=== PATIENT | female | born 1965 | race Caucasian/White ===

== ENCOUNTER 2017-07-31 13:02 | Emergency (ER) | payer SELFPAY ==
[~2017-07-31] VITALS: Ht 175.3 cm; Wt 63.5 kg
[~2017-07-31 13:02] MED LIST: IBUP400T18 PO; MULT1TAB52 PO; PRED50TA PO; PSEU120T58 PO
--- NOTE | 2017-07-31 13:56 | PHYS DOC ---
Past History Past Medical History: Other Past Surgical History: Other Smoking: Cigarettes, Greater than 1 pack/day Alcohol Use: None Drug Use: None Adult General Chief Complaint Chief Complaint: FLU SYMPTOM HPI HPI 52-year-old female patient with history of smoking complaining of cough and fever up to 101 and myalgia since yesterday. Patient complaining of shortness of breath and nausea without vomiting and hurting all over. Patient had sick contacts at home with positive flu and she thinks she has flu also. Review of Systems Review of Systems Constitutional: Reports fever and chills and generalized weakness Eyes: Denies change in visual acuity, redness, or eye pain [] HENT: Reports nasal congestion and sore throat and earache Respiratory: Reports cough and shortness of breath Cardiovascular: No additional information not addressed in HPI [] GI: Denies abdominal pain, vomiting, bloody stools or diarrhea , reports nausea [] : Denies dysuria or hematuria [] Musculoskeletal: Denies back pain or joint pain , reports myalgias she[] Integument: Denies rash or skin lesions , Neurologic: Denies headache, focal weakness or sensory changes [] Endocrine: Denies polyuria or polydipsia [] All other systems were reviewed and found to be within normal limits, except as documented in this note. Current Medications Current Medications Current Medications Medications (Trade) Dose Ordered Sig/Fantasma Start Time Stop Time Status Last Admin Dose Admin Acetaminophen/ Hydrocodone Bitart (Lortab 5/325) 1 tab 1X ONCE 07/31/17 13:45 07/31/17 13:46 DC Ondansetron HCl (Zofran Odt) 4 mg 1X ONCE 07/31/17 13:45 07/31/17 13:46 DC Allergies Allergies Allergies Coded Allergies Type Severity Reaction Last Updated Verified aspirin Allergy Intermediate gi 03/21/14 No tetracycline Allergy Intermediate gi 03/21/14 No Physical Exam Physical Exam Constitutional: Well developed, well nourished, mild distress,anxious, non- toxic appearance. [] HENT: Normocephalic, atraumatic, bilateral external ears normal, oropharynx moist, no oral exudates, nose normal. [] Eyes: PERRLA, EOMI, conjunctiva normal, no discharge. [] Neck: Normal range of motion, no tenderness, supple, no stridor. [] Cardiovascular:Heart rate regular rhythm, no murmur [] Lungs & Thorax: No respiratory distress, mild rhonchi and wheezing Abdomen: Bowel sounds normal, soft, no tenderness, no masses, no pulsatile masses. [] Skin: Warm, dry, no erythema, no rash. [] Back: No tenderness, no CVA tenderness. [] Extremities: No tenderness, no cyanosis, no clubbing, ROM intact, no edema. [] Neurologic: Alert and oriented X 3, normal motor function, normal sensory function, no focal deficits noted. [] Psychologic: Affect normal, judgement normal, mood normal. [] Current Patient Data Vital Signs Vital Signs Date Time Temp Pulse Resp B/P (MAP) Pulse Ox O2 Delivery O2 Flow Rate FiO2 07/31/17 13:46 97.9 82 22 98 EKG EKG [] Radiology/Procedures Radiology/Procedures [] Course & Med Decision Making Course & Med Decision Making Pertinent Labs reviewed. (See chart for details) Evaluation of patient in ER showed 52-year-old female patient with exposure to positive flu at home and complaining of myalgia cough and congestion since yesterday. She had mild rhonchi with negative flu test. Patient felt better after treatment in ER. Patient psychiatric to quit smoking and plan discharge patient home with diagnoses of upper respiratory infection. [] Dragon Disclaimer Dragon Disclaimer This electronic medical record was generated, in whole or in part, using a voice recognition dictation system. Departure Departure: Impression: Primary Impression: Upper respiratory infection Additional Impressions: Tobacco abuse Tobacco abuse counseling Disposition: HOME, SELF-CARE (At 1538) Condition: IMPROVED Referrals: PCP,NO (PCP) Patient Instructions: Smoking Cessation, Upper Respiratory Infection, Adult Additional Instructions: Quit smoking Drink plenty of liquids Follow-up with your primary care physician in 3-5 days Return to ER if not getting better Scripts Benzonatate (TESSALON PERLE) 100 Mg Capsule 1 CAP PO TID, #30 CAP Prov: KAY ARMENDARIZ MD 07/31/17 Hydrocodone Bit/Acetaminophen (NORCO 5-325 TABLET) 1 Each Tablet 1 TAB PO PRN Q6HRS Y for PAIN, #15 TAB 0 Refills Prov: KAY ARMENDARIZ MD 07/31/17 Amoxicillin (AMOXICILLIN) 500 Mg Capsule 1 CAP PO TID, #30 CAP Prov: KAY ARMENDARIZ MD 07/31/17 Problem Qualifiers KAY ARMENDARIZ MD Jul 31, 2017 13:56
[2017-07-31] MEDS: ONDANSETRON ODT 4 MG TAB.RAPDIS PO ONE (14:07)
[2017-07-31] MEDS: HYDROcodone/APAP 5/325MG 1 TAB TABLET PO ONE (14:07)
[2017-07-31 14:09] LABS: INFLUENZA A PATIENT NEGATIVE (NEGATIVE); INFLUENZA B PATIENT NEGATIVE (NEGATIVE)
[2017-07-31 14:49] LABS: BACTERIA,URINE 0 /HPF (0-FEW); BILIRUBIN,URINE NEG (NEG); CLARITY,URINE CLEAR; COLOR,URINE YELLOW; GLUCOSE,URINE NEG (NEG); NITRITE,URINE NEG (NEG); RBC,URINE 0 /HPF (0-2); SQUAMOUS EPITHELIAL CELL,UR OCC /LPF; UROBILINOGEN,URINE 0.2 mg/dL (0.2 mg/dL); WBC,URINE OCC /HPF (0-4)
[2017-07-31] MEDS ORDERED: HYDR-971 PO (15:42)
[2017-07-31] MEDS ORDERED: BENZ100C PO (15:42)
[2017-07-31] MEDS ORDERED: AMOX500C PO (15:42)
[2017-07-31 15:55] VITALS: BP 122/80
== END 2017-07-31 15:55 | disposition home or self-care (01) ==
LOC: ER 13:02
DX: J06.9 Acute upper respiratory infection, unspecified (principal); F17.210 Nicotine dependence, cigarettes, uncomplicated; Z71.6 Tobacco abuse counseling; Z88.6 Allergy status to analgesic agent; Z88.1 Allergy status to other antibiotic agents
CPT/HCPCS: 81001; 87804; 99284; Q0162

== ENCOUNTER 2017-08-06 04:42 | Emergency (ER) | payer SELFPAY ==
[~2017-08-06] VITALS: Ht 175.3 cm; Wt 63.5 kg
[~2017-08-06 04:42] MED LIST changes: +AMOX500C PO; +BENZ100C PO; +HYDR-971 PO
--- NOTE | 2017-08-06 05:01 | PHYS DOC ---
Past History Past Medical History: Other Past Surgical History: Other Smoking: Cigarettes, Greater than 1 pack/day Alcohol Use: None Drug Use: None Adult General Chief Complaint Chief Complaint: ALLERGIC REACTION HPI HPI Patient is a 52-year-old female who presents with complaints of allergic reaction, body rash, trouble breathing. Patient was recently started on amoxicillin for an upper respiratory infection. Patient started developing rash yesterday. Patient denies any fevers, chills. Patient does have a cough. Patient describes the rash as itchy, not painful Review of Systems Review of Systems Constitutional: Denies fever or chills [] Eyes: Denies change in visual acuity, redness, or eye pain [] HENT: Yes to nasal congestion, dry throat. Nonproductive cough Respiratory: Nonproductive cough, shortness of breath Cardiovascular: No pain GI: Denies abdominal pain, nausea, vomiting, Musculoskeletal: Denies back pain or joint pain [] Integument: Diffuse itchy rash Neurologic: Denies headache, focal weakness or sensory changes [] lydipsia [] All other systems were reviewed and found to be within normal limits, except as documented in this note. Allergies Allergies Allergies Coded Allergies Type Severity Reaction Last Updated Verified aspirin Allergy Intermediate gi 03/21/14 No tetracycline Allergy Intermediate gi 03/21/14 No Physical Exam Physical Exam Constitutional: Well developed, well nourished, no acute distress, non-toxic appearance. [] HENT: Normocephalic, atraumatic, normal oropharynx without lesions, airways patent, no drooling Eyes: EOMI, conjunctiva normal, no discharge. [] Neck: Normal range of motion, no tenderness, supple, no stridor. [] Cardiovascular:Heart rate regular rhythm, no murmur, equal pulses, normal perfusion Lungs & Thorax: Bilateral breath sounds clear to auscultation, no tachypnea, no wheezing, no rales, no rhonchi Abdomen: Bowel sounds normal, soft, no tenderness, Skin: Warm, dry, no erythema, diffuse erythematous macular nonpainful rash Back: No tenderness, Extremities: No tenderness, ROM intact, no edema. [] Neurologic: Alert and oriented X 3, normal motor function, normal speech no focal deficits noted. [] Psychologic: Affect normal, judgement normal, mood normal. [] EKG EKG [] Radiology/Procedures Radiology/Procedures [] Course & Med Decision Making Course & Med Decision Making Pertinent Labs and Imaging studies reviewed. (See chart for details) Patient looks well and is nontoxic. Vital signs are unremarkable at the time of the ED evaluation. Of note, patient is satting 98% on room air and the labs are clear to auscultation bilaterally. There is no accessory muscle use, no tachypnea, no respiratory distress. The oropharynx is normal and the airways patent, there is no lesions or mucosal involvement. Patient has been having a rash for several hours now. Blood pressure is unremarkable. There are no signs of anaphylaxis or respiratory compromise at the time of the ED evaluation. Given the presentation I do not believe the patient is in need of imaging or labs and his stable for outpatient follow-up. Strict return precautions have been discussed with the patient progress to follow up as directed. [] Dragon Disclaimer Dragon Disclaimer This electronic medical record was generated, in whole or in part, using a voice recognition dictation system. Departure Departure: Impression: Primary Impression: Allergic reaction Disposition: HOME, SELF-CARE Condition: STABLE Referrals: PCP,NO (PCP) Please follow with your doctor or one of the clinics in the list provided to you for recheck and reevaluation in 2-4 days. Please return to the ED immediately if you start having any problems swallowing or with with speech or breathing problems or any other new concerns arise Patient Instructions: Allergies, Generic Scripts Diphenhydramine Hcl (BENADRYL) 25 Mg Capsule 25 MG PO BID for 5 Days, #10 CAP Prov: Phu ALEJO MD 08/06/17 Famotidine (PEPCID) 20 Mg Tablet 1 TAB PO BID for 5 Days, #10 TAB 3 Refills Prov: Phu ALEJO MD 08/06/17 Phu ALEJO MD Aug 06, 2017 05:01
[2017-08-06] MEDS ORDERED: FAMO-63 PO (05:10)
[2017-08-06] MEDS ORDERED: DIPH25CA58 PO (05:10)
[2017-08-06 05:14] VITALS: BP 132/74
[2017-08-06] MEDS ORDERED: FAMOTIDINE 20 MG TABLET PO ONE (05:15)
[2017-08-06] MEDS ORDERED: DEXAMETHASONE 4 MG TABLET PO ONE (05:15)
[2017-08-06] MEDS ORDERED: diphenhydrAMINE HCL 25 MG CAPSULE PO ONE (05:15)
[2017-08-06] MEDS ORDERED: diphenhydrAMINE 50 MG/ML VIAL IVP ONE (05:30)
[2017-08-06] MEDS ORDERED: DEXAMETHASONE SOD PHOS 10 MG/ML VIAL IV ONE (05:30)
[2017-08-06] MEDS ORDERED: FAMOTIDINE 20 MG/2 ML VIAL IVP ONE (05:30)
== END 2017-08-06 05:31 | disposition home or self-care (01) ==
LOC: ER 04:42
DX: T78.40XA Allergy, unspecified, initial encounter (principal); F17.210 Nicotine dependence, cigarettes, uncomplicated; Z88.6 Allergy status to analgesic agent; Z88.1 Allergy status to other antibiotic agents; X58.XXXA Exposure to other specified factors, initial encounter
CPT/HCPCS: 96374; 96375; 99284; J1100; J1200; S0028

== ENCOUNTER 2017-08-08 02:26 | Emergency (ER) | payer SELFPAY ==
[~2017-08-08] VITALS: Ht 175.3 cm; Wt 60.5 kg
[~2017-08-08 02:26] MED LIST changes: +DIPH25CA58 PO; +FAMO-63 PO
--- NOTE | 2017-08-08 02:29 | ED.ADGEN ---
Past History Past Medical History: Other Past Surgical History: Other Smoking: Cigarettes, Greater than 1 pack/day Alcohol Use: None Drug Use: None Adult General Chief Complaint Chief Complaint " This all started after taking some amoxicillin... I was in here the other day.. and got some pepcid and benadryl.. but it jaylen gotten worse again.." HPI HPI Patient is a 52 year old female who presents with above hx and complaints of diffuse body rash that appears to be somewhat hives/urticaria in presentation. Patient not currently on any steroids but has been taking Pepcid as directed. Fill other changes in soaps, detergents, foods, or other exposures.. No recent travel or specific ill contacts. Patient does smoke. Review of Systems Review of Systems Constitutional: Denies fever or chills [] Eyes: Denies change in visual acuity, redness, or eye pain [] HENT: Denies nasal congestion or sore throat [] Respiratory: Denies cough or shortness of breath [] Cardiovascular: No additional information not addressed in HPI [] GI: Denies abdominal pain, nausea, vomiting, bloody stools or diarrhea [] : Denies dysuria or hematuria [] Musculoskeletal: Denies back pain or joint pain [] Integument: Complains of diffuse rash Neurologic: Denies headache, focal weakness or sensory changes [] Endocrine: Denies polyuria or polydipsia [] All other systems were reviewed and found to be within normal limits, except as documented in this note. Family History Family History Noncontributory Current Medications Current Medications Current Medications Medications (Trade) Dose Ordered Sig/Fantasma Start Time Stop Time Status Last Admin Dose Admin Albuterol Sulfate (Ventolin Hfa) 2 puff 1X ONCE 08/08/17 04:30 08/08/17 04:31 DC 08/08/17 04:08 2 PUFF Albuterol/ Ipratropium (Duoneb) 3 ml STK-MED ONCE 08/08/17 02:40 08/08/17 02:41 DC Diphenhydramine HCl (Benadryl) 50 mg 1X ONCE 08/08/17 02:45 08/08/17 02:46 DC 08/08/17 02:43 50 MG Famotidine (Pepcid Vial) 20 mg STK-MED ONCE 08/08/17 02:40 08/08/17 02:41 DC Lorazepam (Ativan) 2 mg 1X ONCE 08/08/17 04:45 08/08/17 04:46 DC 08/08/17 04:31 2 MG Methylprednisolone Sodium Succinate (SOLU-Medrol 125MG VIAL) 125 mg STK-MED ONCE 08/08/17 02:40 08/08/17 02:41 DC Oxycodone/ Acetaminophen (Percocet 10/325) 1 tab 1X ONCE 08/08/17 04:00 08/08/17 04:02 DC 08/08/17 03:25 1 TAB Oxycodone/ Acetaminophen (Percocet 5/325) 1 tab STK-MED ONCE 08/08/17 03:20 08/08/17 03:21 DC Allergies Allergies Allergies Coded Allergies Type Severity Reaction Last Updated Verified amoxicillin Allergy Intermediate Rash 08/08/17 Yes aspirin Allergy Intermediate gi 08/08/17 No tetracycline Allergy Intermediate gi 08/08/17 No NSAIDS (Non-Steroidal Anti-Inflamma Adverse Reaction Intermediate Nausea and Vomiting 08/08/17 Yes Physical Exam Physical Exam Constitutional: Well developed, well nourished, in moderately acute distress, non-toxic appearance. [] HENT: Normocephalic, atraumatic, bilateral external ears normal, oropharynx moist, no oral exudates, Red hair. No stridor. Rhinorrhea. Eyes: PERRLA, EOMI, conjunctiva normal, no discharge. [] Neck: Normal range of motion, no tenderness, supple, no stridor. [] Cardiovascular:Heart rate regular rhythm, no murmur [] Lungs & Thorax: Bilateral breath sounds equal apexes few scattered wheezes on auscultation [] Abdomen: Bowel sounds normal, soft, no tenderness, no masses, no pulsatile masses. [] Skin: Warm, dry, no erythema, hives-like rash Back: No tenderness, no CVA tenderness. [] Extremities: No tenderness, no cyanosis, no clubbing, ROM intact, no edema. [] Neurologic: Alert and oriented X 3, normal motor function, normal sensory function, no focal deficits noted. [] Psychologic: Affect anxious, judgement normal, mood normal. [] Current Patient Data Vital Signs Vital Signs Date Time Temp Pulse Resp B/P (MAP) Pulse Ox O2 Delivery O2 Flow Rate FiO2 08/08/17 04:30 97.6 71 22 140/72 (94) 96 Room Air EKG EKG [] Radiology/Procedures Radiology/Procedures [] Course & Med Decision Making Course & Med Decision Making Pertinent Labs and Imaging studies reviewed. (See chart for details). Continue Pepcid or Zantac. You may crush the Pepcid and Zantac tablets.. . Take Benadryl 50 mg up 4 times a day. Take prednisone 50 mg a day for 5 days. Push fluids. Follow-up primary care. If rash does not clear will need further work up and eval. Even possible skin bx. Pt. counseled on smoking cessation. [] Final Impression Final Impression 1. Allergic Reaction[] 2. Delayed Drug Reaction 3. Hx of Viral URI 4. Possible Allergy to PCN Problems: Dragon Disclaimer Dragon Disclaimer This electronic medical record was generated, in whole or in part, using a voice recognition dictation system. YOLY BRODERICK MD Aug 08, 2017 02:29
[2017-08-08] MEDS ORDERED: diphenhydrAMINE 50 MG/ML VIAL ONE (02:40)
[2017-08-08] MEDS ORDERED: methylPREDNISolone SOD SUCC PF 125 MG/2 ML VIAL. ONE (02:40)
[2017-08-08] MEDS ORDERED: IPRATRPIUM/ALBUTEROL 0.5/2.5MG 3 ML NEBU. ONE (02:40)
[2017-08-08] MEDS ORDERED: FAMOTIDINE 20 MG/2 ML VIAL ONE (02:40)
[2017-08-08] MEDS ORDERED: diphenhydrAMINE 50 MG/ML VIAL IVP ONE (02:45)
[2017-08-08] MEDS ORDERED: PRED50TA PO (02:51)
[2017-08-08] MEDS ORDERED: RANI150T6 PO (02:51)
[2017-08-08] MEDS ORDERED: FAMOTIDINE 20 MG/2 ML VIAL IVP ONE (03:00)
[2017-08-08] MEDS ORDERED: IPRATRPIUM/ALBUTEROL 0.5/2.5MG 3 ML NEBU. NEB ONE (03:00)
[2017-08-08] MEDS ORDERED: methylPREDNISolone SOD SUCC PF 125 MG/2 ML VIAL. IV ONE (03:00)
[2017-08-08] MEDS ORDERED: oxyCODONE/APAP 5/325 1 TAB TABLET ONE (03:20)
[2017-08-08] MEDS ORDERED: oxyCODONE/APAP 10/325 1 TAB TABLET PO ONE (04:00)
[2017-08-08 04:30] VITALS: BP 140/72
[2017-08-08] MEDS ORDERED: ALBUTEROL SULFATE 8GM INHALER. INH ONE (04:30)
[2017-08-08] MEDS ORDERED: LORazepam 1 MG TABLET PO ONE (04:45)
== END 2017-08-08 04:40 | disposition home or self-care (01) ==
LOC: ER 02:26
DX: T47.0X5A Adverse effect of histamine H2-receptor blockers, initial encounter (principal); F17.210 Nicotine dependence, cigarettes, uncomplicated; Z88.1 Allergy status to other antibiotic agents; Z88.6 Allergy status to analgesic agent; Y92.89 Other specified places as the place of occurrence of the external cause
CPT/HCPCS: 94640; 96374; 96375; 99284; J1200; J2930; J7613; J7620; S0028; 94664

== ENCOUNTER 2017-08-15 05:44 | Emergency (ER) | payer SELFPAY ==
[~2017-08-15] VITALS: Ht 175.3 cm; Wt 60.5 kg
[~2017-08-15 05:44] MED LIST changes: +RANI150T6 PO
[2017-08-15] MEDS ORDERED: 0.9 % SODIUM CHLORIDE 10 ML DISP.SYRIN. IV PRN (06:15)
[2017-08-15] MEDS ORDERED: IV NORMAL SALINE 1,000ML 1,000 ML IV SCH (06:15)
--- NOTE | 2017-08-15 06:19 | PHYS DOC ---
Past History Past Medical History: Other Past Surgical History: Other Smoking: Cigarettes, Greater than 1 pack/day Alcohol Use: None Drug Use: None Adult General Chief Complaint Chief Complaint: rash, blister in mouth HPI HPI 52-year-old female patient states she had upper respiratory infection 1 month ago and treated with amoxicillin and developed a pruritic generalized rash and was seen in this emergency room in 2 other medication and treated for allergic rash. Patient said the rash comes and goes and complaining of generalized pruritic rash for the last 2 days with redness of her feet. Patient complaining of painful onset of her lips and mouth since yesterday and station fever of 103. Patient states her cough does not getting better and she still has dry cough with nasal congestion. Patient did not follow-up with the primary care physician for the last 1 month. Review of Systems Review of Systems Constitutional: Reports fever Eyes: Denies change in visual acuity, redness, or eye pain [] HENT: Postnasal congestion] Respiratory: Reports cough and shortness of breath Cardiovascular: No additional information not addressed in HPI [] GI: Denies abdominal pain, nausea, vomiting, bloody stools or diarrhea [] : Denies dysuria or hematuria [] Musculoskeletal: reports rash and oral ulcers Neurologic: Denies headache, focal weakness or sensory changes [] Endocrine: Denies polyuria or polydipsia [] All other systems were reviewed and found to be within normal limits, except as documented in this note. Current Medications Current Medications Current Medications Medications (Trade) Dose Ordered Sig/Fantasma Start Time Stop Time Status Last Admin Dose Admin Famotidine (Pepcid Vial) 20 mg 1X ONCE 08/15/17 06:15 08/15/17 06:16 UNV Methylprednisolone Sodium Succinate (SOLU-Medrol 125MG VIAL) 125 mg 1X ONCE 08/15/17 06:15 08/15/17 06:16 UNV Sodium Chloride (Normal Saline Flush) 10 ml QSHIFT PRN 08/15/17 06:15 UNV Allergies Allergies Allergies Coded Allergies Type Severity Reaction Last Updated Verified amoxicillin Allergy Intermediate Rash 08/08/17 Yes aspirin Allergy Intermediate gi 08/08/17 No tetracycline Allergy Intermediate gi 08/08/17 No NSAIDS (Non-Steroidal Anti-Inflamma Adverse Reaction Intermediate Nausea and Vomiting 08/08/17 Yes Physical Exam Physical Exam Constitutional: Well developed, well nourished, mild distress, non-toxic appearance, anxious. [] HENT: Normocephalic, atraumatic, bilateral external ears normal, oropharynx moist, no oral exudates, aphthous lesion in oral mucosa, nose normal. [] Eyes: PERRLA, EOMI, conjunctiva normal, no discharge. [] Neck: Normal range of motion, no tenderness, supple, no stridor. [] Cardiovascular:Heart rate regular rhythm, no murmur [] Lungs & Thorax: Bilateral breath sounds clear to auscultation [] Abdomen: Bowel sounds normal, soft, no tenderness, no masses, no pulsatile masses. [] Skin: Generalized micropapular rash Back: No tenderness, no CVA tenderness. [] Extremities: No tenderness, no cyanosis, no clubbing, ROM intact, no edema. [] Neurologic: Alert and oriented X 3, normal motor function, normal sensory function, no focal deficits noted. [] Psychologic: Anxious EKG EKG [] Radiology/Procedures Radiology/Procedures Chest x-ray interpreted by me and did not show acute finding[] Course & Med Decision Making Course & Med Decision Making Pertinent Labs and Imaging studies reviewed. (See chart for details) Evaluation of patient in ER showed 52-year-old female patient with complaining of intermittent rash for 1 month and blister like lesion in her mouth. Patient has aphthous with generalized micropapular rash. Labs and chest x-ray was unremarkable. Patient felt better with treatment in ER. Patient psychiatric to follow-up with her primary care physician for chronic rash. discharge: I've spoken with the patient and/or caregivers. I've explained the patient's condition, diagnosis and treatment plan based on information available to me at this time. I've answered the patient's and/or caregivers questions and addressed any concerns. The patient and/or caregivers have a good understanding the patient's diagnosis, condition and treatment plan as can be expected at this point. Vital signs have been stabilized. The patient's condition is stable for discharge from the emergency department. The patient will pursue further outpatient evaluation with her primary care provider or other designated consulting physician as outlined in the discharge instructions. Patient and/or caregivers are agreeable to this plan of care and follow-up instructions have been explained in detail. The patient and/or caregivers have received these instructions in written format and expressed understanding of these discharge instructions. The patient and her caregivers are aware that if any significant change in condition or worsening of symptoms should prompt him to immediately return to this of the closest emergency department. If an emergent department is not readily available I would encourage him to call 911.] Keyur Disclaimer Keyur Disclaimer This electronic medical record was generated, in whole or in part, using a voice recognition dictation system. Departure Departure: Impression: Primary Impression: Aphthous ulcer Additional Impression: Allergic drug rash Disposition: HOME, SELF-CARE (At 0748) Condition: IMPROVED Referrals: PCP,NO (PCP) Patient Instructions: Drug Allergy, Stomatitis Additional Instructions: Drink plenty of liquids Follow-up with your primary care physician in 3-5 days Return to ER if not getting better Scripts [lidocaine viscus] No Conflict Check 1 JAVIER TOP, #120 ML Prov: KAY ARMENDARIZ MD 08/15/17 Hydroxyzine Hcl (HYDROXYZINE HCL) 25 Mg Tablet 1 TAB PO TID, #30 TAB Prov: KAY ARMENDARIZ MD 08/15/17 Methylprednisolone (MEDROL) 4 Mg Tab.ds.pk 1 PKG PO UD, #1 PKG Prov: KAY ARMENDARIZ MD 08/15/17 Problem Qualifiers KAY ARMENDARIZ MD Aug 15, 2017 06:19
[2017-08-15] MEDS ORDERED: LIDOCAINE 2% VISCOUS 15 ML SOLUTION. SWSW ONE (06:30)
[2017-08-15] MEDS ORDERED: diphenhydrAMINE 50 MG/ML VIAL IVP ONE (06:30)
[2017-08-15] MEDS ORDERED: methylPREDNISolone SOD SUCC PF 125 MG/2 ML VIAL. IV ONE (06:30)
[2017-08-15] MEDS ORDERED: FAMOTIDINE 20 MG/2 ML VIAL IVP ONE (06:30)
[2017-08-15] MEDS ORDERED: IPRATRPIUM/ALBUTEROL 0.5/2.5MG 3 ML NEBU. NEB ONE (06:30)
[2017-08-15 07:06] LABS: INFLUENZA A PATIENT NEGATIVE (NEGATIVE); INFLUENZA B PATIENT NEGATIVE (NEGATIVE)
[2017-08-15 07:14] LABS: BACTERIA,URINE FEW /HPF (0-FEW); BILIRUBIN,URINE NEG (NEG); CLARITY,URINE HAZY; COLOR,URINE YELLOW; GLUCOSE,URINE NEG (NEG); NITRITE,URINE NEG (NEG); RBC,URINE RARE /HPF (0-2); SQUAMOUS EPITHELIAL CELL,UR FEW /LPF; UROBILINOGEN,URINE 0.2 mg/dL (0.2 mg/dL)
[2017-08-15 07:23] LABS: BASO % 1 % (0-3); EOS # 0.2 x10^3/uL (0.0-0.7); EOS % 3 % (0-3); LYMPH # 0.8 x10^3/uL (1.0-4.8); LYMPH % 16 % (24-48); MEAN CORPUSCULAR HEMOGLOBIN 31 pg (25-35); MEAN CORPUSCULAR HGB CONC 34 g/dL (31-37); MEAN CORPUSCULAR VOLUME 91 fL (79-100); MONO # 0.5 x10^3/uL (0.0-1.1); MONO % 9 % (0-9); NEUT # 3.8 x10^3uL (1.8-7.7); NEUT % 72 % (31-73); PLATELET COUNT 164 x10^3/uL (140-400); RED BLOOD COUNT 3.87 x10^6/uL (3.50-5.40); RED CELL DISTRIBUTION WIDTH 13.1 % (11.5-14.5); WHITE BLOOD COUNT 5.3 x10^3/uL (4.0-11.0)
[2017-08-15 07:40] LABS: ALBUMIN 2.9 g/dL (3.4-5.0); ALBUMIN/GLOBULIN RATIO 0.6 (1.0-1.7); CALCIUM 8.8 mg/dL (8.5-10.1); CREATININE 0.9 mg/dL (0.6-1.0); GFR 65.2; POTASSIUM 4.2 mmol/L (3.5-5.1); TOTAL BILIRUBIN 0.5 mg/dL (0.2-1.0); TOTAL PROTEIN 7.5 g/dL (6.4-8.2)
[2017-08-15] MEDS ORDERED: METH4TAB2 PO (07:53)
[2017-08-15] MEDS ORDERED: LIDOCAINE VISCUS TOP (07:53)
[2017-08-15] MEDS ORDERED: HYDR25TA PO (07:53)
[2017-08-15 08:17] VITALS: BP 98/55
--- NOTE | 2017-08-15 09:34 | RAD ---
PA AND LATERAL CHEST RADIOGRAPH Clinical Indication: cough. Shortness of breath x1 month. Comparison: None. Findings: The cardiomediastinal silhouette is normal. Pulmonary vasculature is normal. Mild left lower lobe bronchopneumonia. Left nipple shadow is incidentally noted. No pleural effusion or pneumothorax is seen. There is no acute bone abnormality. IMPRESSION: Left lower lobe bronchopneumonia.
== END 2017-08-15 08:20 | disposition home or self-care (01) ==
LOC: ER 05:44
DX: L27.0 Generalized skin eruption due to drugs and medicaments taken internally (principal); K12.0 Recurrent oral aphthae; T50.905A Adverse effect of unspecified drugs, medicaments and biological substances, initial encounter; F17.210 Nicotine dependence, cigarettes, uncomplicated; Z88.6 Allergy status to analgesic agent; Z88.1 Allergy status to other antibiotic agents; Y92.89 Other specified places as the place of occurrence of the external cause
CPT/HCPCS: 36415; 71046; 80053; 81001; 85025; 87804; 96361; 96374; 96375; 99285; J1200; J2930; J7620; S0028; J7030

== ENCOUNTER 2017-10-01 10:48 | Emergency (ER) | payer SELFPAY ==
[~2017-10-01] VITALS: Ht 175.3 cm; Wt 62.6 kg
[~2017-10-01 10:48] MED LIST changes: +HYDR25TA PO; +LIDOCAINE VISCUS TOP; +METH4TAB2 PO
[2017-10-01] MEDS ORDERED: LIDO:MAALOX 1:1 20 ML SINGLE DOSE. PO ONE (11:30)
[2017-10-01 11:53] LABS: BASO % 1 % (0-3); EOS # 0.1 x10^3/uL (0.0-0.7); EOS % 3 % (0-3); HEMATOCRIT 37.3 % (36.0-47.0); HEMOGLOBIN 12.7 g/dL (12.0-15.5); LYMPH # 0.7 x10^3/uL (1.0-4.8); LYMPH % 19 % (24-48); MEAN CORPUSCULAR HEMOGLOBIN 30 pg (25-35); MEAN CORPUSCULAR HGB CONC 34 g/dL (31-37); MEAN CORPUSCULAR VOLUME 89 fL (79-100); MONO # 0.3 x10^3/uL (0.0-1.1); MONO % 9 % (0-9); NEUT # 2.5 x10^3uL (1.8-7.7); NEUT % 67 % (31-73); PLATELET COUNT 180 x10^3/uL (140-400); RED CELL DISTRIBUTION WIDTH 14.2 % (11.5-14.5); WHITE BLOOD COUNT 3.7 x10^3/uL (4.0-11.0)
--- NOTE | 2017-10-01 11:55 | PHYS DOC ---
Past History Past Medical History: Other Past Surgical History: Other Smoking: Cigarettes, Greater than 1 pack/day Alcohol Use: Occasionally Drug Use: None Social History Narrative: history of marijuana use many years ago Adult General Chief Complaint Chief Complaint: CHOKING HPI HPI 52-year-old female patient state for the last 4 days she feels something is stuck in her throat and unable to eat large piece of food and had to eat very small piece of food. Patient states she was able to burp because she feels some tingling in her throat does not let the burp comes out. Patient denies vomiting , diarrhea, abdominal pain, chest pain, history of the same problem. Patient states she took [id number] Prilosec without improvement of her condition, dizziness, weakness, dehydration. Review of Systems Review of Systems Constitutional: Denies fever or chills [] Eyes: Denies change in visual acuity, redness, or eye pain [] HENT: Denies nasal congestion or sore throat [] Respiratory: Denies cough or shortness of breath [] Cardiovascular: No additional information not addressed in HPI [] GI: Denies abdominal pain, nausea, vomiting, bloody stools or diarrhea [] : Denies dysuria or hematuria [] Musculoskeletal: Denies back pain or joint pain [] Integument: Denies rash or skin lesions [] Neurologic: Denies headache, focal weakness or sensory changes [] Endocrine: Denies polyuria or polydipsia [] All other systems were reviewed and found to be within normal limits, except as documented in this note. Current Medications Current Medications Current Medications Medications (Trade) Dose Ordered Sig/[facility] Start Time Stop Time Status Last Admin Dose Admin Multi-Ingredient Mouthwash/Gargle (Gi Cocktail) 20 ml 1X ONCE 10/01/17 11:30 10/01/17 11:31 DC 10/01/17 11:16 20 ML Allergies Allergies Allergies Coded Allergies Type Severity Reaction Last Updated Verified amoxicillin Allergy Intermediate Rash 10/01/17 Yes aspirin Allergy Intermediate gi 10/01/17 No tetracycline Allergy Intermediate gi 10/01/17 No NSAIDS (Non-Steroidal Anti-Inflamma Adverse Reaction Intermediate Nausea and Vomiting 10/01/17 Yes Physical Exam Physical Exam Constitutional: Well developed, well nourished, mild distress, non-toxic appearance. [] HENT: Normocephalic, atraumatic, bilateral external ears normal, oropharynx moist, no oral exudates, nose normal. [] Eyes: PERRLA, EOMI, conjunctiva normal, no discharge. [] Neck: Normal range of motion, no tenderness, supple, no stridor. [] Cardiovascular:Heart rate regular rhythm, no murmur [] Lungs & Thorax: Bilateral breath sounds clear to auscultation [] Abdomen: Bowel sounds normal, soft, no tenderness, no masses, no pulsatile masses. [] Skin: Warm, dry, no erythema, no rash. [] Back: No tenderness, no CVA tenderness. [] Extremities: No tenderness, no cyanosis, no clubbing, ROM intact, no edema. [] Neurologic: Alert and oriented X 3, normal motor function, normal sensory function, no focal deficits noted. [] Psychologic: Anxious, judgement normal, mood normal. [] Current Patient Data Vital Signs Vital Signs Date Time Temp Pulse Resp B/P (MAP) Pulse Ox O2 Delivery O2 Flow Rate FiO2 10/01/17 10:48 98.4 108 16 99 Room Air EKG EKG [] Radiology/Procedures Radiology/Procedures [] Course & Med Decision Making Course & Med Decision Making Pertinent Labs reviewed. (See chart for details) Evaluation of patient in ER showed 52-year-old female patient with complaining of foreign body sensation in her esophagus for 4 days that was able to swallow small had unremarkable physical exam except for anxiety. Labs was unremarkable. I planned to obtain esophagus barium swallow study that was not available at this hospital and order for outpatient for tomorrow was given. Patient treated with GI cocktail and felt better. Patient did not have episodes of vomiting and choking while she was in ER. [] Dragon Disclaimer Dragon Disclaimer This electronic medical record was generated, in whole or in part, using a voice recognition dictation system. Departure Departure: Impression: Primary Impression: Sensation of foreign body in esophagus Additional Impressions: Tobacco abuse Tobacco abuse counseling Disposition: HOME, SELF-CARE (At 1217) Condition: IMPROVED Referrals: PCP,DANIELLA (PCP) Patient Instructions: Dysphagia, Esophageal Spasm, Smoking Cessation Additional Instructions: Drink plenty of liquids Follow-up with your primary care physician in 3-5 days Return to ER if not getting better Follow-up with [facility] outpatient radiology for x ray of your esophagus Scripts Methylprednisolone (MEDROL) 4 Mg Tab.ds.pk 1 PKG PO UD, #1 PKG Prov: KAY ARMENDARIZ MD 10/01/17 [viscus Lidocaine] No Conflict Check 5 ML PO QID Y for PAIN, #120 ML Prov: KAY ARMENDARIZ MD 10/01/17 Problem Qualifiers KAY ARMENDARIZ MD Oct 01, 2017 11:55
[2017-10-01 12:07] LABS: ALBUMIN 3.5 g/dL (3.4-5.0); ALBUMIN/GLOBULIN RATIO 0.8 (1.0-1.7); CALCIUM 9.3 mg/dL (8.5-10.1); CREATININE 0.7 mg/dL (0.6-1.0); GFR 87.2; POTASSIUM 4.4 mmol/L (3.5-5.1); TOTAL BILIRUBIN 0.3 mg/dL (0.2-1.0); TOTAL PROTEIN 8.1 g/dL (6.4-8.2)
[2017-10-01] MEDS ORDERED: viscus Lidocaine PO (12:27)
[2017-10-01] MEDS ORDERED: METH4TAB2 PO (12:34)
[2017-10-01 13:22] VITALS: BP 110/76
== END 2017-10-01 13:22 | disposition home or self-care (01) ==
LOC: ER 10:48
DX: R19.8 Other specified symptoms and signs involving the digestive system and abdomen (principal); F17.210 Nicotine dependence, cigarettes, uncomplicated; Z71.6 Tobacco abuse counseling; Z88.6 Allergy status to analgesic agent; Z88.1 Allergy status to other antibiotic agents
CPT/HCPCS: 36415; 80053; 85025; 99284

== ENCOUNTER → 2017-10-19 | Outpatient (CLI) | payer SELFPAY ==
[2017-10-01 13:22] VITALS: BP 110/76
[~2017-10-19] MED LIST changes: +viscus Lidocaine PO
--- NOTE | 2017-10-19 14:02 | RAD ---
Barium esophagram History: Esophageal spasms and dysphagia for a month Comparison: None. Findings: Barium esophagram was performed. Overall caliber of the esophagus is within normal limits. There is diffuse prominent wall irregularity involving most of the esophagus other than some sparing near the lower esophageal sphincter. There are multifocal ulcerations. Fluoroscopy time: 0.8 minutes, 87 images Impression: 1. There is diffuse prominent wall irregularity of the esophagus most concerning for esophagitis such as esophageal Candidiasis. Distribution with sparing of distal esophagus makes sequela of reflux esophagitis less likely. Superficial spreading carcinoma is also considered less likely given long segment of involvement. Findings were discussed with Dr. Robin Purvis's nurse on October 19, 2017 as patient was advised to contact their office for further evaluation. Electronically signed by: Yusuf Kinney MD (10/19/2017 1:58 PM) [id number]
== END | disposition home or self-care (01) ==
LOC: RAD 09:52
PROVIDERS: ATTEND Family Medicine
DX: K22.4 Dyskinesia of esophagus (principal); Z87.891 Personal history of nicotine dependence
CPT/HCPCS: 74220

== ENCOUNTER 2017-11-07 07:22 | Emergency (ER) | payer SELFPAY ==
[~2017-11-07] VITALS: Ht 175.3 cm; Wt 62.6 kg
[~2017-11-07 07:22] MED LIST changes: +RANI150T21 PO; -RANI150T6 PO
[2017-11-07 07:28] VITALS: BP 117/81
--- NOTE | 2017-11-07 10:33 | ED.ADGEN ---
Past History Past Medical History: Other Past Surgical History: Other Smoking: Cigarettes, Greater than 1 pack/day Alcohol Use: Occasionally Drug Use: None Adult General Chief Complaint Chief Complaint Sore throat HPI HPI Patient is a 52 year old female with h/o fungal esophagitis diagnosed by Dr. Kelly and currently on treatment with Nystatin for the past 2 weeks. Patient reports persistent throat pain, denies painful or difficulty swallowing. No nausea vomiting. No hematemesis chest pain shortness of breath. No fever chills or sweats. Patient states she was supposed to be prescribed pain medication but was not given a prescription from Dr. Kelly's office and that she was instructed to go to the ED for further pain management. [] Review of Systems Review of Systems ROS as per HPI. All other systems were reviewed and found to be within normal limits, except as documented in this note. Allergies Allergies Allergies Coded Allergies Type Severity Reaction Last Updated Verified amoxicillin Allergy Intermediate Rash 10/01/17 Yes aspirin Allergy Intermediate gi 10/01/17 No tetracycline Allergy Intermediate gi 10/01/17 No NSAIDS (Non-Steroidal Anti-Inflamma Adverse Reaction Intermediate Nausea and Vomiting 10/01/17 Yes Physical Exam Physical Exam Constitutional: Well developed, well nourished, no acute distress, non-toxic appearance. [] HENT: Normocephalic, atraumatic, bilateral external ears normal, oropharynx moist, no oral exudates, nose normal. [] Eyes: PERRLA, EOMI, conjunctiva normal. [] Lungs & Thorax: Lungs clear. [] Current Patient Data Vital Signs Vital Signs Date Time Temp Pulse Resp B/P (MAP) Pulse Ox O2 Delivery O2 Flow Rate FiO2 11/07/17 07:28 98.0 96 16 99 Room Air EKG EKG [] Radiology/Procedures Radiology/Procedures [] Course & Med Decision Making Course & Med Decision Making Pertinent Labs and Imaging studies reviewed. (See chart for details) [Benign exam. I discussed with patient limitations of physical exam and management of fungal esophagitis in the emergency department. I discussed with her my concern of narcotics masking underlying disease which may be progressive. She recommended follow-up with her GI physician BAUTISTA or go the closest facility with GI coverage. In the interim, patient was instructed to take Tylenol. She is also referred to a local PCP. > ] Final Impression Final Impression [1. Esophagitis] Problems: Dragon Disclaimer Dragon Disclaimer This electronic medical record was generated, in whole or in part, using a voice recognition dictation system. ALEXI MICHELE DO November 07, 2017 10:33
== END 2017-11-07 07:52 | disposition home or self-care (01) ==
LOC: ER 07:22
DX: K20.8 Other esophagitis (principal); F17.200 Nicotine dependence, unspecified, uncomplicated; Z88.1 Allergy status to other antibiotic agents; Z88.6 Allergy status to analgesic agent
CPT/HCPCS: 99281

== ENCOUNTER 2018-02-16 09:16 | Emergency (ER) | payer SELFPAY ==
[~2018-02-16] VITALS: Ht 175.3 cm; Wt 58.5 kg
--- NOTE | 2018-02-16 10:11 | PHYS DOC ---
Past History Past Medical History: No Pertinent History Past Surgical History: Hysterectomy Smoking: Cigarettes, Greater than 1 pack/day Alcohol Use: Occasionally Drug Use: None Adult General Chief Complaint Chief Complaint: VAGINAL PROBLEM HPI HPI Patient is a 52-year-old female who presents complaining of painful lesion in vaginal area for about one week that did not get better with [id number] yeast medication. Patient denies fever and chills, sexual activity for the last 1 month, vaginal bleeding, history of genital herpes, fever and chills, abdominal pain. She diagnosed with esophageal candidiasis and a course of antibiotics 1 month ago and re-started on medication 2 days ago again. Review of Systems Review of Systems Constitutional: Denies fever or chills [] Eyes: Denies change in visual acuity, redness, or eye pain [] HENT: Denies nasal congestion or sore throat [] Respiratory: Denies cough or shortness of breath [] Cardiovascular: No additional information not addressed in HPI [] GI: Denies abdominal pain, nausea, vomiting, bloody stools or diarrhea [] : Reports dysuria Musculoskeletal: Denies back pain or joint pain [] Integument: Denies rash or skin lesions [] Neurologic: Denies headache, focal weakness or sensory changes [] Endocrine: Denies polyuria or polydipsia [] All other systems were reviewed and found to be within normal limits, except as documented in this note. Allergies Allergies Allergies Coded Allergies Type Severity Reaction Last Updated Verified amoxicillin Allergy Intermediate Rash 10/01/17 Yes aspirin Allergy Intermediate gi 10/01/17 No tetracycline Allergy Intermediate gi 10/01/17 No NSAIDS (Non-Steroidal Anti-Inflamma Adverse Reaction Intermediate Nausea and Vomiting 10/01/17 Yes Physical Exam Physical Exam mildno acute distress, non-toxic appearance. [] HENT: Normocephalic, atraumatic Eyes: PERRLA, EOMI, conjunctiva normal, no discharge. [] Neck: Normal range of motion, no tenderness, supple, no stridor. [] Cardiovascular:Heart rate regular rhythm, no murmur [] Lungs & Thorax: Bilateral breath sounds clear to auscultation [] Abdomen: Bowel sounds normal, soft, no tenderness, no masses, no pulsatile masses. Genital exam with present of flotation operator showed edema of right labia majora with inflamed ulcers in mucosal side of labia with tenderness does sign of abscess/like herpes lesion Skin: Warm, dry, no erythema, no rash. [] Back: No tenderness, no CVA tenderness. [] Extremities: No tenderness, no cyanosis, no clubbing, ROM intact, no edema. [] Neurologic: Alert and oriented X 3, normal motor function, normal sensory function, no focal deficits noted. [] Psychologic: Affect normal, judgement normal, mood normal. [] Current Patient Data Vital Signs Vital Signs Date Time Temp Pulse Resp B/P (MAP) Pulse Ox O2 Delivery O2 Flow Rate FiO2 02/16/18 09:22 98.4 94 18 97 Room Air EKG EKG [] Radiology/Procedures Radiology/Procedures [] Course & Med Decision Making Course & Med Decision Making Pertinent Labs reviewed. (See chart for details) Evaluation of patient in ER showed 52-year-old female patient complaining of painful for the patient in genital area for one week. She had a tender ulcer patient had area like herpes lesion without inguinal lymphadenopathy. Plan to give prescription of acyclovir and reading for the results of herpes test. She instructed to follow-up with her primary care physician regarding chronic leukopenia and frequent infection. Dragon Disclaimer Dragon Disclaimer This electronic medical record was generated, in whole or in part, using a voice recognition dictation system. Departure Departure: Impression: Primary Impression: Labial lesion Additional Impressions: Urinary tract infection Tobacco abuse Tobacco abuse counseling Disposition: HOME, SELF-CARE (@1046) Condition: STABLE Referrals: PCP,NO (PCP) Patient Instructions: Genital Herpes, Urinary Tract Infection Additional Instructions: Follow-up with the primary care physician in 2-3 days Follow-up with [facility] [employer] [facility] in 3-5 days Drink plenty of liquids Return to ER if not getting better Scripts Hydrocodone Bit/Acetaminophen (NORCO 5-325 TABLET) 1 Each Tablet 1 TAB PO PRN Q6HRS PRN for PAIN, #14 TAB 0 Refills Prov: KAY ARMENDARIZ MD 02/16/18 Ciprofloxacin Hcl (CIPRO) 250 Mg Tablet 1 TAB PO BID, #6 TAB Prov: KAY ARMENDARIZ MD 02/16/18 Acyclovir (ACYCLOVIR) 200 Mg Capsule 1 CAP PO 5XDAY, #25 CAP Prov: KAY ARMENDARIZ MD 02/16/18 Problem Qualifiers KAY ARMENDARIZ MD Feb 16, 2018 10:11
[2018-02-16 10:14] LABS: BILIRUBIN,URINE NEG (NEG); CLARITY,URINE CLEAR; COLOR,URINE YELLOW; GLUCOSE,URINE NEG (NEG); NITRITE,URINE NEG (NEG); UROBILINOGEN,URINE 0.2 mg/dL (0.2 mg/dL)
[2018-02-16] MEDS ORDERED: CIPR250T30 PO (10:50)
[2018-02-16] MEDS ORDERED: ACYC-63 PO (10:50)
[2018-02-16] MEDS ORDERED: HYDR-971 PO (10:50)
[2018-02-16 10:55] VITALS: BP 98/63
[2018-02-17 15:08] LABS: CHLAMYDIA PROBE Negative (Negative)
[2018-02-18 16:08] LABS: HERPES SIMPLEX TYPE 1 Negative (Negative); HERPES SIMPLEX TYPE 2 Positive (Negative)
== END 2018-02-16 10:55 | disposition home or self-care (01) ==
LOC: ER 09:16
DX: N90.89 Other specified noninflammatory disorders of vulva and perineum (principal); N39.0 Urinary tract infection, site not specified; F17.210 Nicotine dependence, cigarettes, uncomplicated; Z71.6 Tobacco abuse counseling; Z90.710 Acquired absence of both cervix and uterus; Z88.1 Allergy status to other antibiotic agents; Z88.6 Allergy status to analgesic agent
CPT/HCPCS: 36415; 81003; 87086; 87491; 87529; 87591; 99284; Q0111

== ENCOUNTER 2018-08-31 11:30 | Emergency (ER) | payer SELFPAY ==
[~2018-08-31] VITALS: Ht 175.3 cm; Wt 67.1 kg
[~2018-08-31 11:30] MED LIST changes: +ACYC-63 PO; +CIPR250T30 PO; +HYDR-3165 PO; -HYDR-971 PO
[2018-08-31] MEDS ORDERED: IV NORMAL SALINE 1,000ML 1,000 ML IV SCH (12:00)
[2018-08-31] MEDS ORDERED: ONDANSETRON PF 4 MG/2 ML VIAL. IV ONE (12:00)
[2018-08-31 12:04] LABS: BASO # 0.1 x10^3/uL (0.0-0.2); BASO % 1 % (0-3); EOS # 0.1 x10^3/uL (0.0-0.7); EOS % 1 % (0-3); HEMATOCRIT 46.4 % (36.0-47.0); HEMOGLOBIN 15.9 g/dL (12.0-15.5); LYMPH # 1.9 x10^3/uL (1.0-4.8); LYMPH % 29 % (24-48); MEAN CORPUSCULAR HEMOGLOBIN 32 pg (25-35); MEAN CORPUSCULAR HGB CONC 34 g/dL (31-37); MEAN CORPUSCULAR VOLUME 93 fL (79-100); MONO # 0.3 x10^3/uL (0.0-1.1); MONO % 5 % (0-9); NEUT # 4.3 x10^3uL (1.8-7.7); NEUT % 65 % (31-73); PLATELET COUNT 221 x10^3/uL (140-400); RED BLOOD COUNT 4.98 x10^6/uL (3.50-5.40); RED CELL DISTRIBUTION WIDTH 14.1 % (11.5-14.5); WHITE BLOOD COUNT 6.6 x10^3/uL (4.0-11.0)
[2018-08-31 12:16] LABS: ALBUMIN 4.2 g/dL (3.4-5.0); ALBUMIN/GLOBULIN RATIO 0.9 (1.0-1.7); CALCIUM 10.7 mg/dL (8.5-10.1); GFR 57.6; POTASSIUM 3.9 mmol/L (3.5-5.1); TOTAL BILIRUBIN 0.5 mg/dL (0.2-1.0); TOTAL PROTEIN 9.1 g/dL (6.4-8.2)
--- NOTE | 2018-08-31 12:24 | PHYS DOC ---
Past History Past Medical History: HIV (and AIDS) Past Surgical History: Hysterectomy Smoking: Cigarettes, Greater than 1 pack/day Alcohol Use: Occasionally Drug Use: None Adult General Chief Complaint Chief Complaint: NAUSEA/VOMITING/[facility] HPI Patient is a 53 year old female who presents with complaining of nausea and vomiting and diarrhea for the last 3 days. Patient was diagnosed with HIV and AIDS 6 months ago and currently taking antiviral medication. Patient complaining of 2 episodes of vomiting and one episode of diarrhea a day for the last 2 days with generalized weakness. Patient states she had temperature of 101 yesterday. Patient complaining of intermittent episodes of cramping lower abdominal pain. Patient denies sick contact. Patient denies history of the same problem after taking antiviral medication. She denies urinary symptoms, sick contact, chest pain and shortness of breath. Review of Systems Review of Systems Constitutional: Reports fever and generalized weakness Eyes: Denies change in visual acuity, redness, or eye pain [] HENT: Denies nasal congestion or sore throat [] Respiratory: Denies cough or shortness of breath [] Cardiovascular: No additional information not addressed in HPI [] GI: Reports abdominal pain, nausea, vomiting, diarrhea [] : Denies dysuria or hematuria [] Musculoskeletal: Denies back pain or joint pain [] Integument: Denies rash or skin lesions [] Neurologic: Denies headache, focal weakness or sensory changes [] Endocrine: Denies polyuria or polydipsia [] All other systems were reviewed and found to be within normal limits, except as documented in this note. Current Medications Current Medications Current Medications Medications (Trade) Dose Ordered Sig/[facility] Start Time Stop Time Status Last Admin Dose Admin Ondansetron HCl (Zofran) 4 mg 1X ONCE 08/31/18 12:00 08/31/18 12:01 DC Sodium Chloride 1,000 ml @ 1,000 mls/hr Q1H 08/31/18 12:00 08/31/18 12:59 Allergies Allergies Allergies Coded Allergies Type Severity Reaction Last Updated Verified amoxicillin Allergy Intermediate Rash 10/01/17 Yes aspirin Allergy Intermediate gi 10/01/17 No tetracycline Allergy Intermediate gi 10/01/17 No NSAIDS (Non-Steroidal Anti-Inflamma Adverse Reaction Intermediate Nausea and Vomiting 10/01/17 Yes Physical Exam Physical Exam Constitutional: Well developed, well nourished, moderate acute distress, non- toxic appearance. [] HENT: Normocephalic, atraumatic, oropharynx moist, no oral exudates, nose normal. [] Eyes: PERRLA, EOMI, conjunctiva normal, no discharge. [] Neck: Normal range of motion, no tenderness, supple, no stridor. [] Cardiovascular:Heart rate regular rhythm, no murmur [] Lungs & Thorax: Bilateral breath sounds clear to auscultation [] Abdomen: Bowel sounds normal, soft, no tenderness, no masses, no pulsatile masses. [] Skin: Warm, dry, no erythema, no rash. [] Back: No tenderness, no CVA tenderness. [] Extremities: No tenderness, no cyanosis, no clubbing, ROM intact, no edema. [] Neurologic: Alert and oriented X 3, normal motor function, normal sensory function, no focal deficits noted. [] Psychologic: Affect anxious, judgement normal, mood normal. [] EKG EKG [] Radiology/Procedures Radiology/Procedures [] Course & Med Decision Making Course & Med Decision Making Pertinent Labs reviewed. (See chart for details) evaluation of patient in ER showed 53-year-old female patient with history of HIV and AIDS on antiviral treatment and complaining of few episode of nausea and vomiting and diarrhea for the last 2 days. Patient was anxious with a stable vital signs. Labs was unremarkable. Patient felt better after treatment in ER. Plan discharge patient home with diagnose of viral gastroenteritis and instruction to follow up with her infectious disease physician. Dragon Disclaimer Dragon Disclaimer This electronic medical record was generated, in whole or in part, using a voice recognition dictation system. Departure Departure: Impression: Primary Impression: Viral gastroenteritis Additional Impressions: AIDS Anxiety Tobacco abuse Tobacco abuse counseling Disposition: HOME, SELF-CARE (at 1319) Condition: IMPROVED Referrals: PCP,NO (PCP) Patient Instructions: Smoking Cessation, Tips For Success, Viral Gastroenteritis Additional Instructions: Drink plenty of liquids Follow-up with your primary care physician or infectious diseases specialist in 2-3 days Return to ER if not getting better Do not eat solid food today Scripts Ondansetron Hcl (ZOFRAN) 4 Mg Tablet 1 TAB PO Q6HRS for nausea and vomiting, #12 TAB Prov: KAY ARMENDARIZ MD 08/31/18 Problem Qualifiers KAY ARMENDARIZ MD Aug 31, 2018 12:24
[2018-08-31 12:48] LABS: COLOR,URINE STRAW
[2018-08-31 12:49] LABS: BACTERIA,URINE 0 /HPF (0-FEW); BILIRUBIN,URINE NEG (NEG); CLARITY,URINE CLEAR; GLUCOSE,URINE NEG (NEG); NITRITE,URINE NEG (NEG); RBC,URINE 0 /HPF (0-2); UROBILINOGEN,URINE 0.2 mg/dL (0.2 mg/dL); WBC,URINE 0 /HPF (0-4)
[2018-08-31 12:50] LABS: INFLUENZA A PATIENT NEGATIVE (NEGATIVE); INFLUENZA B PATIENT NEGATIVE (NEGATIVE)
[2018-08-31] MEDS ORDERED: ONDA4TAB7 PO (13:20)
[2018-08-31 13:30] VITALS: BP 136/76
--- NOTE | 2018-08-31 18:31 | EKG ---
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
== END 2018-08-31 13:33 | disposition home or self-care (01) ==
LOC: ER 11:30
DX: A08.4 Viral intestinal infection, unspecified (principal); F41.9 Anxiety disorder, unspecified; F17.210 Nicotine dependence, cigarettes, uncomplicated; Z90.710 Acquired absence of both cervix and uterus; Z71.6 Tobacco abuse counseling; Z88.6 Allergy status to analgesic agent; Z88.1 Allergy status to other antibiotic agents
CPT/HCPCS: 36415; 80053; 81001; 83605; 83690; 85025; 87040; 87804; 93005; 96361; 96374; 99284; J2405; J7030

== ENCOUNTER 2018-11-03 11:09 | Emergency (ER) | payer OTHER ==
[~2018-11-03] VITALS: Ht 175.3 cm; Wt 59.3 kg
[~2018-11-03 11:09] MED LIST changes: +ONDA4TAB7 PO
--- NOTE | 2018-11-03 11:52 | EKG ---
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
[2018-11-03 12:06] LABS: BASO % 1 % (0-3); EOS % 1 % (0-3); HEMATOCRIT 41.9 % (36.0-47.0); HEMOGLOBIN 14.5 g/dL (12.0-15.5); LYMPH % 14 % (24-48); MEAN CORPUSCULAR HEMOGLOBIN 33 pg (25-35); MEAN CORPUSCULAR HGB CONC 35 g/dL (31-37); MEAN CORPUSCULAR VOLUME 95 fL (79-100); MONO # 0.3 x10^3/uL (0.0-1.1); MONO % 4 % (0-9); NEUT # 5.7 x10^3uL (1.8-7.7); NEUT % 81 % (31-73); PLATELET COUNT 221 x10^3/uL (140-400); RED BLOOD COUNT 4.42 x10^6/uL (3.50-5.40); RED CELL DISTRIBUTION WIDTH 13.7 % (11.5-14.5); WHITE BLOOD COUNT 7.1 x10^3/uL (4.0-11.0)
[2018-11-03 12:24] LABS: ALBUMIN 3.7 g/dL (3.4-5.0); ALBUMIN/GLOBULIN RATIO 0.8 (1.0-1.7); CALCIUM 9.6 mg/dL (8.5-10.1); GFR 57.6; POTASSIUM 4.2 mmol/L (3.5-5.1); TOTAL BILIRUBIN 0.7 mg/dL (0.2-1.0); TOTAL PROTEIN 8.1 g/dL (6.4-8.2)
--- NOTE | 2018-11-03 12:28 | RAD ---
Chest, 2 views, 11/03/2018: HISTORY: Shortness of breath Comparison is made to a study from 08/15/2017. The heart size is normal. The lungs are clear. There is no evidence of pleural fluid. IMPRESSION: No acute cardiopulmonary abnormality is detected. Electronically signed by: Juan Braswell MD (11/03/2018 12:25 PM) [facility]
--- NOTE | 2018-11-03 12:37 | PHYS DOC ---
Past History Past Medical History: HIV Past Surgical History: , Hysterectomy Smoking: Cigarettes, Greater than 1 pack/day Alcohol Use: Occasionally Drug Use: None Adult General Chief Complaint Chief Complaint: SHORTNESS OF BREATH HPI HPI Patient is a 53-year-old female who presents with complaint of cough and shortness of breath that she states is been present for the last 2 days. Patient states that she has been having a little bit of shortness of breath with exertion. She denies any orthopnea. She denies any chest pain or fever. She does admit to some chills however. Patient states that symptoms are worsened with exertion and improved by nothing. Review of Systems Review of Systems Constitutional: Positive chills [] Respiratory: Positive cough and shortness of breath [] Cardiovascular: No additional information not addressed in HPI [] GI: Denies abdominal pain, nausea, vomiting or diarrhea [] Integument: Denies rash or skin lesions [] Neurologic: Denies headache, focal weakness or sensory changes [] All other systems were reviewed and found to be within normal limits, except as documented in this note. Allergies Allergies Allergies Coded Allergies Type Severity Reaction Last Updated Verified amoxicillin Allergy Intermediate Rash 10/01/17 Yes aspirin Allergy Intermediate gi 10/01/17 No tetracycline Allergy Intermediate gi 10/01/17 No NSAIDS (Non-Steroidal Anti-Inflamma Adverse Reaction Intermediate Nausea and Vomiting 10/01/17 Yes Physical Exam Physical Exam Constitutional: Well developed, well nourished, no acute distress, non-toxic appearance. [] HENT: Normocephalic, atraumatic, bilateral external ears normal, oropharynx m oist, no oral exudates, nose normal. [] Eyes: PERRLA, EOMI, conjunctiva normal, no discharge. [] Neck: Normal range of motion, no tenderness, supple, no stridor. [] Cardiovascular:Heart rate regular rhythm, no murmur [] Lungs & Thorax: Bilateral breath sounds clear to auscultation [] Abdomen: Bowel sounds normal, soft, no tenderness. [] Skin: Warm, dry, no erythema, no rash. [] Extremities: No tenderness, no cyanosis, no clubbing, ROM intact, no edema. [] Neurologic: Alert and oriented X 3, no focal deficits noted. [] Current Patient Data Vital Signs Vital Signs Date Time Temp Pulse Resp B/P (MAP) Pulse Ox O2 Delivery O2 Flow Rate FiO2 11/03/18 12:18 67 25 139/64 (89) 99 Room Air 11/03/18 11:16 98.0 Lab Results Laboratory Tests Test 11/03/18 11:54 White Blood Count 7.1 x10^3/uL (4.0-11.0) Red Blood Count 4.42 x10^6/uL (3.50-5.40) Hemoglobin 14.5 g/dL (12.0-15.5) Hematocrit 41.9 % (36.0-47.0) Mean Corpuscular Volume 95 fL (79-100) Mean Corpuscular Hemoglobin 33 pg (25-35) Mean Corpuscular Hemoglobin Concent 35 g/dL (31-37) Red Cell Distribution Width 13.7 % (11.5-14.5) Platelet Count 221 x10^3/uL (140-400) Neutrophils (%) (Auto) 81 % (31-73) H Lymphocytes (%) (Auto) 14 % (24-48) L Monocytes (%) (Auto) 4 % (0-9) Eosinophils (%) (Auto) 1 % (0-3) Basophils (%) (Auto) 1 % (0-3) Neutrophils # (Auto) 5.7 x10^3uL (1.8-7.7) Lymphocytes # (Auto) 1.0 x10^3/uL (1.0-4.8) Monocytes # (Auto) 0.3 x10^3/uL (0.0-1.1) Eosinophils # (Auto) 0.0 x10^3/uL (0.0-0.7) Basophils # (Auto) 0.0 x10^3/uL (0.0-0.2) D-Dimer (Brigitte) 0.43 mg/L (0.00-0.50) Sodium Level 140 mmol/L (136-145) Potassium Level 4.2 mmol/L (3.5-5.1) Chloride Level 103 mmol/L (98-107) Carbon Dioxide Level 29 mmol/L (21-32) Anion Gap 8 (6-14) Blood Urea Nitrogen 13 mg/dL (7-20) Creatinine 1.0 mg/dL (0.6-1.0) Estimated GFR (Cockcroft-Gault) 57.6 BUN/Creatinine Ratio 13 (6-20) Glucose Level 109 mg/dL (70-99) H Calcium Level 9.6 mg/dL (8.5-10.1) Total Bilirubin 0.7 mg/dL (0.2-1.0) Aspartate Amino Transferase (AST) 18 U/L (15-37) Alanine Aminotransferase (ALT) 20 U/L (14-59) Alkaline Phosphatase 117 U/L (46-116) H Troponin I Quantitative < 0.017 ng/mL (0-0.055) RH-Kxf-R-Type Natriuretic Peptide 305 pg/mL (0-124) H Total Protein 8.1 g/dL (6.4-8.2) Albumin 3.7 g/dL (3.4-5.0) Albumin/Globulin Ratio 0.8 (1.0-1.7) L EKG EKG EKG demonstrates normal sinus rhythm with rate of 66.[] Radiology/Procedures Radiology/Procedures [] Impressions: PROCEDURE: CHEST PA & LATERAL Chest, 2 views, 11/03/2018: HISTORY: Shortness of breath Comparison is made to a study from 08/15/2017. The heart size is normal. The lungs are clear. There is no evidence of pleural fluid. IMPRESSION: No acute cardiopulmonary abnormality is detected. Electronically signed by: Juan Braswell MD (11/03/2018 12:25 PM) [facility] Course & Med Decision Making Course & Med Decision Making Pertinent Labs and Imaging studies reviewed. (See chart for details) [] Dragon Disclaimer Dragon Disclaimer This electronic medical record was generated, in whole or in part, using a voice recognition dictation system. Departure Departure: Impression: Primary Impression: Upper respiratory infection Disposition: HOME, SELF-CARE Condition: STABLE Referrals: PCP,NO (PCP) Patient Instructions: Upper Respiratory Infection, Adult Scripts Azithromycin (ZITHROMAX) 250 Mg Tablet 1 PKG PO UD for infection, #6 TAB Prov: RAGHU DEE Jr. DO 11/03/18 Problem Qualifiers Primary Impression: Upper respiratory infection URI type: unspecified URI Qualified Codes: J06.9 - Acute upper respiratory infection, unspecified RAGHU DEE Jr. DO November 03, 2018 12:37
[2018-11-03] MEDS ORDERED: AZIT250T PO (12:59)
[2018-11-03 13:06] VITALS: BP 130/71
== END 2018-11-03 13:06 | disposition home or self-care (01) ==
LOC: ER 11:09
DX: J06.9 Acute upper respiratory infection, unspecified (principal); F17.210 Nicotine dependence, cigarettes, uncomplicated; Z88.1 Allergy status to other antibiotic agents; Z88.6 Allergy status to analgesic agent
CPT/HCPCS: 36415; 71046; 80053; 83880; 84484; 85025; 85379; 93005; 99285

== ENCOUNTER 2018-11-08 10:31 | Emergency (ER) | payer OTHER ==
[~2018-11-08] VITALS: Ht 175.3 cm; Wt 68.5 kg
[~2018-11-08 10:31] MED LIST changes: +AZIT250T PO
--- NOTE | 2018-11-08 11:18 | PHYS DOC ---
Past History Past Medical History: HIV Past Surgical History: , Hysterectomy Smoking: Cigarettes, Greater than 1 pack/day Alcohol Use: Occasionally Drug Use: None Adult General Chief Complaint Chief Complaint: BACK PAIN OR INJURY [facility] HPI 53-year-old female presents with right sided thoracic back pain. This started yesterday out of the blue. The patient was seen in this facility recently and was treated with azithromycin for respiratory infection. She tells me that the patient started at rest. It is worse with deep breathing. She states it feels similar to when she had pneumonia in the past. She denies shortness of breath or chest pain. She has had an intermittent cough. It is also painful to twist her torso. She denies any recent trauma or falls. She tells me she is HIV positive. Review of Systems Review of Systems Constitutional: Denies fever or chills [] Eyes: Denies change in visual acuity, redness, or eye pain [] HENT: Denies nasal congestion or sore throat [] Respiratory: Cough without shortness of breath [] Cardiovascular: No additional information not addressed in HPI [] GI: Denies abdominal pain, nausea, vomiting, bloody stools or diarrhea [] : Denies dysuria or hematuria [] Musculoskeletal: Thoracic back pain[] Integument: Denies rash or skin lesions [] Neurologic: Denies headache, focal weakness or sensory changes [] Endocrine: Denies polyuria or polydipsia [] All other systems were reviewed and found to be within normal limits, except as documented in this note. Allergies Allergies Allergies Coded Allergies Type Severity Reaction Last Updated Verified amoxicillin Allergy Intermediate Rash 10/01/17 Yes aspirin Allergy Intermediate gi 10/01/17 No tetracycline Allergy Intermediate gi 10/01/17 No NSAIDS (Non-Steroidal Anti-Inflamma Adverse Reaction Intermediate Nausea and Vomiting 10/01/17 Yes Physical Exam Physical Exam Constitutional: Well developed, well nourished, no acute distress, non-toxic appearance. [] HENT: Normocephalic, atraumatic, bilateral external ears normal, oropharynx moist, no oral exudates, nose normal. [] Eyes: PERRLA, EOMI, conjunctiva normal, no discharge. [] Neck: Normal range of motion, no tenderness, supple, no stridor. [] Cardiovascular:Heart rate regular rhythm, no murmur [] Lungs & Thorax: Bilateral breath sounds clear to auscultation [] Abdomen: Bowel sounds normal, soft, no tenderness, no masses, no pulsatile masses. [] Skin: Warm, dry, no erythema, no rash. [] Back: Right-sided thoracic tenderness T7-9[] Extremities: No tenderness, no cyanosis, no clubbing, ROM intact, no edema. [] Neurologic: Alert and oriented X 3, normal motor function, normal sensory function, no focal deficits noted. [] Psychologic: Affect normal, judgement normal, mood anxious. [] EKG EKG [] Radiology/Procedures Radiology/Procedures [] Impressions: Chest, 2 views, 11/08/2018: HISTORY: Chest pain Comparison is made to a study from 11/03/2018. The heart size is normal. The lungs are clear. There is no evidence of pleural fluid. IMPRESSION: No acute cardiopulmonary abnormality is detected. Electronically signed by: Juan Braswell MD (11/08/2018 11:38 AM) [facility] DICTATED AND SIGNED BY: JUAN BRASWELL MD DATE: 11/08/18 1138 Course & Med Decision Making Course & Med Decision Making Pertinent Labs and Imaging studies reviewed. (See chart for details) Patient's labs are unremarkable. Her EKG is unremarkable. Her troponin is negative. Her chest x-rays unremarkable. I do not believe this is cardiopulmonary in origin. This is likely musculoskeletal. The patient can take ibuprofen and Tylenol for pain. She is stable for discharge at this time. She will follow up with PCP as needed. [] Dragon Disclaimer Dragon Disclaimer This electronic medical record was generated, in whole or in part, using a voice recognition dictation system. Departure Departure: Impression: Primary Impression: Thoracic myofascial strain Disposition: HOME, SELF-CARE Condition: STABLE Referrals: PCP,NO (PCP) Patient Instructions: Thoracic Strain Problem Qualifiers Primary Impression: Thoracic myofascial strain Encounter type: initial encounter Qualified Codes: S29.019A - Strain of muscle and tendon of unspecified wall of thorax, initial encounter ALEXI VOSS DO November 08, 2018 11:18
--- NOTE | 2018-11-08 11:41 | RAD ---
Chest, 2 views, 11/08/2018: HISTORY: Chest pain Comparison is made to a study from 11/03/2018. The heart size is normal. The lungs are clear. There is no evidence of pleural fluid. IMPRESSION: No acute cardiopulmonary abnormality is detected. Electronically signed by: Juan Braswell MD (11/08/2018 11:38 AM) [facility]
[2018-11-08 11:51] LABS: BASO % 1 % (0-3); EOS # 0.1 x10^3/uL (0.0-0.7); EOS % 2 % (0-3); HEMATOCRIT 41.2 % (36.0-47.0); LYMPH # 1.5 x10^3/uL (1.0-4.8); LYMPH % 30 % (24-48); MEAN CORPUSCULAR HEMOGLOBIN 32 pg (25-35); MEAN CORPUSCULAR HGB CONC 34 g/dL (31-37); MEAN CORPUSCULAR VOLUME 95 fL (79-100); MONO # 0.3 x10^3/uL (0.0-1.1); MONO % 6 % (0-9); NEUT # 3.1 x10^3uL (1.8-7.7); NEUT % 62 % (31-73); PLATELET COUNT 247 x10^3/uL (140-400); RED BLOOD COUNT 4.35 x10^6/uL (3.50-5.40); RED CELL DISTRIBUTION WIDTH 13.8 % (11.5-14.5)
[2018-11-08 12:03] LABS: ALBUMIN 3.8 g/dL (3.4-5.0); ALBUMIN/GLOBULIN RATIO 0.9 (1.0-1.7); CALCIUM 9.9 mg/dL (8.5-10.1); CREATININE 0.9 mg/dL (0.6-1.0); POTASSIUM 4.1 mmol/L (3.5-5.1); TOTAL BILIRUBIN 0.6 mg/dL (0.2-1.0); TOTAL PROTEIN 8.1 g/dL (6.4-8.2)
[2018-11-08 12:48] VITALS: BP 128/79
--- NOTE | 2018-11-08 14:00 | EKG ---
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
== END 2018-11-08 13:00 | disposition home or self-care (01) ==
LOC: ER 10:31
DX: S29.012A Strain of muscle and tendon of back wall of thorax, initial encounter (principal); R07.9 Chest pain, unspecified; F17.210 Nicotine dependence, cigarettes, uncomplicated; Z98.890 Other specified postprocedural states; Z90.710 Acquired absence of both cervix and uterus; Z88.1 Allergy status to other antibiotic agents; Z88.6 Allergy status to analgesic agent; X58.XXXA Exposure to other specified factors, initial encounter; Y93.89 Activity, other specified; Y92.89 Other specified places as the place of occurrence of the external cause; Y99.8 Other external cause status
CPT/HCPCS: 36415; 71046; 80053; 84484; 85025; 93005; 99285

== ENCOUNTER 2020-02-01 18:16 | Emergency (ER) | payer OTHER ==
[~2020-02-01] VITALS: Ht 175.3 cm; Wt 68.0 kg
[~2020-02-01 18:16] MED LIST changes: +MULT-445 PO; -MULT1TAB52 PO; +RANI-376 PO; -RANI150T21 PO
[2020-02-01] MEDS: cloNIDine HCL 0.1 MG TABLET PO ONE (19:00)
[2020-02-01] MEDS: IV NORMAL SALINE 1,000ML 1,000 ML IV ONE (19:26)
--- NOTE | 2020-02-01 19:35 | RAD ---
Exam: Chest 2 views INDICATION: Chest pain TECHNIQUE: Frontal and lateral views of the chest Comparisons: 11/08/2018 FINDINGS: The cardiomediastinal silhouette and pulmonary vessels are within normal limits. The lung and pleural spaces are clear. IMPRESSION: No acute cardiopulmonary process. Electronically signed by: Albert Arguelles MD (02/01/2020 7:32 PM) [id number]
[2020-02-01 19:50] LABS: BASO % 1 % (0-3); EOS # 0.1 x10^3/uL (0.0-0.7); EOS % 1 % (0-3); HEMOGLOBIN 14.3 g/dL (12.0-15.5); LYMPH # 2.2 x10^3/uL (1.0-4.8); LYMPH % 31 % (24-48); MEAN CORPUSCULAR HEMOGLOBIN 33 pg (25-35); MEAN CORPUSCULAR HGB CONC 34 g/dL (31-37); MEAN CORPUSCULAR VOLUME 97 fL (79-100); MONO # 0.5 x10^3/uL (0.0-1.1); MONO % 7 % (0-9); NEUT # 4.3 x10^3uL (1.8-7.7); NEUT % 61 % (31-73); PLATELET COUNT 234 x10^3/uL (140-400); RED BLOOD COUNT 4.31 x10^6/uL (3.50-5.40); RED CELL DISTRIBUTION WIDTH 12.7 % (11.5-14.5); WHITE BLOOD COUNT 7.1 x10^3/uL (4.0-11.0)
[2020-02-01 19:56] LABS: CALCIUM 9.5 mg/dL (8.5-10.1); GFR 57.4
--- NOTE | 2020-02-01 20:06 | PHYS DOC ---
Past History Past Medical History: COPD, HIV Past Surgical History: Other Additional Past Surgical Histo: per pt- plates and screws to right leg, currently in boot Smoking: Cigarettes, Greater than 1 pack/day Alcohol Use: Occasionally Drug Use: None Adult General Chief Complaint Chief Complaint: CHEST PAIN HPI HPI Patient is a 54 year old female who presents with multiple complaints. Patient states that since yesterday she has been having diarrhea, chills, severe nausea, and tearfulness. She quit taking her opiates cold turkey the night before all of this started. She has been on opiates every 4 hours for the last 6 months. Did not have any weaning off of her opiates. She then had an episode where she felt short of breath and developed chest pain. This is resolved now but during the time she had a large sense of doom. She states the chest pain felt like pressure and squeezing. Review of Systems Review of Systems General: Denies fever, chills, fatigue reports sweats Eyes: Denies drainage, blurred vision, eye redness HENT: Denies rhinorrhea, sore throat, earache Respiratory: Denies cough, shortness of breath, wheezing Cardiac: Denies edema, palpitations. Reports chest pain GI: Reports abdominal cramping, nausea, diarrhea MSK: Denies back pain, neck pain Skin: Denies rash, jaundice Neuro: Denies headache, dizziness Psychiatric: Denies SI/HI Current Medications Current Medications Current Medications Medications (Trade) Dose Ordered Sig/Fantasma Start Time Stop Time Status Last Admin Dose Admin Clonidine HCl (Catapres) 0.1 mg 1X ONCE 02/01/20 19:00 02/01/20 19:01 DC Ondansetron HCl (Zofran) 4 mg 1X ONCE 02/01/20 19:00 02/01/20 19:01 DC Sodium Chloride 1,000 ml @ 1,000 mls/hr 1X ONCE 02/01/20 19:00 02/01/20 19:59 DC 02/01/20 19:26 1,000 MLS/HR Allergies Allergies Allergies Coded Allergies Type Severity Reaction Last Updated Verified amoxicillin Allergy Intermediate Rash 10/01/17 Yes aspirin Allergy Intermediate gi 10/01/17 No tetracycline Allergy Intermediate gi 10/01/17 No NSAIDS (Non-Steroidal Anti-Inflamma Adverse Reaction Intermediate Nausea and Vomiting 10/01/17 Yes Physical Exam Physical Exam General: Awake, alert, NAD. Well Nourished, well hydrated. Cooperative HEENT: Atraumatic, EOMI, PERRL, airway patent, moist oral mucosa Neck: Supple, trachea midline Respiratory: CTA bilaterally, normal effort, no wheezing/crackles CV: RRR, no murmur, cap refill <2 GI: Soft, nondistended, nontender, no masses MSK: No obvious deformities Skin: Warm, dry, intact Neuro: A&O x3, speech NL, sensory and motor grossly intact, no focal deficits Psych: Normal affect, normal mood, not suicidal or homicidal Current Patient Data Vital Signs Vital Signs Date Time Temp Pulse Resp B/P (MAP) Pulse Ox O2 Delivery O2 Flow Rate FiO2 02/01/20 18:37 98.7 84 18 115/77 (90) 96 Room Air Lab Results Laboratory Tests Test 02/01/20 19:25 White Blood Count 7.1 x10^3/uL (4.0-11.0) Red Blood Count 4.31 x10^6/uL (3.50-5.40) Hemoglobin 14.3 g/dL (12.0-15.5) Hematocrit 42.0 % (36.0-47.0) Mean Corpuscular Volume 97 fL (79-100) Mean Corpuscular Hemoglobin 33 pg (25-35) Mean Corpuscular Hemoglobin Concent 34 g/dL (31-37) Red Cell Distribution Width 12.7 % (11.5-14.5) Platelet Count 234 x10^3/uL (140-400) Neutrophils (%) (Auto) 61 % (31-73) Lymphocytes (%) (Auto) 31 % (24-48) Monocytes (%) (Auto) 7 % (0-9) Eosinophils (%) (Auto) 1 % (0-3) Basophils (%) (Auto) 1 % (0-3) Neutrophils # (Auto) 4.3 x10^3uL (1.8-7.7) Lymphocytes # (Auto) 2.2 x10^3/uL (1.0-4.8) Monocytes # (Auto) 0.5 x10^3/uL (0.0-1.1) Eosinophils # (Auto) 0.1 x10^3/uL (0.0-0.7) Basophils # (Auto) 0.0 x10^3/uL (0.0-0.2) Sodium Level 141 mmol/L (136-145) Potassium Level 4.0 mmol/L (3.5-5.1) Chloride Level 103 mmol/L (98-107) Carbon Dioxide Level 27 mmol/L (21-32) Anion Gap 11 (6-14) Blood Urea Nitrogen 20 mg/dL (7-20) Creatinine 1.0 mg/dL (0.6-1.0) Estimated GFR (Cockcroft-Gault) 57.4 Glucose Level 92 mg/dL (70-99) Calcium Level 9.5 mg/dL (8.5-10.1) TP-Beh-L-Type Natriuretic Peptide Pending EKG EKG [] Radiology/Procedures Radiology/Procedures [] Course & Med Decision Making Course & Med Decision Making Pertinent Labs and Imaging studies reviewed. (See chart for details) Patient is 54-year-old female who presents the emergency room with multiple complaints. Patient diarrhea, abdominal pain, anxiety, nausea is likely related to opiate withdrawal as she went from taking a large amount of opiates every day to not taking any suddenly. The episode she describes at home sounds similar to a panic attack as she got sudden onset shortness of breath, doom, chest squeezing and tightness. The symptoms have fully resolved at this time. She is continuing to have some abdominal cramping and nausea. Patient given fluids and nausea medication. Basic labs will be checked. EKG is normal does not show any signs of STEMI. Troponin was ordered. Patient does not have any symptoms or signs concerning for a d-dimer. She is not hypoxic or tachycardic. This is unlikely to be cardiac in nature. Patient's heart score is 2 placing her at low risk. Delta troponin was done was negative. This is likely related to withdrawal and anxiety. I have discussed with her that she should call her primary care doctor tomorrow to discuss how she should wean off of her opiates. Patient's test results and vitals while in the ED were fully reviewed and discussed with the patient. Patient is stable and at this time does not need ad mission to the hospital. We have discussed strict return precautions and the importance of following up with their Primary Care Physician. Patient stated understanding and was given an opportunity to ask any questions. Patient is in agreement with plan. Dragon Disclaimer Dragon Disclaimer This electronic medical record was generated, in whole or in part, using a voice recognition dictation system. Departure Departure: Impression: Primary Impression: Opiate withdrawal Additional Impression: Chest pain Disposition: 01 HOME/RESIDENCE PRIOR TO ADM Condition: STABLE Referrals: NON,STAFF (PCP) Justification of Admission: Justification of Admission: Justification of Admission Dx: Yes Problem Qualifiers BRYON BAHENA MD Feb 01, 2020 20:06
[2020-02-01] MEDS: ACETAMINOPHEN 500 MG TABLET PO ONE (20:56)
[2020-02-01] MEDS: ONDANSETRON PF 4 MG/2 ML VIAL. IVP ONE (20:56)
[2020-02-01 23:29] VITALS: BP 115/68
--- NOTE | 2020-02-02 03:22 | EKG ---
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
== END 2020-02-01 23:30 | disposition home or self-care (01) ==
LOC: ER 18:16
DX: F11.23 Opioid dependence with withdrawal (principal); R07.89 Other chest pain; R19.7 Diarrhea, unspecified; J44.9 Chronic obstructive pulmonary disease, unspecified; F17.210 Nicotine dependence, cigarettes, uncomplicated; Z88.1 Allergy status to other antibiotic agents; Z88.6 Allergy status to analgesic agent
CPT/HCPCS: 36415; 71046; 80048; 83880; 84484; 85025; 93005; 96361; 96374; 99285; J2405; J7030

== ENCOUNTER 2020-03-27 09:22 | Emergency (ER) | payer OTHER ==
[~2020-03-27] VITALS: Ht 175.3 cm; Wt 68.0 kg
[2020-03-27] MEDS ORDERED: DEXAMETHASONE SOD PHOS 10 MG/ML VIAL. IV ONE (09:30)
[2020-03-27] MEDS ORDERED: ONDANSETRON PF 4 MG/2 ML VIAL. IVP ONE (09:45)
--- NOTE | 2020-03-27 09:49 | PHYS DOC ---
Past History Past Medical History: COPD, HIV Past Surgical History: Other Additional Past Surgical Histo: per pt- plates and screws to right leg, currently in boot Smoking: Cigarettes, Greater than 1 pack/day Alcohol Use: None Drug Use: None General Adult EDM: Chief Complaint: CHEST PAIN HPI: HPI: Patient is a 55-year-old female with a history of HIV and COPD who presents to the emergency room with chest heaviness that started 2 days ago. Patient states that she had a fever of 101F yesterday for which she took no Tylenol or ibuprofen but took [place]. Patient reports that she also has nausea with no vomiting, chills, cough with clear sputum production, and shortness of breath. She denies any known exposure to any person with COVID-19. Patient also states that she has noticed some clear vesicles and inside her left nostril with drainage that started yesterday. She denies any rhinitis or ear pain. Patient denies any lower extremity swelling/pain or pleuritic chest pain. Patient states that her viral load is currently undetectable and her CD4 count is 431. Denies recent travel but reports she had a surgery on her right ankle 2 months ago. Denies history of DVT or PE. Review of Systems: Review of Systems: Constitutional: Reports fever, chills, and dizziness Eyes: Denies redness or eye pain HENT: Reports nasal congestion and sore throat Respiratory: Reports cough and shortness of breath, denies chest pain with deep inspiration or hemoptysis Cardiovascular: Denies chest pain, reports chest "heaviness" and palpitations GI: Denies abdominal pain, or vomiting, reports nausea : Denies dysuria or hematuria Musculoskeletal: Denies back pain or joint pain, denies lower extremity pain or edema Integument: Denies rash or skin lesions Neurologic: Denies headache, focal weakness or sensory changes Complete systems were reviewed and found to be within normal limits, except as documented in this note. Heart Score: HEART Score for Chest Pain: HEART Score for Chest Pain Response (Comments) Value History Slighlty/Non-Suspicious 0 ECG Normal 0 Age >45 - < 65 1 Risk Factors 1 or 2 Risk Factors 1 Troponin < Normal Limit 0 Total 2 Family History: Family History: No pertinent family history. Current Medications: Current Meds: Current Medications Medications (Trade) Dose Ordered Sig/Fantasma Start Time Stop Time Status Last Admin Dose Admin Dexamethasone Sodium Phosphate (Decadron) 10 mg 1X ONCE 03/27/20 09:30 03/27/20 09:40 DC 03/27/20 09:45 10 MG Ondansetron HCl (Zofran) 4 mg 1X ONCE 03/27/20 09:45 03/27/20 09:46 UNV Allergies: Allergies: Allergies Coded Allergies Type Severity Reaction Last Updated Verified amoxicillin Allergy Intermediate Rash 10/01/17 Yes aspirin Allergy Intermediate gi 10/01/17 No tetracycline Allergy Intermediate gi 10/01/17 No NSAIDS (Non-Steroidal Anti-Inflamma Adverse Reaction Intermediate Nausea and Vomiting 10/01/17 Yes Physical Exam: PE: Constitutional: Well developed, well nourished, no acute distress, non-toxic appearance HENT: Normocephalic, atraumatic, left intranasal clear vesicles with drainage with granulation tissue crusting Eyes: PERRL, EOMI, conjunctiva normal, no discharge Neck: Normal range of motion, no tenderness, supple Lungs & Thorax: No respiratory distress, equal chest rise and fall, clear to auscultation bilaterally Heart: Regular rate and rhythm with no murmurs Abdomen: Soft, no tenderness Skin: Warm, dry, no erythema, no rash Back: No tenderness, no CVA tenderness Extremities: No tenderness, ROM intact, no edema, cm-wrap over right ankle Neurologic: Alert and oriented X 3, normal motor function, normal sensory function, no focal deficits noted Psychologic: Affect normal, judgment normal Current Patient Data: Vital Signs: Vital Signs Date Time Temp Pulse Resp B/P (MAP) Pulse Ox O2 Delivery O2 Flow Rate FiO2 03/27/20 09:29 98.0 68 16 134/72 (92) 97 Room Air EKG: EKG: EKG at 0931 is normal sinus rhythm with a heart rate of 61, QRS 78, QTc 373, and no ST elevations. Radiology/Procedures: Radiology/Procedures: PROCEDURE: CHEST AP ONLY CHEST AP ONLY 03/27/2020 9:20 AM INDICATION: Chest pain COMPARISON: 02/01/2020 TECHNIQUE: Portable frontal view of the chest is provided. FINDINGS: The cardiomediastinal silhouette is within normal limits. Lungs are clear. There are no significant pleural effusions. There is no pulmonary vascular congestion. No pneumothorax. No suspicious osseous abnormality. IMPRESSION: There is no acute cardiopulmonary process. Electronically signed by: Mervat Higgins MD (03/27/2020 10:11 AM) [id number] PROCEDURE: CT ANGIOGRAPHY CHEST Chest CTA History: Chest pain, elevated d-dimer Technique: After bolus of intravenous contrast, CT imaging was performed of the chest. Multiplanar reconstruction images to include MIP reconstruction images are submitted. Exposure: One or more of the following individualized dose reduction techniques were utilized for this examination: 1. Automated exposure control 2. Adjustment of the mA and/or kV according to patient size 3. Use of iterative reconstruction technique. Comparison: None Findings: No pulmonary embolism is identified. Thoracic aortic caliber is within normal limits. No significant chest lymphadenopathy is identified. There is no pleural or pericardial fluid, pneumothorax, or infiltrate. Impression: 1. There is no evidence of pulmonary embolic disease. Electronically signed by: Yusuf Kinney MD (03/27/2020 12:33 PM) [id number] Course & Med Decision Making: Course & Med Decision Making Pertinent Labs and Imaging studies reviewed. (See chart for details) Patient is a 55-year-old female who presents to the emergency room with chest heaviness that started 2 days ago. Strep tested negative. Labs were within normal limits. Chest x-ray revealed no acute cardiopulmonary process. Patient had no fevers during her stay here and her symptoms were appropriately addressed with medications. Due to her recent surgical history, D-dimer was ordered and came back positive at 0.74. CT angio chest without signs of acute PE. While COVID less likely, cannot fully exclude. COVID precautions in place. COVID testing pending. HEART score 2. At this time patient is stable for discharge. She will be sent home with a prescription for an empiric antibiotic ointment for the intranasal vesicles of unknown etiology. She will be sent home with a prescription for steroids. Prescriptions for antibiotics for her sinusitis were given with instructions to watch and wait. Return precautions were given. Patient stable for discharge with outpatient follow-up with PCP. Discussed findings and plan with patient, who acknowledges understanding and agreement. COVID-19 CRITERIA: The patient was evaluated during the global COVID-19 pandemic, and that diagnosis was suspected/considered upon their initial presentation. Their evaluation, treatment and testing was consistent with current guidelines for patients who present with complaints or symptoms that may be related to COVID-19. Dragon Disclaimer: Dragon Disclaimer: This electronic medical record was generated, in whole or in part, using a voice recognition dictation system. Departure Departure: Impression: Primary Impression: Atypical chest pain Additional Impressions: Internal nasal lesion Sinusitis Qualified Codes: J01.90 - Acute sinusitis, unspecified Suspected 2019 novel coronavirus infection Disposition: HOME/RESIDENCE PRIOR TO ADM Condition: STABLE Referrals: PCP,NO (PCP) JACOBO ROA MD Patient Instructions: Chest Pain (Nonspecific), [id number], Sinusitis, [id number] Additional Instructions: Hold antibiotics for 48 hours. If symptoms worsen or for fever > 100.3 F after 48 hours then start antibiotics as prescribed. You have been tested for or diagnosed with COVID-19. It is an infection caused by a new type of coronavirus. COVID-19 will cause cold-like or mild flu symptoms in most. It can cause more severe symptoms like problems breathing in some. There is no treatment for COVID-19. The body will clear the infection over time. Self-care will help to ease discomfort. Steps to Take: Self-Care Rest as needed. Healthy habits may help you feel better. Steps include: Choose healthy foods including fruits and vegetables. Drink water throughout the day. Get plenty of sleep each night. If you smoke, try to quit. It may ease breathing. Avoid alcohol. Keep Others Healthy The virus can spread to others. Droplets are released every time you sneeze or cough. The droplets can get into the mouth, nose, or eyes of people near you and lead to infection. To lower the chances of spreading COVID-19 to others: Stay at home until your doctor has said it is safe to leave. If you tested pos itive this will mean staying isolated until both of the following are true: At least 7 days have passed since the start of illness. You are free of fever for at least 72 hours without the use of medicine. During this time: - Avoid public areas, events, or transportation. Do not return to work or school until your doctor has said it is safe to do so. - Call ahead if you need to go to a medical center. Let them know you may have COVID-19. It will help them guide you where to go. They may also ask you to wear a facemask when you come to the office. - If you call for emergency medical services, let them know you may have COVID- 19. While at home: - Try to avoid close contact with others. Stay about 6 feet away. - If possible, spend most of your time in a separate room from others. - Use a face mask if you will be in close contact with others such as sharing a room or vehicle. - Have someone wipe down common surfaces in the home. Use household commercial construction superintendent every day on areas like doorknobs, counters, or sinks. - Cough or sneeze into a tissue. Throw the tissue away right after use. If a tissue is not available, cough or sneeze into your elbow. - Wash your hands often. Wash them after sneezing or coughing. Use soap and water and wash for at least 20 seconds. Alcohol based hand dry cleaner can be used if soap and water is not available. - Do not prepare food for others. Avoid sharing personal items like forks, spoons, or toothbrushes. - Avoid close contact with pets while you are sick. There is no evidence of the virus passing to pets. This is a safety step until more is known about this virus. Isolation can be frustrating. Social interaction can help. Keep in touch with friends and family through phone and tech options. You can still interact with others in your home, just keep a safe distance of about 6 feet. Follow-up: Your doctors office will check in with you to see if there are any changes in your health. You may be asked to keep track of symptoms to share with them. They will also let you know when you are clear to be in public again. Problems to Look Out For: Contact your doctor if your recovery is not going as you expect. Get emergency care if you have problems such as: - Trouble breathing - Nonstop chest pain or pressure - Changes in awareness, confusion, or problems waking - Lips or face have bluish color - Worsening of symptoms If you think you have an emergency, call for emergency medical services right away. As taken from [facility] Mupirocin (MUPIROCIN) 22 Gm Oint...g. 1 JAVIER TP TID for Nasal lesions for 7 Days, #15 GM Prov: LUKASZ FRANCISCO DO 03/27/20 Levofloxacin (LEVOFLOXACIN) 750 Mg Tablet 1 TAB PO DAILY for Sinusitis, #7 TAB Prov: LUKASZ FRANCISCO DO 03/27/20 Prednisone (PREDNISONE) 20 Mg Tablet 2 TAB PO DAILY for Sinusitis, #8 TAB Start this presription tomorrow, Thursday03/28/2020 Prov: LUKASZ FRANCISCO DO 03/27/20 Justification of Admission: Justification of Admission: Justification of Admission Dx: N/A COVID-19 Assessment COVID-19 Patient Risks: Age 65 or older: No Sign of co-morbidity: Yes Exp to person + for COVID: No Exp to PUI: No Travel from affected area: No Lower respiratory symptoms: Yes Fever: Yes PPE Use: Full PPE with N95 mask or PAPR: Yes LUKASZ FRANCISCO DO Mar 27, 2020 09:49
[2020-03-27 09:57] LABS: BASO % 1 % (0-3); EOS # 0.1 x10^3/uL (0.0-0.7); EOS % 2 % (0-3); HEMATOCRIT 41.1 % (36.0-47.0); LYMPH # 1.9 x10^3/uL (1.0-4.8); LYMPH % 31 % (24-48); MEAN CORPUSCULAR HEMOGLOBIN 33 pg (25-35); MEAN CORPUSCULAR HGB CONC 34 g/dL (31-37); MEAN CORPUSCULAR VOLUME 97 fL (79-100); MONO # 0.4 x10^3/uL (0.0-1.1); MONO % 7 % (0-9); NEUT # 3.6 x10^3uL (1.8-7.7); NEUT % 60 % (31-73); PLATELET COUNT 264 x10^3/uL (140-400); RED BLOOD COUNT 4.22 x10^6/uL (3.50-5.40); RED CELL DISTRIBUTION WIDTH 13.1 % (11.5-14.5); WHITE BLOOD COUNT 6.1 x10^3/uL (4.0-11.0)
[2020-03-27 10:08] LABS: ANION GAP 10 (6-14); BLOOD UREA NITROGEN 14 mg/dL (7-20); BUN/CREATININE RATIO 13 (6-20); CALCIUM 9.3 mg/dL (8.5-10.1); CARBON DIOXIDE 27 mmol/L (21-32); CHLORIDE 103 mmol/L (98-107); CREATININE 1.1 mg/dL (0.6-1.0); GFR 51.2; GLUCOSE 107 mg/dL (70-99); POTASSIUM 3.8 mmol/L (3.5-5.1); SODIUM 140 mmol/L (136-145)
--- NOTE | 2020-03-27 10:14 | RAD ---
CHEST AP ONLY 03/27/2020 9:20 AM INDICATION: Chest pain COMPARISON: 02/01/2020 TECHNIQUE: Portable frontal view of the chest is provided. FINDINGS: The cardiomediastinal silhouette is within normal limits. Lungs are clear. There are no significant pleural effusions. There is no pulmonary vascular congestion. No pneumothorax. No suspicious osseous abnormality. IMPRESSION: There is no acute cardiopulmonary process. Electronically signed by: Mervat Higgins MD (03/27/2020 10:11 AM) [id number]
[2020-03-27] MEDS ORDERED: MUPIROCIN 2% TOPICAL OINTMENT 22GM TUBE. TP ONE (10:15)
[2020-03-27 10:27] LABS: ALBUMIN 3.9 g/dL (3.4-5.0); ALBUMIN/GLOBULIN RATIO 0.9 (1.0-1.7); ALK PHOS 99 U/L (46-116); ALT (SGPT) 15 U/L (14-59); AST (SGOT) 14 U/L (15-37); LIPASE 91 U/L (73-393); MAGNESIUM 2.1 mg/dL (1.8-2.4); TOTAL BILIRUBIN 0.5 mg/dL (0.2-1.0); TOTAL PROTEIN 8.1 g/dL (6.4-8.2)
[2020-03-27] MEDS ORDERED: IV NORMAL SALINE 1,000ML 1,000 ML IV ONE (11:30)
[2020-03-27] MEDS ORDERED: IOHEXOL 350 MG/ML 100 ML VIAL. IV ONE (11:45)
--- NOTE | 2020-03-27 12:35 | RAD ---
Chest CTA History: Chest pain, elevated d-dimer Technique: After bolus of intravenous contrast, CT imaging was performed of the chest. Multiplanar reconstruction images to include MIP reconstruction images are submitted. Exposure: One or more of the following individualized dose reduction techniques were utilized for this examination: 1. Automated exposure control 2. Adjustment of the mA and/or kV according to patient size 3. Use of iterative reconstruction technique. Comparison: None Findings: No pulmonary embolism is identified. Thoracic aortic caliber is within normal limits. No significant chest lymphadenopathy is identified. There is no pleural or pericardial fluid, pneumothorax, or infiltrate. Impression: 1. There is no evidence of pulmonary embolic disease. Electronically signed by: Yusuf Kinney MD (03/27/2020 12:33 PM) [id number]
[2020-03-27] MEDS ORDERED: LEVO750T5 PO (13:10)
[2020-03-27] MEDS ORDERED: PRED20TA PO (13:10)
[2020-03-27] MEDS ORDERED: MUPI22OI2 TP (13:10)
[2020-03-27 13:20] VITALS: BP 130/64
--- NOTE | 2020-03-27 15:31 | EKG ---
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
--- NOTE | 2020-03-28 13:18 | NUR ---
IP: attempt to notify patient of COVID result, left message to call back.
--- NOTE | 2020-03-28 13:22 | NUR ---
IP: Patient notified of COVID result.
== END 2020-03-27 13:23 | disposition home or self-care (01) ==
LOC: ER 09:22
DX: R07.89 Other chest pain (principal); J01.90 Acute sinusitis, unspecified; J34.89 Other specified disorders of nose and nasal sinuses; Z20.828 Contact with and (suspected) exposure to other viral communicable diseases; J44.9 Chronic obstructive pulmonary disease, unspecified; F17.210 Nicotine dependence, cigarettes, uncomplicated; Z88.1 Allergy status to other antibiotic agents; Z88.6 Allergy status to analgesic agent
CPT/HCPCS: 36415; 71045; 71275; 80053; 82553; 83690; 83735; 84484; 85025; 85379; 85610; 85730; 87070; 87880; 93005; 96361; 96374; 96375; 99285; J1100; J2405; J7030; Q9967; U0003

== ENCOUNTER 2020-04-05 09:58 | Emergency (ER) | payer OTHER ==
[~2020-04-05] VITALS: Ht 175.3 cm; Wt 68.0 kg
[~2020-04-05 09:58] MED LIST changes: +LEVO750T5 PO; +MUPI22OI2 TP; +PRED20TA PO
[2020-04-05 10:08] VITALS: BP 99/50
[2020-04-05] MEDS ORDERED: HYDR-3165 PO (10:17)
[2020-04-05] MEDS ORDERED: CLIN150C14 PO (10:17)
--- NOTE | 2020-04-05 10:17 | PHYS DOC ---
Past History Past Medical History: COPD, HIV Past Surgical History: Other Additional Past Surgical Histo: per pt- plates and screws to right leg, currently in boot Smoking: Cigarettes, Greater than 1 pack/day Alcohol Use: None Drug Use: None General Adult EDM: Chief Complaint: DENTAL PROBLEM HPI: HPI: Patient is a 55-year-old female who presented to ER today for evaluation of left-sided lower jaw pain. Patient says she broke 1 of her teeth 1 week ago and has been having pain since. She cannot get into see her dentist until next week. Review of Systems: Review of Systems: Constitutional: Denies fever or chills Eyes: Denies change in visual acuity HENT: Denies nasal congestion or sore throat . positive for dental pain and jaw swelling Respiratory: Denies cough or shortness of breath Cardiovascular: Denies chest pain or edema GI: Denies abdominal pain, nausea, vomiting, bloody stools or diarrhea : Denies dysuria Musculoskeletal: Denies back pain or joint pain Integument: Denies rash Neurologic: Denies headache, focal weakness or sensory changes Endocrine: Denies polyuria or polydipsia Lymphatic: Denies swollen glands Psychiatric: Denies depression or anxiety Heart Score: Risk Factors: Risk Factors: DM, Current or recent (<one month) smoker, HTN, HLP, family history of CAD, obesity. Risk Scores: Score 0 - 3: 2.5% MACE over next 6 weeks - Discharge Home Score 4 - 6: 20.3% MACE over next 6 weeks - Admit for Clinical Observation Score 7 - 10: 72.7% MACE over next 6 weeks - Early Invasive Strategies Allergies: Allergies: Allergies Coded Allergies Type Severity Reaction Last Updated Verified amoxicillin Allergy Intermediate Rash 03/27/20 Yes aspirin Allergy Intermediate gi 03/27/20 No tetracycline Allergy Intermediate gi 03/27/20 No NSAIDS (Non-Steroidal Anti-Inflamma Adverse Reaction Intermediate Nausea and Vomiting 03/27/20 Yes Physical Exam: PE: Constitutional: Well developed, well nourished, no acute distress, non-toxic appearance. [] HENT: Normocephalic, atraumatic, bilateral external ears normal, oropharynx moist, no oral exudates, nose normal. Left lower jaw swelling, there is diffuse dental decay and multiple missing teeth, there is a palpable swelling, indurated area on left lower gumline by the 1 premolar area. There is no trismus. Eyes: PERRLA, EOMI, conjunctiva normal, no discharge. [] Neck: Normal range of motion, no tenderness, supple, no stridor. [] Cardiovascular:Heart rate regular rhythm, no murmur [] Lungs & Thorax: Bilateral breath sounds clear to auscultation [] Abdomen: Bowel sounds normal, soft, no tenderness, no masses, no pulsatile masses. [] Skin: Warm, dry, no erythema, no rash. [] Back: No tenderness, no CVA tenderness. [] Extremities: No tenderness, no cyanosis, no clubbing, ROM intact, no edema. [] Neurologic: Alert and oriented X 3, normal motor function, normal sensory function, no focal deficits noted. [] Psychologic: Affect normal, judgement normal, mood normal. [] EKG: EKG: [] Radiology/Procedures: Radiology/Procedures: [] Course & Med Decision Making: Course & Med Decision Making Pertinent Labs and Imaging studies reviewed. (See chart for details) Patient is a 55-year-old female who presented with dental pain and swelling. On examination it appears patient patient had dental abscess, patient declined I&D procedure at this time. Patient would like to be treated with pain medication and antibiotics first, she will come back for reevaluation if she not getting better within the next 2 days. Keyur Disclaimer: Keyur Disclaimer: This electronic medical record was generated, in whole or in part, using a voice recognition dictation system. Departure Departure: Impression: Primary Impression: Abscess, dental Disposition: 01 HOME/RESIDENCE PRIOR TO ADM Condition: STABLE Referrals: PCP,NO (PCP) PLEASE FOLLOW UP WITH YOUR DENTIST NEXT WEEK Patient Instructions: Dental Abscess Additional Instructions: Thank you for visiting our Emergency Department. We appreciate you trusting us with your care. If any additional problems come up don't hesitate to return to visit us. Please follow up with your primary care provider so they can plan additional care if needed and know about the problem that you had. If symptoms worsen come back to the Emergency Department. Any concerning symptoms that start such as chest pain, shortness of air, weakness or numbness on one side of the body, running high fevers or any other concerning symptoms return to the ER. Scripts Hydrocodone Bit/Acetaminophen (NORCO 5-325 TABLET) 1 Each Tablet 1 TAB PO QID PRN for PAIN, #15 TAB Prov: AVINASH GALLEGO DO 04/05/20 Clindamycin Hcl (CLINDAMYCIN HCL) 150 Mg Capsule 2 CAP PO QID for DENTAL ABSCESS for 10 Days, #80 CAP Prov: AVINASH GALLEGO DO 04/05/20 AVINASH GALLEGO DO Apr 05, 2020 10:17
== END 2020-04-05 10:24 | disposition home or self-care (01) ==
LOC: ER 09:58
DX: K04.7 Periapical abscess without sinus (principal); J44.9 Chronic obstructive pulmonary disease, unspecified; F17.210 Nicotine dependence, cigarettes, uncomplicated; Z88.1 Allergy status to other antibiotic agents; Z88.6 Allergy status to analgesic agent
CPT/HCPCS: 99283

== ENCOUNTER 2020-05-16 16:52 | Emergency (ER) | payer OTHER ==
[~2020-05-16] VITALS: Ht 175.3 cm; Wt 70.5 kg
[~2020-05-16 16:52] MED LIST changes: +CLIN150C14 PO
--- NOTE | 2020-05-16 17:46 | PHYS DOC ---
Past History Past Medical History: COPD, HIV (RUTH NICKERSON APRN) Past Surgical History: Other Additional Past Surgical Histo: per pt- plates and screws to right leg (RUTH NICKERSON APRN) Smoking: Cigarettes, Greater than 1 pack/day Alcohol Use: None Drug Use: None (RUTH NICKERSON APRN) Adult General Chief Complaint Chief Complaint: ABDOMINAL PAIN HPI HPI Patient is a 55-year-old female patient with history of HIV who presents to the ED today complaining of constipation. Patient states she has been on hydro codone for the last 3 months for an ankle surgery. She states she has had multiple episodes of constipation. Her last bowel movement was yesterday and she describes it as a small pebble. She states she has tried a couple sips of mag citrate and an enema with no significant relief. Reports nausea with no vomiting. (RUTH NICKERSON APRN) Review of Systems Review of Systems Constitutional: Denies fever or chills [] Eyes: Denies change in visual acuity, redness, or eye pain [] HENT: Denies nasal congestion or sore throat [] Respiratory: Denies cough or shortness of breath [] Cardiovascular: No additional information not addressed in HPI [] GI: Reports constipation, nausea, denies vomiting, bloody stools or diarrhea [] : Denies dysuria or hematuria [] Musculoskeletal: Denies back pain or joint pain [] Integument: Denies rash or skin lesions [] Neurologic: Denies headache, focal weakness or sensory changes [] All other systems were reviewed and found to be within normal limits, except as documented in this note. (RUTH NICKERSON APRN) Allergies Allergies Allergies Coded Allergies Type Severity Reaction Last Updated Verified amoxicillin Allergy Intermediate Rash 03/27/20 Yes aspirin Allergy Intermediate gi 03/27/20 No tetracycline Allergy Intermediate gi 03/27/20 No NSAIDS (Non-Steroidal Anti-Inflamma Adverse Reaction Intermediate Nausea and Vomiting 03/27/20 Yes (RUTH NICKERSON APRN) Physical Exam Physical Exam Constitutional: Well developed, well nourished, no acute distress, non-toxic appearance. [] HENT: Normocephalic, atraumatic, bilateral external ears normal, oropharynx moist, no oral exudates, nose normal. [] Eyes: PERRLA, EOMI, conjunctiva normal, no discharge. [] Neck: Normal range of motion, no tenderness, supple, no stridor. [] Cardiovascular:Heart rate regular rhythm, no murmur [] Lungs & Thorax: Bilateral breath sounds clear to auscultation [] Abdomen: Bowel sounds normal, soft, diffuse tenderness, no point tenderness to the right upper quadrant or right lower quadrant, no masses, no pulsatile masses. [] Skin: Warm, dry, no erythema, no rash. [] Back: No tenderness, no CVA tenderness. [] Extremities: No tenderness, no cyanosis, no clubbing, ROM intact, no edema. [] Neurologic: Alert and oriented X 3, normal motor function, normal sensory function, no focal deficits noted. [] Psychologic: Affect normal, judgement normal, mood normal. [] (RUTH NICKERSON APRN) Current Patient Data Vital Signs Vital Signs Date Time Temp Pulse Resp B/P (MAP) Pulse Ox O2 Delivery O2 Flow Rate FiO2 05/16/20 17:18 98.3 75 16 99/50 (66) 98 Room Air (RUTH NICKERSON APRN) EKG EKG [] (RUTH NICKERSON APRN) Radiology/Procedures Radiology/Procedures []PROCEDURE: ABDOMEN SUPINE & UPRIGHT Two-view abdomen radiographs 05/16/2020 CLINICAL HISTORY: Constipation. Supine and erect AP digital radiographs of the abdomen/pelvis were obtained. The lung bases are clear. The abdominal bowel gas pattern is nonobstructive. A moderate amount of stool is seen scattered throughout the colon. Calcifications are seen within the pelvis consistent with phleboliths. No free air is seen. No radiopaque calculus is noted. Mild degenerative changes are seen involving the mid and lower lumbar spine along with both hips. IMPRESSION: Nonobstructive bowel gas pattern. Electronically signed by: Juan F Monk MD (05/16/2020 5:50 PM) [id number] DICTATED AND SIGNED BY: JUAN F MONK MD DATE: 05/16/20 1750 CC: RUTH NICKERSON APRN; PCP,UNKNOWN ~ (RUTH NICKERSON APRN) Heart Score Risk Factors: Risk Factors: DM, Current or recent (<one month) smoker, HTN, HLP, family history of CAD, obesity. Risk Scores: Risk Factors: DM, Current or recent (<one month) smoker, HTN, HLP, family history of CAD, obesity. (RUTH NICKERSON APRN) Course & Med Decision Making Course & Med Decision Making Pertinent Labs and Imaging studies reviewed. (See chart for details) This is a 55-year-old female patient presented to the ED today with constipation. She is on hydrocodone for the last 3 months. She states she had an ankle injury. Abdomen supine x-rays noted for constipation otherwise no acute findings. Encouraged this patient to get off hydrocodone. Encourage patient to increase water intake, dietary fiber intake, encourage her to take docusate and MiraLAX every day. Recommended mag citrate for constipation. (RUTH NICKERSON APRN) Course & Med Decision Making I discussed the care of the patient with the RN INTAKE/PA. I agree with the findings and plan of care as documented in the note above. (KELSY ZAMUDIO DO) Dragon Disclaimer Dragon Disclaimer This electronic medical record was generated, in whole or in part, using a voice recognition dictation system. (RUTH NICKERSON APRN) Departure Departure: Impression: Primary Impression: Constipation Disposition: 01 DC HOME SELF CARE/HOMELESS Condition: STABLE Referrals: PCP,UNKNOWN (PCP) follow up with your doctor in 1-2 weeks Patient Instructions: Constipation, Adult, [id number] Additional Instructions: You were evaluated for constipation. Consider stopping hydrocodone. Please in crease your water intake to 64 ounces per day, increase your dietary fiber intake, also consider taking a stool softener every day MiraLAX. When you get constipated consider using magnesium citrate 1 bottle. Problem Qualifiers Primary Impression: Constipation Constipation type: drug induced constipation Qualified Codes: K59.03 - Drug induced constipation RUTH NICKERSON APRN May 16, 2020 17:46 KELSY ZAMUDIO DO May 17, 2020 21:30
--- NOTE | 2020-05-16 17:53 | RAD ---
Two-view abdomen radiographs 05/16/2020 CLINICAL HISTORY: Constipation. Supine and erect AP digital radiographs of the abdomen/pelvis were obtained. The lung bases are clear. The abdominal bowel gas pattern is nonobstructive. A moderate amount of stool is seen scattered throughout the colon. Calcifications are seen within the pelvis consistent with phleboliths. No free air is seen. No radiopaque calculus is noted. Mild degenerative changes are seen involving the mid and lower lumbar spine along with both hips. IMPRESSION: Nonobstructive bowel gas pattern. Electronically signed by: Juan F Shay MD (05/16/2020 5:50 PM) [id number]
[2020-05-16] MEDS ORDERED: BISACODYL TAB 5 MG TABLET.DR. PO ONE (18:10)
[2020-05-16] MEDS ORDERED: ONDANSETRON ODT 4 MG TAB.RAPDIS PO ONE (18:15)
[2020-05-16] MEDS ORDERED: MAGNESIUM CITRATE 296 ML SOLUTION. PO ONE (18:15)
[2020-05-16 18:34] VITALS: BP 113/67
== END 2020-05-16 18:49 | disposition home or self-care (01) ==
LOC: ER 16:52
DX: K59.03 Drug induced constipation (principal); J44.9 Chronic obstructive pulmonary disease, unspecified; F17.210 Nicotine dependence, cigarettes, uncomplicated; Z88.1 Allergy status to other antibiotic agents; Z88.6 Allergy status to analgesic agent
CPT/HCPCS: 74019; 99284; Q0162

== ENCOUNTER 2020-10-24 12:31 | Emergency (ER) | payer OTHER ==
[~2020-10-24] VITALS: Ht 175.3 cm; Wt 70.5 kg
[~2020-10-24 12:31] MED LIST changes: -CLIN150C14 PO; +CLIN150C15 PO
[2020-10-24] MEDS ORDERED: ACETAMINOPHEN 500 MG TABLET PO ONE (13:30)
[2020-10-24] MEDS ORDERED: IV NORMAL SALINE 1,000ML 1,000 ML IV ONE (13:30)
[2020-10-24] MEDS ORDERED: ONDANSETRON PF 4 MG/2 ML VIAL. IVP ONE (13:30)
[2020-10-24] MEDS ORDERED: ONDA4TAB7 PO (13:40)
--- NOTE | 2020-10-24 13:41 | PHYS DOC ---
Past History Past Medical History: Anxiety, COPD, Depression, HIV, Other Additional Past Medical Histor: PTSD, neuropathy Past Surgical History: Hysterectomy, Other Additional Past Surgical Histo: per pt- plates and screws to right leg; right foot Smoking: Cigarettes, Greater than 1 pack/day Alcohol Use: Occasionally Drug Use: None General Adult EDM: Chief Complaint: MULTIPLE COMPLAINTS HPI: HPI: Patient is a 55-year-old female who presents with dizziness, fever, nausea/vomiting/diarrhea, headache. Patient states that she has been dizzy since yesterday. "I was at the pharmacy yesterday and I felt like that I was going to pass out". Patient states she is been taking Tylenol at home with little relief. Patient is able to keep down fluids. Patient states "my brother and [id number] both are sick and I been with him for the last couple of days". Denies cough, shortness of breath, chest pain. Patient has history of COPD, HIV, anxiety and depression. Review of Systems: Review of Systems: Constitutional: Reports fever and chills Eyes: Denies change in visual acuity HENT: Denies nasal congestion or sore throat Respiratory: Denies cough or shortness of breath Cardiovascular: Denies chest pain or edema GI: Denies abdominal pain, nausea, vomiting, bloody stools or diarrhea : Denies dysuria Musculoskeletal: Denies back pain or joint pain Integument: Denies rash Neurologic: Denies headache, focal weakness or sensory changes Endocrine: Denies polyuria or polydipsia Lymphatic: Denies swollen glands Psychiatric: Reports depression or anxiety Current Medications: Current Meds: Current Medications Medications (Trade) Dose Ordered Sig/[facility] Start Time Stop Time Status Last Admin Dose Admin Acetaminophen (Tylenol) 1,000 mg 1X ONCE 10/24/20 13:30 10/24/20 13:31 DC Ondansetron HCl (Zofran) 4 mg 1X ONCE 10/24/20 13:30 10/24/20 13:31 DC Sodium Chloride 1,000 ml @ 1,000 mls/hr 1X ONCE 10/24/20 13:30 10/24/20 14:29 Allergies: Allergies: Allergies Coded Allergies Type Severity Reaction Last Updated Verified amoxicillin Allergy Intermediate Rash 10/24/20 Yes aspirin Allergy Intermediate gi 10/24/20 No tetracycline Allergy Intermediate gi 10/24/20 No NSAIDS (Non-Steroidal Anti-Inflamma Adverse Reaction Intermediate Nausea and Vomiting 10/24/20 Yes Physical Exam: PE: Constitutional: Well developed, well nourished, no acute distress, non-toxic appearance. [] HENT: bilateral external ears normal, oropharynx moist, no oral exudates, nose normal. [] Eyes: PERRLA, EOMI, conjunctiva normal, no discharge. [] Neck: Normal range of motion, no tenderness, supple, no stridor. [] Cardiovascular:Heart rate regular rhythm, no murmur [] Lungs & Thorax: Bilateral breath sounds clear to auscultation [] Abdomen: Bowel sounds normal, soft, no tenderness Skin: Warm, dry Back: No tenderness, no CVA tenderness. [] Extremities: No tenderness, no cyanosis, no clubbing, ROM intact, no edema. [] Neurologic: Alert and oriented X 3, normal motor function, normal sensory function, no focal deficits noted. [] Psychologic: Affect normal, judgement normal, mood normal. [] Current Patient Data: Vital Signs: Vital Signs Date Time Temp Pulse Resp B/P (MAP) Pulse Ox O2 Delivery O2 Flow Rate FiO2 10/24/20 12:54 98.5 75 24 154/74 (100) 100 Room Air EKG: EKG: Sinus rhythm. Heart rate 60 bpm. Intervals normal. [place] normal. [] Radiology/Procedures: Radiology/Procedures: [] Heart Score: C/O Chest Pain: No Risk Factors: Risk Factors: DM, Current or recent (<one month) smoker, HTN, HLP, family history of CAD, obesity. Risk Scores: Score 0 - 3: 2.5% MACE over next 6 weeks - Discharge Home Score 4 - 6: 20.3% MACE over next 6 weeks - Admit for Clinical Observation Score 7 - 10: 72.7% MACE over next 6 weeks - Early Invasive Strategies Course & Med Decision Making: Course & Med Decision Making Pertinent Labs and Imaging studies reviewed. (See chart for details) [] Patient presents with dizziness, fever, nausea/vomiting/diarrhea, headache. Patient states when she was at the pharmacy states she felt like she was going to pass out. Patient just returned from a trip from [place] with her family who are also sick with the same symptoms. Patient states that she has been able to keep down fluids. EKG shows sinus rhythm. Heart rate 60 bpm. Troponin is negative. All other labs unremarkable. Patient reports nausea is better after Zofran. Patient was also given Tylenol and fluids for headache. Patient states that she feels much better. Patient is okay with being discharged to home. Patient hemodynamically stable. Dragon Disclaimer: Dragon Disclaimer: This electronic medical record was generated, in whole or in part, using a voice recognition dictation system. Departure Departure: Impression: Primary Impression: Viral syndrome Disposition: HOME / SELF CARE / HOMELESS Condition: STABLE Referrals: PCP,UNKNOWN (PCP) Patient Instructions: Viral Syndrome Additional Instructions: You are seen in the emergency room for nausea/vomiting/diarrhea, fever. You were given Zofran in the emergency room to treat your nausea, Tylenol and flu ids. Please continue take Tylenol at home for chills and fever. I am also prescribing you Zofran to take for nausea at home. You have also requested a Covid test which we performed. We will not have results for 48 hours. Please quarantine yourself until results are provided. Please return to the emergency room with worsening symptoms or concerns. EMERGENCY DEPARTMENT GENERAL DISCHARGE INSTRUCTIONS Thank you for coming to [facility] (ED) today and trusting us with you care. We trust that you had a positivie experience in our Emergency Department. If you wish to speak to the department management, you may call the director at [phone]. YOUR FOLLOW UP INSTRUCTIONS ARE FOLLOWS: 1. Do you have a private Doctor? If you do not have a private doctor, please ask for a resource list of physicians or clinics that may be able to assist you with follow up care. 2. The Emergency Physician has interpreted your x-rays. The X-Ray specialist will also review them. If there is a change in the findings, you will be notified in 48 hours when at all possible. 3. A lab test or culture has been done, your results will be reviewed and you will be notified if you need a change in treatment. ADDITIONAL INSTRUCTIONS AND INFORMATION: 1. Your care today has been supervised by a physician who is specially trained in emergency care. Many problems require more than one evaluation for a complete diagnosis and treatment. We recommend that you schedule your follow up appointment as wolf mmended to ensure complete treatment of you illness or injury. If you are unable to obtain follow up care and continue to have a problem, or if your condition worsens, we recommend that you return to the ED. 2. We are not able to safely determine your condition over the phone nor are we able to give sound medical advice over the phone. For these safety reasons, if you call for medical advice we will ask you to come to the ED for further evaluation. 3. If you have any questions regarding these discharge instructions please call the ED at [phone]. SAFETY INFORMATION: In the interest of safety, wellness, and injury prevention; we encourage you to wear your sealbelt, if you smoke; quite smoking, and we encourage family to use a protective helmet for bicycling and other sporting events that present an increased risk for head injury. IF YOUR SYMPTOMS WORSEN OR NEW SYMPTOMS DEVELOP, OR YOU HAVE CONCERNS ABOUT YOUR CONDITION; OR IF YOUR CONDITION WORSENS WHILE YOU ARE WAITING FOR YOUR FOLLOW UP APPOINTMENT; EITHER CONTACT YOUR PRIMARY CARE DOCTOR, THE PHYSICIAN WHOSE NAME AND NUMBER YOU WERE GIVEN, OR RETURN TO THE ED IMMEDIATELY. Scripts Ondansetron Hcl (ZOFRAN) 4 Mg Tablet 4 MG PO TID PRN PRN for NAUSEA, #9 TAB Prov: DEWAYNE VELA APRN 10/24/20 DEWAYNE VELA APRN Oct 24, 2020 13:40
--- NOTE | 2020-10-24 13:46 | EKG ---
[address] [address] Test Date: 2020-10-24 Test Time: 13:29:18 Pat Name: MURRAY REYES Department: Room: Gender: F Medicine Man: AMY : 1965 Requested By: DEWAYNE VELA Order Number: [id number] Reading MD: Measurements Intervals [place] Rate: 60 P: 54 CT: 188 QRS: 14 QRSD: 78 T: 51 QT: 366 QTc: 366 Interpretive Statements SINUS RHYTHM OTHERWISE NORMAL ECG RI6.02 No previous ECG available for comparison
--- NOTE | 2020-10-24 14:18 | RAD ---
EXAM: Chest, single view. HISTORY: Dizziness. COMPARISON: None. FINDINGS: A frontal view of the chest is obtained. There is no infiltrate, pleural effusion or pneumo thorax. The heart is normal in size. There are nodular opacities due to nipple shadows overlying the bilateral lower thorax. IMPRESSION: No acute pulmonary finding. Electronically signed by: Danita Mejia MD (10/24/2020 2:16 PM) [id number]
[2020-10-24 14:21] LABS: BASO % 1 % (0-3); EOS % 1 % (0-3); HEMATOCRIT 40.6 % (36.0-47.0); HEMOGLOBIN 13.9 g/dL (12.0-15.5); LYMPH # 1.5 x10^3/uL (1.0-4.8); LYMPH % 22 % (24-48); MEAN CORPUSCULAR HEMOGLOBIN 33 pg (25-35); MEAN CORPUSCULAR HGB CONC 34 g/dL (31-37); MEAN CORPUSCULAR VOLUME 97 fL (79-100); MONO # 0.3 x10^3/uL (0.0-1.1); MONO % 5 % (0-9); NEUT # 5.1 x10^3uL (1.8-7.7); NEUT % 73 % (31-73); PLATELET COUNT 252 x10^3/uL (140-400); RED BLOOD COUNT 4.18 x10^6/uL (3.50-5.40); RED CELL DISTRIBUTION WIDTH 13.2 % (11.5-14.5)
[2020-10-24 14:30] LABS: CALCIUM 9.7 mg/dL (8.5-10.1); CREATININE 0.9 mg/dL (0.6-1.0); GFR 64.5; POTASSIUM 4.3 mmol/L (3.5-5.1)
[2020-10-24 17:06] VITALS: BP 127/86
== END 2020-10-24 16:25 | disposition home or self-care (01) ==
LOC: ER 12:31
DX: B34.9 Viral infection, unspecified (principal); F41.9 Anxiety disorder, unspecified; J44.9 Chronic obstructive pulmonary disease, unspecified; F17.210 Nicotine dependence, cigarettes, uncomplicated; F43.10 Post-traumatic stress disorder, unspecified; Z88.1 Allergy status to other antibiotic agents; Z88.6 Allergy status to analgesic agent
CPT/HCPCS: 36415; 71045; 80048; 83690; 84484; 85025; 93005; 96361; 96374; 99285; J2405; J7030

== ENCOUNTER 2021-02-06 11:14 | Emergency (ER) | payer OTHER ==
[~2021-02-06] VITALS: Ht 175.3 cm; Wt 83.1 kg
[~2021-02-06 11:14] MED LIST changes: -ACYC-63 PO; +ACYC200C84 PO; -CLIN150C15 PO; +CLIN150C16 PO
--- NOTE | 2021-02-06 11:49 | PHYS DOC ---
Past History Past Medical History: Anxiety, COPD, Depression, HIV, Other Additional Past Medical Histor: PTSD, neuropathy (BRITTANEY ESTRADA APRN) Past Surgical History: Hysterectomy, Other Additional Past Surgical Histo: per pt- plates and screws to right leg; right foot (BRITTANEY ESTRADA APRN) Smoking: Cigarettes, Greater than 1 pack/day Alcohol Use: Occasionally Drug Use: None (BRITTANEY ESTRADA APRN) General Adult EDM: Chief Complaint: MULTIPLE COMPLAINTS HPI: HPI: Patient is a 55-year-old female seen in the ER today for multiple complaints. Patient is complaining of racing heart, lightheadedness, shortness of breath, sore throat, subjective fever, loss of taste, nausea, cough, nasal drainage. Symptoms started on Thursday. Patient reports that she had a positive Covid exposure. Patient denies any pain currently, vomiting. She has been taking Zofran for her nausea. She had a rapid Covid test that was negative yesterday. (BRITTANEY ESTRADA APRN) Review of Systems: Review of Systems: 14 body systems of the review of systems have been reviewed. See HPI for perti nent positive and negative responses, otherwise all other systems are negative, nonpertinent or noncontributory (BRITTANEY ESTRADA APRN) Allergies: Allergies: Allergies Coded Allergies Type Severity Reaction Last Updated Verified amoxicillin Allergy Intermediate Rash 10/24/20 Yes aspirin Allergy Intermediate gi 10/24/20 No tetracycline Allergy Intermediate gi 10/24/20 No NSAIDS (Non-Steroidal Anti-Inflamma Adverse Reaction Intermediate Nausea and Vomiting 10/24/20 Yes (BRITTANEY ESTRADA APRN) Physical Exam: PE: Constitutional: Well developed, well nourished, no acute distress, non-toxic appearance. [] HENT: Normocephalic, atraumatic, several broken teeth and dental caries noted Eyes: PERRL, conjunctiva normal, no discharge. [] Neck: Normal range of motion, no stridor Cardiovascular:Heart rate regular rhythm, no murmur [] Lungs & Thorax: Bilateral breath sounds clear to auscultation [] Abdomen: Bowel sounds normal, soft, no tenderness, no masses, no pulsatile masses. [] Skin: Warm, dry, no erythema, no rash. [] Back: Normal range of motion Extremities: No tenderness, no cyanosis, no clubbing, ROM intact, no edema. [] Neurologic: Alert and oriented X 3, normal motor function, normal sensory function, no focal deficits noted. [] Psychologic: Affect normal, judgement normal, mood normal. [] (BRITTANEY ESTRADA APRN) Current Patient Data: Labs: Laboratory Tests Test 02/06/21 12:10 White Blood Count 7.4 x10^3/uL Red Blood Count 4.32 x10^6/uL Hemoglobin 14.1 g/dL Hematocrit 41.6 % Mean Corpuscular Volume 97 fL Mean Corpuscular Hemoglobin 33 pg Mean Corpuscular Hemoglobin Concent 34 g/dL Red Cell Distribution Width 13.1 % Platelet Count 250 x10^3/uL Neutrophils (%) (Auto) 66 % Lymphocytes (%) (Auto) 26 % Monocytes (%) (Auto) 5 % Eosinophils (%) (Auto) 2 % Basophils (%) (Auto) 1 % Neutrophils # (Auto) 4.9 x10^3uL Lymphocytes # (Auto) 1.9 x10^3/uL Monocytes # (Auto) 0.4 x10^3/uL Eosinophils # (Auto) 0.1 x10^3/uL Basophils # (Auto) 0.1 x10^3/uL Sodium Level 141 mmol/L Potassium Level 4.3 mmol/L Chloride Level 102 mmol/L Carbon Dioxide Level 25 mmol/L Anion Gap 14 Blood Urea Nitrogen 13 mg/dL Creatinine 0.9 mg/dL Estimated GFR (Cockcroft-Gault) 64.5 BUN/Creatinine Ratio 14 Glucose Level 113 mg/dL Calcium Level 9.0 mg/dL Total Bilirubin 0.4 mg/dL Aspartate Amino Transf (AST/SGOT) 19 U/L Alanine Aminotransferase (ALT/SGPT) 26 U/L Alkaline Phosphatase 103 U/L Troponin I Quantitative < 0.017 ng/mL Total Protein 7.3 g/dL Albumin 3.5 g/dL Albumin/Globulin Ratio 0.9 Current Medications Medications (Trade) Dose Ordered Sig/Fantasma Route PRN Reason Start Time Stop Time Status Last Admin Dose Admin Sodium Chloride 1,000 ml @ 1,000 mls/hr 1X ONCE IV 02/06/21 12:00 02/06/21 12:59 DC 02/06/21 12:13 (BRITTANEY ESTRADA APRN) EKG: EKG: EKG performed at 12:00 by ER staff shows sinus rhythm, no STEMI as read by Dr. Voss [id number] [] (BRITTANEY ESTRADA APRN) Radiology/Procedures: Radiology/Procedures: PROCEDURE: CHEST AP ONLY EXAM: Chest, single view. HISTORY: Shortness of air. COMPARISON: 10/24/2020 FINDINGS: A frontal view of the chest is obtained. There is no infiltrate, pleural effusion or pneumothorax. The heart is normal in size. IMPRESSION: No acute pulmonary finding. Electronically signed by: Danita Gutierrez MD (02/06/2021 12:24 PM) [id number] DICTATED AND SIGNED BY: DANITA GUTIERREZ MD DATE: 02/06/21 1224 CC: BRITTANEY ESTRADA APRN; LAURA CHAUHAN DO ~MTH0 0 [] (BRITTANEY ESTRADA APRN) Heart Score: C/O Chest Pain: No Risk Factors: Risk Factors: DM, Current or recent (<one month) smoker, HTN, HLP, family hist ory of CAD, obesity. Risk Scores: Score 0 - 3: 2.5% MACE over next 6 weeks - Discharge Home Score 4 - 6: 20.3% MACE over next 6 weeks - Admit for Clinical Observation Score 7 - 10: 72.7% MACE over next 6 weeks - Early Invasive Strategies (BRITTANEY ESTRADA APRN) Course & Med Decision Making: Course & Med Decision Making Pertinent Labs and Imaging studies reviewed. (See chart for details) [] Patient is a 55-year-old female being seen in the ER for multiple complaints including lightheadedness, loss of taste, nausea, racing heart, shortness of breath, sore throat, nasal congestion, cough, subjective fevers. Work-up in the ER consisted of blood work, UA, EKG, chest x-ray, Covid testing. Lab work unremarkable, EKG shows sinus rhythm, chest x-ray showed no acute findings. Patient treated with nausea medication, fluids, pain medication in the ER. Patient was tested for COVID-19 in the ER. Given patient's multiple Covid-like symptoms, and her positive exposure it is likely that patient does have COVID- 19. This result is pending. She will be notified of her results when they become available. Patient reports that she missed her dentist appointment due to her Covid symptoms. She has multiple areas of broken teeth and dental caries and is requesting an antibiotic. Patient discharged home with a prescription for an antibiotic. I discussed with patient all findings and diagnostic testing as well as the need to follow-up with PCP for further evaluation and treatment or return to the ER if any new or worsening symptoms. Strict return precautions were also discussed at length. Patient voiced understanding and agreement with the plan. Patient is hemodynamically stable at the time of disposition. (BRITTANEY ESTRADA APRN) Dragon Disclaimer: Keyur Disclaimer: This electronic medical record was generated, in whole or in part, using a voice recognition dictation system. (BRITTANEY ESTRADA APRN) Attending Co-Sign The patient was seen and interviewed as well as examined at the bedside. The chart was reviewed. The case was discussed. Agree with the plan of care. (ALEXI VOSS DO) Departure Departure: Impression: Primary Impression: Person under investigation for COVID-19 Additional Impression: Dentalgia Disposition: HOME / SELF CARE / HOMELESS Condition: GOOD Referrals: LAURA CHAUHAN DO (PCP) Patient Instructions: Nausea and Vomiting Additional Instructions: You were seen in the ER today for multiple complaints. Your work-up in the ER was unremarkable. Your physical exam was reassuring. You did not have any signs of infection in your blood work. Your chest x-ray was negative for pneumonia. Rest and increase your fluids at home. You can take your Zofran that you had previously prescribed for you for nausea. You can use a clear liquid diet for the rest of today. This includes soups, Gatorade, Jell-O. Over the next 48 hours stick to a bland diet which includes bananas, rice, applesauce, toast. You were tested in the ER for COVID-19. I think it is likely that you do have COVID-19. Please self isolate until you receive these results. You can take Tylenol or ibuprofen for pain at home. You were also sent in a prescription for an antibiotic for your dental infection. Please start and finish this antibiotic completely. If you develop shortness of breath, chest pain, syncope, high fevers refractory to treatment, uncontrollable nausea or vomiting please return to the ER immediately. EMERGENCY DEPARTMENT GENERAL DISCHARGE INSTRUCTIONS Thank you for coming to [facility] (ED) today and trusting us with you care. We trust that you had a positivie experience in our Emergency Department. If you wish to speak to the department management, you may call the director at [phone]. YOUR FOLLOW UP INSTRUCTIONS ARE FOLLOWS: 1. Do you have a private Doctor? If you do not have a private doctor, please ask for a resource list of physicians or clinics that may be able to assist you with follow up care. 2. The Emergency Physician has interpreted your x-rays. The X-Ray specialist will also review them. If there is a change in the findings, you will be notified in 48 hours when at all possible. 3. A lab test or culture has been done, your results will be reviewed and you will be notified if you need a change in treatment. ADDITIONAL INSTRUCTIONS AND INFORMATION: 1. Your care today has been supervised by a physician who is specially trained in emergency care. Many problems require more than one evaluation for a complete diagnosis and treatment. We recommend that you schedule your follow up appointment as recommended to ensure complete treatment of you illness or injury. If you are unable to obtain follow up care and continue to have a problem, or if your condition worsens, we recommend that you return to the ED. 2. We are not able to safely determine your condition over the phone nor are we able to give sound medical advice over the phone. For these safety reasons, if you call for medical advice we will ask you to come to the ED for further evaluation. 3. If you have any questions regarding these discharge instructions please call the ED at [phone]. SAFETY INFORMATION: In the interest of safety, wellness, and injury prevention; we encourage you to wear your sealbelt, if you smoke; quite smoking, and we encourage family to use a protec tive helmet for bicycling and other sporting events that present an increased risk for head injury. IF YOUR SYMPTOMS WORSEN OR NEW SYMPTOMS DEVELOP, OR YOU HAVE CONCERNS ABOUT YOUR CONDITION; OR IF YOUR CONDITION WORSENS WHILE YOU ARE WAITING FOR YOUR FOLLOW UP APPOINTMENT; EITHER CONTACT YOUR PRIMARY CARE DOCTOR, THE PHYSICIAN WHOSE NAME AND NUMBER YOU WERE GIVEN, OR RETURN TO THE ED IMMEDIATELY. Scripts Clindamycin Hcl (CLINDAMYCIN HCL) 150 Mg Capsule 450 MG PO TID for dental infection for 7 Days, #63 CAP 0 Refills Prov: BRITTANEY ESTRADA FILTER SCREEN CLEANER 02/06/21 BRITTANEY ESTRADA APRN Feb 06, 2021 11:49 ALEXI VOSS DO Feb 07, 2021 06:34
[2021-02-06] MEDS ORDERED: IV NORMAL SALINE 1,000ML 1,000 ML IV ONE (12:00)
--- NOTE | 2021-02-06 12:17 | EKG ---
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
--- NOTE | 2021-02-06 12:27 | RAD ---
EXAM: Chest, single view. HISTORY: Shortness of air. COMPARISON: 10/24/2020 FINDINGS: A frontal view of the chest is obtained. There is no infiltrate, pleural effusion or pneumo thorax. The heart is normal in size. IMPRESSION: No acute pulmonary finding. Electronically signed by: Danita Mejia MD (02/06/2021 12:24 PM) [id number]
[2021-02-06 12:29] LABS: BASO # 0.1 x10^3/uL (0.0-0.2); BASO % 1 % (0-3); EOS # 0.1 x10^3/uL (0.0-0.7); EOS % 2 % (0-3); HEMATOCRIT 41.6 % (36.0-47.0); HEMOGLOBIN 14.1 g/dL (12.0-15.5); LYMPH # 1.9 x10^3/uL (1.0-4.8); LYMPH % 26 % (24-48); MEAN CORPUSCULAR HEMOGLOBIN 33 pg (25-35); MEAN CORPUSCULAR HGB CONC 34 g/dL (31-37); MEAN CORPUSCULAR VOLUME 97 fL (79-100); MONO # 0.4 x10^3/uL (0.0-1.1); MONO % 5 % (0-9); NEUT # 4.9 x10^3uL (1.8-7.7); NEUT % 66 % (31-73); PLATELET COUNT 250 x10^3/uL (140-400); RED BLOOD COUNT 4.32 x10^6/uL (3.50-5.40); RED CELL DISTRIBUTION WIDTH 13.1 % (11.5-14.5); WHITE BLOOD COUNT 7.4 x10^3/uL (4.0-11.0)
[2021-02-06 12:47] LABS: CREATININE 0.9 mg/dL (0.6-1.0); GFR 64.5; POTASSIUM 4.3 mmol/L (3.5-5.1)
[2021-02-06 12:53] LABS: ALBUMIN 3.5 g/dL (3.4-5.0); ALBUMIN/GLOBULIN RATIO 0.9 (1.0-1.7); TOTAL BILIRUBIN 0.4 mg/dL (0.2-1.0); TOTAL PROTEIN 7.3 g/dL (6.4-8.2)
[2021-02-06] MEDS ORDERED: ACETAMINOPHEN 325 MG TABLET PO ONE ×2 (13:00→13:05)
[2021-02-06] MEDS ORDERED: ONDANSETRON PF 4 MG/2 ML VIAL. IVP ONE (13:00)
[2021-02-06 13:18] VITALS: BP 130/86
[2021-02-06] MEDS ORDERED: CLIN150C16 PO (13:19)
== END 2021-02-06 13:42 | disposition home or self-care (01) ==
LOC: ER 11:14
DX: S02.5XXA Fracture of tooth (traumatic), initial encounter for closed fracture (principal); K02.9 Dental caries, unspecified; R42 Dizziness and giddiness; J02.9 Acute pharyngitis, unspecified; J44.9 Chronic obstructive pulmonary disease, unspecified; F17.210 Nicotine dependence, cigarettes, uncomplicated; Z20.822 Contact with and (suspected) exposure to COVID-19; Z88.1 Allergy status to other antibiotic agents; Z88.6 Allergy status to analgesic agent; X58.XXXA Exposure to other specified factors, initial encounter; Y93.89 Activity, other specified; Y92.89 Other specified places as the place of occurrence of the external cause; Y99.8 Other external cause status
CPT/HCPCS: 71045; 80053; 84484; 85025; 93005; 96361; 96374; 99285; C9803; J2405; J7030; U0003

== ENCOUNTER 2021-04-23 23:46 | Emergency (ER) | payer OTHER ==
[~2021-04-23] VITALS: Ht 175.3 cm; Wt 85.0 kg
[2021-04-24] MEDS ORDERED: IV NORMAL SALINE 1,000ML 1,000 ML IV SCH
[2021-04-24] MEDS ORDERED: ONDANSETRON PF 4 MG/2 ML VIAL. IVP ONE
--- NOTE | 2021-04-24 00:07 | PHYS DOC ---
Past History Past Medical History: Anxiety, COPD, Depression, HIV, Other Additional Past Medical Histor: PTSD, neuropathy (BRITTANEY ESTRADA APRN) Past Surgical History: Hysterectomy, Other Additional Past Surgical Histo: per pt- plates and screws to right leg; right foot (BRITTANEY ESTRADA APRN) Smoking: Cigarettes, Greater than 1 pack/day Alcohol Use: None Drug Use: None (BRITTANEY ESTRADA APRN) General Adult EDM: Chief Complaint: ABDOMINAL PAIN HPI: HPI: Patient is a 56-year-old female who presents to the emergency department today for umbillical abdominal pain that started 4 days ago. Patient is also repor ting chills, headache, nausea, vomiting, diarrhea. She has had one episode of vomiting in the last 24 hours and several episodes of diarrhea. She rates her abdominal pain 9 out of 10. She has been taking Zofran without any relief. She had a Covid test at [facility] today that was negative. Patient's only medical history is anxiety, COPD and HIV. Patient denies blood in her stools or vomit, hematuria, dysuria, fevers. (BRITTANEY ESTRADA APRN) Review of Systems: Review of Systems: Constitutional: See HPI GI: See HPI : See HPI Neurologic: See HPI (BRITTANEY ESTRADA APRN) Allergies: Allergies: Allergies Coded Allergies Type Severity Reaction Last Updated Verified amoxicillin Allergy Intermediate Rash 04/24/21 Yes aspirin Allergy Intermediate gi 04/24/21 No tetracycline Allergy Intermediate gi 04/24/21 No NSAIDS (Non-Steroidal Anti-Inflamma Adverse Reaction Intermediate Nausea and Vomiting 04/24/21 Yes (BRITTANEY ESTRADA APRN) Physical Exam: PE: Constitutional: Well developed, well nourished, no acute distress, non-toxic appearance. [] HENT: Normocephalic, atraumatic, bilateral external ears normal, oropharynx moist, no oral exudates, nose normal. [] Eyes: PERRL, EOMI, conjunctiva normal, no discharge. [] Neck: Normal range of motion, no stridor Cardiovascular:Heart rate regular rhythm, no murmur [] Lungs & Thorax: Bilateral breath sounds clear to auscultation [] Abdomen: Bowel sounds normal, soft, umbilical and upper abdominal tenderness with palpation, no rebound tenderness, no masses, no pulsatile masses. [] Skin: Warm, dry, no erythema, no rash. [] Back: Normal range of motion Extremities: No tenderness, no cyanosis, no clubbing, ROM intact, no edema. [] Neurologic: Alert and oriented X 3, normal motor function, normal sensory function, no focal deficits noted. [] Psychologic: Affect normal, judgement normal, mood normal. [] (BRITTANEY ESTRADA APRN) Current Patient Data: Labs: Laboratory Tests Test 04/24/21 00:01 White Blood Count 8.9 x10^3/uL Red Blood Count 4.30 x10^6/uL Hemoglobin 13.9 g/dL Hematocrit 41.2 % Mean Corpuscular Volume 96 fL Mean Corpuscular Hemoglobin 32 pg Mean Corpuscular Hemoglobin Concent 34 g/dL Red Cell Distribution Width 12.9 % Platelet Count 241 x10^3/uL Neutrophils (%) (Auto) 61 % Lymphocytes (%) (Auto) 31 % Monocytes (%) (Auto) 6 % Eosinophils (%) (Auto) 2 % Basophils (%) (Auto) 1 % Neutrophils # (Auto) 5.4 x10^3uL Lymphocytes # (Auto) 2.8 x10^3/uL Monocytes # (Auto) 0.5 x10^3/uL Eosinophils # (Auto) 0.1 x10^3/uL Basophils # (Auto) 0.1 x10^3/uL Sodium Level 138 mmol/L Potassium Level 3.6 mmol/L Chloride Level 104 mmol/L Carbon Dioxide Level 23 mmol/L Anion Gap 11 Blood Urea Nitrogen 9 mg/dL Creatinine 0.9 mg/dL Estimated GFR (Cockcroft-Gault) 64.3 BUN/Creatinine Ratio 10 Glucose Level 108 mg/dL Calcium Level 9.6 mg/dL Total Bilirubin 0.5 mg/dL Aspartate Amino Transf (AST/SGOT) 20 U/L Alanine Aminotransferase (ALT/SGPT) 32 U/L Alkaline Phosphatase 97 U/L Total Protein 7.9 g/dL Albumin 3.8 g/dL Albumin/Globulin Ratio 0.9 Lipase 85 U/L Current Medications Medications (Trade) Dose Ordered Sig/Fantasma Route PRN Reason Start Time Stop Time Status Last Admin Dose Admin Sodium Chloride 1,000 ml @ 1,000 mls/hr Q1H IV 04/24/21 00:00 10/20/21 00:59 DC 04/24/21 00:08 Ondansetron HCl (Zofran) 4 mg 1X ONCE IVP 04/24/21 00:00 04/24/21 00:05 DC 04/24/21 00:09 Fentanyl Citrate (Fentanyl 2ml Vial) 50 mcg 1X ONCE IVP 04/24/21 00:00 04/24/21 00:05 DC 04/24/21 00:09 Iohexol (Omnipaque 300 Mg/ml) 75 ml 1X ONCE IV 04/24/21 00:15 04/24/21 00:16 DC 04/24/21 00:25 Info (Do NOT chart on this entry -- for MONITORING) 1 each PRN DAILY PRN MC SEE COMMENTS 04/24/21 00:15 04/26/21 00:14 Vital Signs: Vital Signs Date Time Temp Pulse Resp B/P (MAP) Pulse Ox O2 Delivery O2 Flow Rate FiO2 04/23/21 23:55 98.2 65 22 155/70 (98) 100 (BRITTANEY ESTRADA APRN) EKG: EKG: [] (BRITTANEY ESTRADA APRN) Radiology/Procedures: Radiology/Procedures: []PROCEDURE: CT ABD PELV W/ IV CONTRST ONLY EXAMINATION: CT ABDOMEN+PELVIS W CLINICAL HISTORY: Umbilical abdominal pain TECHNIQUE: CT of the abdomen and pelvis was performed using standard technique, scanning from just above the dome of the diaphragm to the symphysis pubis following administration of intravenous contrast. CT Dose Reduction Employed: One or more of the following individualized dose reduction techniques were utilized for this examination: 1. Automated exposure control 2. Adjustment of the mA and/or kV according to patient size 3. Use of iterative reconstruction technique. COMPARISON: None FINDINGS: Visualized heart and lungs unremarkable. Mildly dilated pancreatic duct measuring up to 5 mm. No visualized pancreatic mass. Diffuse hypoattenuation of the hepatic parenchyma, compatible with steatosis. Gallbladder, spleen, and adrenal glands unremarkable. Subcentimeter hypoenhancing cortical focus in the left kidney, too small adequately characterize. Nondiagnostic evaluation of the nondistended urinary bladder. Hysterectomy. No bowel dilation or definite wall thickening. Appendix within normal limits. Mild arterial atherosclerotic calcification without aneurysm. Prominent but nonenlarged retroperitoneal lymph nodes measuring up to 8 mm in short axis, nonspecific but possibly reactive. No evidence of acute osseous abnormality. IMPRESSION: No evidence of acute abdominopelvic abnormality. Mildly dilated pancreatic duct, nonspecific. Consider nonemergent/outpatient MRCP for further evaluation as indicated. Electronically signed by: Gerald Clarke DO (04/24/2021 12:49 AM) [facility] DICTATED AND SIGNED BY: GERALD CLARKE DO DATE: 04/24/21 0042 CC: EMERGENCY,DEPARTMENT; BRITTANEY ESTRADA APRN; PCP,UNKNOWN ~MTH0 0 (BRITTANEY ESTRADA APRN) Heart Score: C/O Chest Pain: N/A Risk Factors: Risk Factors: DM, Current or recent (<one month) smoker, HTN, HLP, family history of CAD, obesity. Risk Scores: Score 0 - 3: 2.5% MACE over next 6 weeks - Discharge Home Score 4 - 6: 20.3% MACE over next 6 weeks - Admit for Clinical Observation Score 7 - 10: 72.7% MACE over next 6 weeks - Early Invasive Strategies (BRITTANEY ESTRADA APRN) Course & Med Decision Making: Course & Med Decision Making Pertinent Labs and Imaging studies reviewed. (See chart for details) [] Patient presents to the emergency department with multiple complaints co nsisting of abdominal pain, chills, headache, nausea, vomiting and diarrhea. Work-up in the ER consisted of blood work, urinalysis and CT imaging of abdomen and pelvis. She was also tested for COVID-19 in the ER will be notified of those results when they become available in approximately 2 days. Patient was treated with IV fluids, nausea medication and pain medication. Blood work unremarkable. Awaiting urinalysis and CT scan of abdomen and pelvis. [id number]: Patient's CT scan of abdomen was nonspecific showing Mildly dilated pancreatic duct, nonspecific. Consider nonemergent/outpatient MRCP for further evaluation as indicated. Patient treated with another dose of pain medication she was given a GI cocktail. Patient discharged home with nausea medication. She was advised to follow-up with her primary care provider. VSS. I discussed with patient all findings and diagnostic testing as well as the need to follow- up with PCP for further evaluation and treatment or return to the ER if any new or worsening symptoms. Strict return precautions were also discussed at length. Patient voiced understanding and agreement with the plan. Patient is hemodynamically stable at the time of disposition. (BRITTANEY ESTRADA APRN) Course & Med Decision Making Prior to discharge, the patient continued to feel very nauseated and thought she was going to throw up. She was given additional Phenergan and 4 mg of Zofran ODT. She still felt nauseous so I ordered an EKG and troponin. She finally u rinated for a urine sample. EKG is remarkable only for prolonged LA interval. Her troponin was negative. The patient's urinalysis is negative for infection. Her urine drug screen is positive for marijuana. Given the rest of her exam is benign, this seems like a likely cause for her vomiting. (ALEXI VOSS DO) Dragon Disclaimer: Dragon Disclaimer: This electronic medical record was generated, in whole or in part, using a voice recognition dictation system. (BRITTANEY ESTRADA APRN) Departure Departure: Impression: Primary Impression: Person under investigation for COVID-19 Additional Impressions: Abdominal pain Qualified Codes: R10.33 - Periumbilical pain Marijuana use Disposition: HOME / SELF CARE / HOMELESS Condition: GOOD Referrals: PCP,UNKNOWN (PCP) Patient Instructions: Abdominal Pain (Nonspecific) Additional Instructions: You were seen in the emergency department today for multiple complaints including abdominal pain, headache, nausea, vomiting and diarrhea. Increase your fluids at home. You are being discharged home with a medication for nausea called Zofran, take this as directed. For your diarrhea you can take Imodium [id number]. For your headache you can take Tylenol and/or ibuprofen. As we discussed, your blood work was unremarkable. However, your CT scan of your abdomen showed mild dilation of your pancreatic duct which was nonspecific and nonemergent. You need to follow-up with your primary care provider tomorrow regarding this finding. You were also tested for COVID-19 in the emergency department. You will be notified via telephone of your results when they become available in approximately 2 days. Please self isolate until you receive these results. Return to the emergency department if you develop severe abdominal pain, high fevers refractory to treatment, intractable nausea or vomiting, blood in your stools or vomit, lightheadedness, chest pain, shortness of breath or any new or worsening concerns. EMERGENCY DEPARTMENT GENERAL DISCHARGE INSTRUCTIONS Thank you for coming to [facility] (ED) today and trusting us with you care. We trust that you had a positivie experience in our Emergency Department. If you wish to speak to the department management, you may call the director at [phone]. YOUR FOLLOW UP INSTRUCTIONS ARE FOLLOWS: 1. Do you have a private Doctor? If you do not have a private doctor, please ask for a resource list of physicians or clinics that may be able to assist you with follow up care. 2. The Emergency Physician has interpreted your x-rays. The X-Ray specialist will also review them. If there is a change in the findings, you will be notified in 48 hours when at all possible. 3. A lab test or culture has been done, your results will be reviewed and you will be notified if you need a change in treatment. ADDITIONAL INSTRUCTIONS AND INFORMATION: 1. Your care today has been supervised by a physician who is specially trained in emergency care. Many problems require more than one evaluation for a complete diagnosis and treatment. We recommend that you schedule your follow up appointment as recommended to ensure complete treatment of you illness or injury. If you are unable to obtain follow up care and continue to have a problem, or if your condition worsens, we recommend that you return to the ED. 2. We are not able to safely determine your condition over the phone nor are we able to give sound medical advice over the phone. For these safety reasons, if you call for medical advice we will ask you to come to the ED for further evaluation. 3. If you have any questions regarding these discharge instructions please call the ED at [phone]. SAFETY INFORMATION: In the interest of safety, wellness, and injury prevention; we encourage you to wear your sealbelt, if you smoke; quite smoking, and we encourage family to use a protective helmet for bicycling and other sporting events that present an increased risk for head injury. IF YOUR SYMPTOMS WORSEN OR NEW SYMPTOMS DEVELOP, OR YOU HAVE CONCERNS ABOUT YOUR CONDITION; OR IF YOUR CONDITION WORSENS WHILE YOU ARE WAITING FOR YOUR FOLLOW UP APPOINTMENT; EITHER CONTACT YOUR PRIMARY CARE DOCTOR, THE PHYSICIAN WHOSE NAME AND NUMBER YOU WERE GIVEN, OR RETURN TO THE ED IMMEDIATELY. Scripts Ondansetron (ONDANSETRON ODT) 4 Mg Tab.rapdis 1 TAB PO PRN Q6-8HRS for nausea for 4 Days, #16 TAB 0 Refills Prov: BRITTANEY ESTRADA APRN 04/24/21 BRITTANEY ESTRADA APRN Apr 24, 2021 00:07 ALEXI VOSS DO Apr 24, 2021 02:26
[2021-04-24] MEDS ORDERED: IOHEXOL 300 MG/ML 75 ML VIAL. IV ONE (00:15)
[2021-04-24] MEDS ORDERED: CONTRAST GIVEN. MC PRN (00:15)
[2021-04-24 00:18] LABS: BASO # 0.1 x10^3/uL (0.0-0.2); BASO % 1 % (0-3); EOS # 0.1 x10^3/uL (0.0-0.7); EOS % 2 % (0-3); HEMATOCRIT 41.2 % (36.0-47.0); HEMOGLOBIN 13.9 g/dL (12.0-15.5); LYMPH # 2.8 x10^3/uL (1.0-4.8); LYMPH % 31 % (24-48); MEAN CORPUSCULAR HEMOGLOBIN 32 pg (25-35); MEAN CORPUSCULAR HGB CONC 34 g/dL (31-37); MEAN CORPUSCULAR VOLUME 96 fL (79-100); MONO # 0.5 x10^3/uL (0.0-1.1); MONO % 6 % (0-9); NEUT # 5.4 x10^3uL (1.8-7.7); NEUT % 61 % (31-73); PLATELET COUNT 241 x10^3/uL (140-400); RED CELL DISTRIBUTION WIDTH 12.9 % (11.5-14.5); WHITE BLOOD COUNT 8.9 x10^3/uL (4.0-11.0)
[2021-04-24 00:24] LABS: CALCIUM 9.6 mg/dL (8.5-10.1); CREATININE 0.9 mg/dL (0.6-1.0); GFR 64.3; POTASSIUM 3.6 mmol/L (3.5-5.1)
[2021-04-24 00:31] LABS: ALBUMIN 3.8 g/dL (3.4-5.0); ALBUMIN/GLOBULIN RATIO 0.9 (1.0-1.7); TOTAL BILIRUBIN 0.5 mg/dL (0.2-1.0); TOTAL PROTEIN 7.9 g/dL (6.4-8.2)
--- NOTE | 2021-04-24 00:52 | RAD ---
EXAMINATION: CT ABDOMEN+PELVIS W CLINICAL HISTORY: Umbilical abdominal pain TECHNIQUE: CT of the abdomen and pelvis was performed using standard technique, scanning from just ab ove the dome of the diaphragm to the symphysis pubis following administration of intravenous contrast . CT Dose Reduction Employed: One or more of the following individualized dose reduction techniques wer e utilized for this examination: 1. Automated exposure control 2. Adjustment of the mA and/or kV ac cording to patient size 3. Use of iterative reconstruction technique. COMPARISON: None FINDINGS: Visualized heart and lungs unremarkable. Mildly dilated pancreatic duct measuring up to 5 mm. No visualized pancreatic mass. Diffuse hypoatten uation of the hepatic parenchyma, compatible with steatosis. Gallbladder, spleen, and adrenal glands unremarkable. Subcentimeter hypoenhancing cortical focus in the left kidney, too small adequately characterize. Nondiagnostic evaluation of the nondistended urinary bladder. Hysterectomy. No bowel dilation or definite wall thickening. Appendix within normal limits. Mild arterial atherosclerotic calcification without aneurysm. Prominent but nonenlarged retroperitone al lymph nodes measuring up to 8 mm in short axis, nonspecific but possibly reactive. No evidence of acute osseous abnormality. IMPRESSION: No evidence of acute abdominopelvic abnormality. Mildly dilated pancreatic duct, nonspecific. Consider nonemergent/outpatient MRCP for further evaluat ion as indicated. Electronically signed by: Gerald Shrestha DO (04/24/2021 12:49 AM) [facility]
[2021-04-24] MEDS ORDERED: LIDO:MAALOX 1:1 20 ML SINGLE DOSE. PO ONE (01:00)
[2021-04-24] MEDS ORDERED: ONDA4TAB12 PO (01:06)
[2021-04-24] MEDS ORDERED: PROMETHAZINE 25MG 4TABLET STARTPACK. PO ONE ×2 (01:33→01:45)
[2021-04-24] MEDS ORDERED: ONDANSETRON ODT 4 MG TAB.RAPDIS ONE (01:40)
[2021-04-24] MEDS ORDERED: ONDANSETRON ODT 4 MG TAB.RAPDIS PO ONE (01:45)
[2021-04-24] MEDS ORDERED: diphenhydrAMINE HCL 25 MG CAPSULE PO ONE (02:00)
[2021-04-24 02:12] LABS: BARBITURATES NEG (NEG); BENZODIAZEPINES NEG (NEG); CANNABINOIDS POS (NEG); COCAINE NEG (NEG); METHADONE NEG (NEG); OPIATES NEG (NEG); PHENCYCLIDINE NEG (NEG)
[2021-04-24 02:13] LABS: AMPHETAMINE/METHAMPHETAMINE NEG (NEG)
--- NOTE | 2021-04-24 02:13 | EKG ---
[address] [address] Test Date: 2021-04-24 Test Time: 02:01:13 Pat Name: MURRAY REYES Department: Room: Gender: F Patternator: : 1965 Requested By: ALEXI VOSS Order Number: [id number] Reading MD: Kevan Kennedy MD Measurements Intervals [place] Rate: 66 P: 52 AR: 236 QRS: 5 QRSD: 76 T: 47 QT: 376 QTc: 396 Interpretive Statements SINUS RHYTHM 1ST DEGREE AVB Electronically Signed On 04-24-2021 17:31:03 CDT by Kevan Kennedy MD
[2021-04-24 02:15] LABS: BACTERIA,URINE 0 /HPF (0-FEW); BILIRUBIN,URINE NEG (NEG); CLARITY,URINE CLEAR; COLOR,URINE YELLOW; GLUCOSE,URINE NEG (NEG); NITRITE,URINE NEG (NEG); RBC,URINE 0 /HPF (0-2); SQUAMOUS EPITHELIAL CELL,UR FEW /LPF; UROBILINOGEN,URINE 0.2 mg/dL (0.2 mg/dL); WBC,URINE RARE /HPF (0-4)
[2021-04-24 02:58] VITALS: BP 148/75
== END 2021-04-24 03:06 | disposition home or self-care (01) ==
LOC: ER 23:46
DX: R10.33 Periumbilical pain (principal); F12.10 Cannabis abuse, uncomplicated; J44.9 Chronic obstructive pulmonary disease, unspecified; F17.210 Nicotine dependence, cigarettes, uncomplicated; Z20.822 Contact with and (suspected) exposure to COVID-19; Z90.710 Acquired absence of both cervix and uterus; Z88.0 Allergy status to penicillin; Z88.6 Allergy status to analgesic agent; Z88.1 Allergy status to other antibiotic agents
CPT/HCPCS: 36415; 74177; 80053; 80307; 81001; 83690; 84484; 85025; 93005; 96361; 96374; 96375; 96376; 99285; C9803; J2405; J3010; J7030; Q0162; Q0163; Q9967; U0003

== ENCOUNTER 2021-07-13 12:00 | Emergency (ER) | payer OTHER ==
[~2021-07-13] VITALS: Ht 175.3 cm; Wt 85.0 kg
[~2021-07-13 12:00] MED LIST changes: +ONDA4TAB12 PO
--- NOTE | 2021-07-13 12:06 | PHYS DOC ---
Past History Past Medical History: Anxiety, COPD, Depression, HIV, Other Additional Past Medical Histor: PTSD, neuropathy Past Surgical History: Hysterectomy, Other Additional Past Surgical Histo: per pt- plates and screws to right leg; right foot Smoking: Cigarettes, Greater than 1 pack/day Alcohol Use: None Drug Use: None Adult General HPI HPI Patient is a 56-year-old female presenting for shortness of breath via EMS. Has history of anxiety, COPD with prior history of smoking and no oxygen use on inhaler therapy, and HIV on antiretroviral therapy with undetectable levels with all care provided at [facility]. States symptoms started 5 days prior with upper respiratory nasal congestion Review of Systems Review of Systems Fourteen body systems of review of systems have been reviewed. See HPI for pertinent positives and negative responses, other rodgers all other systems are negative, non-pertinent or non-contributory Allergies Allergies Allergies Coded Allergies Type Severity Reaction Last Updated Verified amoxicillin Allergy Intermediate Rash 04/24/21 Yes NSAIDS (Non-Steroidal Anti-Inflamma Adverse Reaction Intermediate Nausea and Vomiting 04/24/21 Yes aspirin Adverse Reaction Intermediate gi 04/24/21 No tetracycline Adverse Reaction Intermediate gi 04/24/21 No Physical Exam Physical Exam General: Appears well, non toxic, and comfortable Skin: Warm, dry. Normal for ethnicity. HEENT: Atraumatic. PERRLA. Rhinorrhea and congestion. Nasal turbinates boggy b/l. Moist mucous membranes. Uvula midline. Maintaining secretions. No phonation changes. Neck: Trachea midline. Normal ROM. No stridor. Respiratory: Normal WOB. Wheezes present globally most present during end expiratory phase of respiration, crackles present to bilateral lung bases. No tachypnea. Cardiovascular: Regular rate and rhythm. Normal peripheral perfusion. Abdomen: Soft. Non tender. No distension. Back: Normal ROM. Musculoskeletal: No swelling or deformity. Neuro: Alert and oriented x 4. MAEE. Lymph: No cervical LAD. Psych: Normal affect and mood. Current Patient Data Vital Signs Vital Signs Date Time Temp Pulse Resp B/P (MAP) Pulse Ox O2 Delivery O2 Flow Rate FiO2 07/13/21 12:05 98.9 74 113/68 (83) 91 Room Air Vital Signs Date Time Temp Pulse Resp B/P (MAP) Pulse Ox O2 Delivery O2 Flow Rate FiO2 07/13/21 12:58 96 Room Air 07/13/21 12:05 98.9 74 113/68 (83) Lab Results Laboratory Tests Test 07/13/21 12:30 07/13/21 12:34 White Blood Count 6.3 x10^3/uL Red Blood Count 4.70 x10^6/uL Hemoglobin 14.9 g/dL Hematocrit 44.5 % Mean Corpuscular Volume 95 fL Mean Corpuscular Hemoglobin 32 pg Mean Corpuscular Hemoglobin Concent 33 g/dL Red Cell Distribution Width 13.5 % Platelet Count 232 x10^3/uL Neutrophils (%) (Auto) 63 % Lymphocytes (%) (Auto) 28 % Monocytes (%) (Auto) 8 % Eosinophils (%) (Auto) 1 % Basophils (%) (Auto) 0 % Neutrophils # (Auto) 3.9 x10^3uL Lymphocytes # (Auto) 1.7 x10^3/uL Monocytes # (Auto) 0.5 x10^3/uL Eosinophils # (Auto) 0.1 x10^3/uL Basophils # (Auto) 0.0 x10^3/uL Sodium Level 139 mmol/L Potassium Level 4.0 mmol/L Chloride Level 101 mmol/L Carbon Dioxide Level 25 mmol/L Anion Gap 13 Blood Urea Nitrogen 16 mg/dL Creatinine 1.0 mg/dL Estimated GFR (Cockcroft-Gault) 56.9 BUN/Creatinine Ratio 16 Glucose Level 104 mg/dL Lactic Acid Level 1.1 mmol/L Calcium Level 8.9 mg/dL Total Bilirubin 0.5 mg/dL Aspartate Amino Transf (AST/SGOT) 19 U/L Alanine Aminotransferase (ALT/SGPT) 25 U/L Alkaline Phosphatase 101 U/L Troponin I High Sensitivity 7 ng/L Total Protein 7.7 g/dL Albumin 4.0 g/dL Albumin/Globulin Ratio 1.1 Influenza Type A (Rapid) Negative Influenza Type B (Rapid) Negative SARS-CoV-2 Antigen (Rapid) Negative Current Medications Medications (Trade) Dose Ordered Sig/Fantasma Route PRN Reason Start Time Stop Time Status Last Admin Dose Admin Albuterol/ Ipratropium (Duoneb) 3 ml 1X ONCE NEB 07/13/21 12:30 07/13/21 12:31 DC 07/13/21 12:57 Azithromycin (Zithromax) 500 mg 1X ONCE PO 07/13/21 13:45 07/13/21 13:46 DC 07/13/21 14:01 Prednisone (Prednisone) 60 mg 1X ONCE PO 07/13/21 13:45 07/13/21 13:46 DC 07/13/21 14:00 Fentanyl Citrate (Fentanyl 2ml Vial) 50 mcg 1X ONCE IVP 07/13/21 14:15 07/13/21 14:16 DC 07/13/21 14:04 Sodium Chloride 500 ml @ 0 mls/hr 1X ONCE IV 07/13/21 14:00 07/13/21 14:01 DC 07/13/21 14:02 EKG EKG EKG ordered and interpreted by myself at 1250 hrs. as sinus rhythm at 77 bpm, unremarkable intervals, no axis deviation, T wave inversion noted in lead aVL otherwise no ischemic findings, no STEMI Radiology/Procedures Radiology/Procedures EXAM: CHEST 1 VIEW History: Shortness of breath COMPARISON: 02/06/2021 TECHNIQUE: Single portable radiograph of the chest FINDINGS: The cardiac silhouette is unremarkable. Mild bibasilar lung atelectasis or infiltrates. The costophrenic sulci are clear and well demarcated. IMPRESSION: Mild bibasilar lung atelectasis or infiltrates. Electronically signed by: Jose Gurrola MD (07/13/2021 1:22 PM) [id number] ] Heart Score C/O Chest Pain: No Risk Factors: Risk Factors: DM, Current or recent (<one month) smoker, HTN, HLP, family history of CAD, obesity. Risk Scores: Risk Factors: DM, Current or recent (<one month) smoker, HTN, HLP, family history of CAD, obesity. Course & Med Decision Making Course & Med Decision Making ABCs unremarkable HPI physical exam and comprehensive ER work-up obtained and nonconcerning for any emergent or surgical issues Discussed most likely diagnosis of COPD exacerbation and high risk individual who is fully vaccinated against COVID-19. Joint decision made to start steroids and antibiotics with PCR COVID pending Patient has good access to primary care and given that she is hemodynamically stable with appropriate medications and inhalers at home, she is requesting discharge which I feel is appropriate Ultimately, strict return precautions discussed with good understanding verbalized by patient prior to ER departure Keyur Disclaimer Dragon Disclaimer This electronic medical record was generated, in whole or in part, using a voice recognition dictation system. Departure Departure: Impression: Primary Impression: COPD with exacerbation Additional Impression: Upper respiratory infection Disposition: HOME / SELF CARE / HOMELESS Condition: STABLE Referrals: PCP,UNKNOWN (PCP) Additional Instructions: You were seen for a COPD exacerbation. Please continue your current regimen for symptom control and if prescribed any medications during your ED visit today, take them as prescribed until completion or your primary doctor changes your medications. It will be important that you follow up with your primary doctor/lawyer after this ED visit. Return to the ED if you develop wo rsening cough, shortness of breath, fever > 101, chest pain, or any other new or concerning symptoms. Scripts Prednisone (PREDNISONE) 20 Mg Tablet 40 MG PO DAILY for bronchitis for 5 Days, #10 TAB Prov: KELSY ZAMUDIO DO 07/13/21 Azithromycin (AZITHROMYCIN TABLET) 250 Mg Tablet 250 MG PO DAILY for ANTI-BIOTIC for 4 Days, #4 TAB 0 Refills Prov: KELSY ZAMUDIO DO 07/13/21 Problem Qualifiers KELSY ZAMUDIO DO Jul 13, 2021 12:06
[2021-07-13] MEDS ORDERED: IPRATRPIUM/ALBUTEROL 0.5/2.5MG 3 ML NEBU. NEB ONE (12:30)
[2021-07-13 12:56] LABS: BASO % 0 % (0-3); EOS # 0.1 x10^3/uL (0.0-0.7); EOS % 1 % (0-3); HEMATOCRIT 44.5 % (36.0-47.0); HEMOGLOBIN 14.9 g/dL (12.0-15.5); LYMPH # 1.7 x10^3/uL (1.0-4.8); LYMPH % 28 % (24-48); MEAN CORPUSCULAR HEMOGLOBIN 32 pg (25-35); MEAN CORPUSCULAR HGB CONC 33 g/dL (31-37); MEAN CORPUSCULAR VOLUME 95 fL (79-100); MONO # 0.5 x10^3/uL (0.0-1.1); MONO % 8 % (0-9); NEUT # 3.9 x10^3uL (1.8-7.7); NEUT % 63 % (31-73); PLATELET COUNT 232 x10^3/uL (140-400); RED CELL DISTRIBUTION WIDTH 13.5 % (11.5-14.5); WHITE BLOOD COUNT 6.3 x10^3/uL (4.0-11.0)
[2021-07-13 13:12] LABS: INFLUENZA A PATIENT NEGATIVE (NEGATIVE); INFLUENZA B PATIENT NEGATIVE (NEGATIVE)
[2021-07-13 13:17] LABS: CALCIUM 8.9 mg/dL (8.5-10.1); GFR 56.9
[2021-07-13 13:22] LABS: ALBUMIN/GLOBULIN RATIO 1.1 (1.0-1.7); TOTAL BILIRUBIN 0.5 mg/dL (0.2-1.0); TOTAL PROTEIN 7.7 g/dL (6.4-8.2)
--- NOTE | 2021-07-13 13:24 | RAD ---
EXAM: CHEST 1 VIEW History: Shortness of breath COMPARISON: 02/06/2021 TECHNIQUE: Single portable radiograph of the chest FINDINGS: The cardiac silhouette is unremarkable. Mild bibasilar lung atelectasis or infiltrates. Th e costophrenic sulci are clear and well demarcated. IMPRESSION: Mild bibasilar lung atelectasis or infiltrates. Electronically signed by: Jose Gurrola MD (07/13/2021 1:22 PM) [id number]
--- NOTE | 2021-07-13 13:33 | EKG ---
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
[2021-07-13] MEDS ORDERED: predniSONE 20 MG TABLET PO ONE (13:45)
[2021-07-13] MEDS ORDERED: AZITHROMYCIN 250 MG TABLET. PO ONE (13:45)
[2021-07-13] MEDS ORDERED: IV NORMAL SALINE 500ML 500 ML IV ONE (14:00)
[2021-07-13] MEDS ORDERED: AZIT250T6 PO (16:09)
[2021-07-13] MEDS ORDERED: PRED20TA PO (16:09)
[2021-07-13 17:05] VITALS: BP 98/57
== END 2021-07-13 17:25 | disposition home or self-care (01) ==
LOC: ER 12:00
DX: U07.1 COVID-19 (principal); J44.1 Chronic obstructive pulmonary disease with (acute) exacerbation; J06.9 Acute upper respiratory infection, unspecified; F41.9 Anxiety disorder, unspecified; F32.9 Major depressive disorder, single episode, unspecified; F17.210 Nicotine dependence, cigarettes, uncomplicated; Z88.1 Allergy status to other antibiotic agents; Z88.6 Allergy status to analgesic agent
CPT/HCPCS: 71045; 80053; 83605; 84484; 85025; 87040; 93005; 94640; 96374; 99285; C9803; J3010; J7040; J7512; U0003

== ENCOUNTER 2021-07-24 05:06 | Emergency (ER) | payer OTHER ==
[~2021-07-24] VITALS: Ht 175.3 cm; Wt 84.0 kg
[~2021-07-24 05:06] MED LIST changes: +AZIT250T6 PO
--- NOTE | 2021-07-24 05:23 | PHYS DOC ---
Past History Past Medical History: Anxiety, COPD, Depression, HIV, Other Additional Past Medical Histor: PTSD, neuropathy (JONATHAN PERDUE MD) Past Surgical History: Hysterectomy, Other Additional Past Surgical Histo: per pt- plates and screws to right leg; right foot (JONATHAN PERDUE MD) Smoking: Cigarettes, Greater than 1 pack/day Alcohol Use: None Drug Use: None (JONATHAN PERDUE MD) Adult General HPI HPI Patient is a 56-year-old female, with a past medical history of HIV on immunosuppression who was COVID-positive 10 days ago who presents to the emergency department with a chief complaint of pressure in her ears bilaterally and hot flashes over the last couple of days. States that she called her primary care physician and was directed to the emergency department. Denies any recent travels, traumas, fevers, pain or trouble swallowing, chest pain, shortness of breath, wheezing, abdominal pain, nausea, vomiting, diarrhea. Denies any dysuria, hematuria, diarrhea or blood in the stool. States she is otherwise eating normally. States she is making urine and stool normally for her. (JONATHAN PERDUE MD) Review of Systems Review of Systems Review of systems otherwise unremarkable except noted in HPI (JONATHAN PERDUE MD) Allergies Allergies Allergies Coded Allergies Type Severity Reaction Last Updated Verified amoxicillin Allergy Intermediate Rash 07/13/21 Yes Penicillins Allergy Unknown 07/13/21 Yes NSAIDS (Non-Steroidal Anti-Inflamma Adverse Reaction Intermediate Nausea and Vomiting 07/13/21 Yes aspirin Adverse Reaction Intermediate gi 07/13/21 No tetracycline Adverse Reaction Intermediate gi 07/13/21 No (JONATHAN PERDUE MD) Physical Exam Physical Exam Constitutional: Well developed, well nourished, no acute distress, non-toxic appearance. [] HENT: Normocephalic, atraumatic, bilateral external ears normal, bilateral ear canals with cerumen, but tympanic membranes visualized and not concerning, oropharynx moist, no oral exudates, nose normal. [] Eyes: conjunctiva normal, no discharge. [] Neck: Normal range of motion, no tenderness, supple, no stridor. [] Cardiovascular:Heart rate regular rhythm, no murmur [] Lungs & Thorax: Bilateral breath sounds clear to auscultation [] Abdomen: soft, no tenderness, no masses, no pulsatile masses. [] Skin: Warm, dry, no erythema, no rash. [] Back: No tenderness, no CVA tenderness. [] Extremities: No tenderness, Neurologic: Alert and oriented X 3, normal motor function, normal sensory function, able to sit, stand and walk without issue no focal deficits noted. [] Psychologic: Affect normal, judgement normal, mood normal. [] (JONATHAN PERDUE MD) EKG EKG [] (JONATHAN PERDUE MD) Radiology/Procedures Radiology/Procedures [] (JONATHAN PERDUE MD) Heart Score C/O Chest Pain: No Risk Factors: Risk Factors: DM, Current or recent (<one month) smoker, HTN, HLP, family history of CAD, obesity. Risk Scores: Risk Factors: DM, Current or recent (<one month) smoker, HTN, HLP, family history of CAD, obesity. (JONATHAN PERDUE MD) Course & Med Decision Making Course & Med Decision Making Patient is a 56-year-old female with HIV on immunosuppression who presents with pressure in her ears and hot flashes who is COVID-positive 10 days ago Vital signs not concerning. Physical exam noted above. EKG and laboratory analysis pending. Patient care handed off to day team for continued evaluation, treatment and disposition. [] (JONATHAN PERDUE MD) Course & Med Decision Making 0600: Dr. Middleton assuming care from Dr. Perdue. I agree with his history of present illness and physical examination as documented above. In brief, 56-year-old female with a history of well-controlled HIV (nondetectable viral load per her) who is fully immunized against COVID-19 presenting about 10 days after the onset of COVID-19 symptoms (confirmed positive by PCR testing) for medical screening. She reports persistent symptoms including feeling fatigued with exertion, nausea/vomiting with a couple of episodes of nonbloody vomiting daily, mild watery diarrhea with a couple of loose stools daily, persistent dry cough, congestion and a sensation of pressure in her bilateral ears. She denies persistent fevers, significant shortness of breath, chest pain of any kind, abdominal pain of any kind, flank pain, midline back pain, dysuria, hematuria, polyuria or oliguria, changes in bowel habits. Patient is alert and pleasantly and appropriately interactive and in no acute distress with completely appropriate vital signs upon initial evaluation here in the emergency department. Labs and EKG reviewed and are entirely without evidence of acute process. Patient has been unable to provide a urine sample as she states she urinated before coming but low suspicion for urinary tract infection as a cause for symptoms. Likely resolving COVID infection and this vaccinated well-appearing 56-year-old. Will discharge home with Zofran and instruct her to continue Tylenol and to follow-up very closely with her primary care doctor in the next 1 to 2 days. She understands that if she feels worse instead of better or develops other new symptoms of concern that she will need to return to the emergency department right away for reevaluation. All questions are answered. (MEENAKSHI MIDDLETON MD) Dragon Disclaimer Dragon Disclaimer This electronic medical record was generated, in whole or in part, using a voice recognition dictation system. (JONATHAN PERDUE MD) Departure Departure: Impression: Primary Impression: Ear pressure Additional Impressions: Hot flashes Dry cough COVID-19 Vomiting Disposition: HOME / SELF CARE / HOMELESS Condition: IMPROVED Referrals: PCP,UNKNOWN (PCP) FABRICIO BERNSTEIN Patient Instructions: Cough, Adult, Viral Syndrome Additional Instructions: Thank you for coming into the emergency department tonight and allowing us to take care of you. Please read all the attached information carefully to go over things we discussed. Please continue a Tylenol and Benadryl regimen at home as needed. Please follow-up this morning with your primary care physician to update them on your ED visit and set up a follow-up when you can. Please come back with new or concerning symptoms as discussed. We are prescribing some Zofran for nausea. You may take a dissolvable tablet under the tongue every 8 hours as needed for nausea/vomiting. Drink lots of fluids and get plenty of rest. Return right away for worsening symptoms or for any other new symptoms of concern. Scripts Ondansetron (ONDANSETRON ODT) 4 Mg Tab.rapdis 1 TAB PO PRN Q6-8HRS for vomiting, #12 TAB Prov: MEENAKSHI MIDDLETON MD 07/24/21 Problem Qualifiers JONATHAN PERDUE MD Jul 24, 2021 05:23 MEENAKSHI MDIDLETON MD Jul 24, 2021 06:46
--- NOTE | 2021-07-24 05:51 | RAD ---
Single view chest dated 07/24/2021 5:48 AM: COMPARISON: 07/13/2021 Clinical Indication: Cough and fever. Findings: Single upright portable exam of the chest was performed. Heart size and mediastinal contours are with in normal limits. Lungs are clear. No consolidation or pleural effusion. No pneumothorax. IMPRESSION: No acute radiographic abnormality. Electronically signed by: Noah Zeng MD (07/24/2021 5:48 AM) [facility]
[2021-07-24] MEDS ORDERED: ACETAMINOPHEN 500 MG TABLET PO ONE (06:00)
[2021-07-24] MEDS ORDERED: diphenhydrAMINE HCL 25 MG CAPSULE PO ONE (06:00)
[2021-07-24 06:06] LABS: BASO # 0.1 x10^3/uL (0.0-0.2); BASO % 1 % (0-3); EOS # 0.1 x10^3/uL (0.0-0.7); EOS % 1 % (0-3); HEMATOCRIT 41.4 % (36.0-47.0); HEMOGLOBIN 13.9 g/dL (12.0-15.5); LYMPH # 2.7 x10^3/uL (1.0-4.8); LYMPH % 25 % (24-48); MEAN CORPUSCULAR HEMOGLOBIN 32 pg (25-35); MEAN CORPUSCULAR HGB CONC 34 g/dL (31-37); MEAN CORPUSCULAR VOLUME 95 fL (79-100); MONO # 0.7 x10^3/uL (0.0-1.1); MONO % 7 % (0-9); NEUT # 7.2 x10^3uL (1.8-7.7); NEUT % 66 % (31-73); PLATELET COUNT 260 x10^3/uL (140-400); RED BLOOD COUNT 4.37 x10^6/uL (3.50-5.40); RED CELL DISTRIBUTION WIDTH 13.9 % (11.5-14.5); WHITE BLOOD COUNT 10.8 x10^3/uL (4.0-11.0)
[2021-07-24 06:20] LABS: CALCIUM 8.8 mg/dL (8.5-10.1); GFR 56.9; POTASSIUM 4.4 mmol/L (3.5-5.1)
[2021-07-24 06:26] LABS: ALBUMIN 3.5 g/dL (3.4-5.0); ALBUMIN/GLOBULIN RATIO 0.9 (1.0-1.7); TOTAL BILIRUBIN 0.9 mg/dL (0.2-1.0); TOTAL PROTEIN 7.2 g/dL (6.4-8.2)
--- NOTE | 2021-07-24 06:42 | EKG ---
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
[2021-07-24] MEDS ORDERED: ONDA4TAB12 PO (06:46)
[2021-07-24 06:56] VITALS: BP 108/69
[2021-07-24] MEDS ORDERED: ONDANSETRON ODT 4 MG TAB.RAPDIS PO ONE (07:00)
== END 2021-07-24 06:55 | disposition home or self-care (01) ==
LOC: ER 05:06
DX: U07.1 COVID-19 (principal); N95.1 Menopausal and female climacteric states; H93.90 Unspecified disorder of ear, unspecified ear
CPT/HCPCS: 36415; 71045; 80053; 84484; 85025; 93005; 99285; Q0162; Q0163

== ENCOUNTER 2021-08-25 09:55 | Emergency (ER) | payer OTHER ==
[~2021-08-25] VITALS: Ht 175.3 cm; Wt 84.0 kg
[2021-08-25 10:06] VITALS: BP 138/109
[2021-08-25] MEDS ORDERED: PROCHLORPERAZINE 10 MG/2 ML VIAL. IV ONE (10:15)
[2021-08-25] MEDS ORDERED: IV NORMAL SALINE 1,000ML 1,000 ML IV ONE (10:15)
[2021-08-25] MEDS ORDERED: PANTOPRAZOLE IV 40 MG VIAL. IVP ONE (10:15)
[2021-08-25] MEDS ORDERED: diphenhydrAMINE 50 MG/ML VIAL IVP ONE (10:15)
--- NOTE | 2021-08-25 10:23 | EKG ---
[address] [address] Test Date: 2021-08-25 Test Time: 10:20:42 Pat Name: MURRAY REYES Department: Room: Gender: F Ferruler: : 1965 Requested By: KELSY ZAMUDIO Order Number: [id number] Reading MD: Baudilio Solis Measurements Intervals [place] Rate: 57 P: 57 [place]: 188 QRS: 9 QRSD: 74 T: 64 QT: 384 QTc: 376 Interpretive Statements SINUS RHYTHM T ABNORMALITY IN HIGH LATERAL LEADS Electronically Signed On 08-25-2021 13:45:42 ELECTRICAL PROSPECTING OPERATOR by Baudilio Solis
--- NOTE | 2021-08-25 10:40 | PHYS DOC ---
Past History Past Medical History: Anxiety, COPD, Depression, HIV, Other Additional Past Medical Histor: PTSD, neuropathy Past Surgical History: Hysterectomy, Other Additional Past Surgical Histo: per pt- plates and screws to right leg; right foot Smoking: Cigarettes, Greater than 1 pack/day Alcohol Use: None Drug Use: None Adult General Chief Complaint Chief Complaint: NAUSEA/VOMITING/DIARRHEA HPI HPI Patient is a 56-year-old female presenting for nausea and vomit. States she has had chronic GI issues and had upper endoscopy performed in outpatient setting at [facility] 48 hours ago. No obvious abnormalities, states she was started on Protonix twice daily but admits she was not sure which medication she was and was not supposed to restart after her outpatient procedure. As such, she has not taken any medications besides her daily HIV treatment since her procedure in fear of unintended side side effects. She states in the past 24 hours she has had x2 episodes of nonbloody nonbilious emesis and has been acutely anxious with generalized palpitations at times. She had a telehealth appointment with her [facility] outpatient provider who called in a prescription for Zofran for her nausea but patient admits she did not pick this up. She did not get the answer she wanted during her telehealth visit and was still anxious about her health so she came in for evaluation today. Review of Systems Review of Systems Fourteen body systems of review of systems have been reviewed. See HPI for pertinent positives and negative responses, other rodgers all other systems are negative, non-pertinent or non-contributory Current Medications Current Medications Current Medications Medications (Trade) Dose Ordered Sig/Fantasma Start Time Stop Time Status Last Admin Dose Admin Diphenhydramine HCl (Benadryl) 50 mg 1X ONCE 08/25/21 10:15 08/25/21 10:16 UNV Pantoprazole Sodium (Protonix Vial) 40 mg 1X ONCE 08/25/21 10:15 08/25/21 10:16 UNV Prochlorperazine Edisylate (Compazine) 10 mg 1X ONCE 08/25/21 10:15 08/25/21 10:16 UNV Sodium Chloride 1,000 ml @ 1,000 mls/hr 1X ONCE 08/25/21 10:15 08/25/21 11:14 UNV Allergies Allergies Allergies Coded Allergies Type Severity Reaction Last Updated Verified amoxicillin Allergy Intermediate Rash 08/25/21 Yes Penicillins Allergy Unknown 08/25/21 Yes NSAIDS (Non-Steroidal Anti-Inflamma Adverse Reaction Intermediate Nausea and Vomiting 08/25/21 Yes aspirin Adverse Reaction Intermediate gi 08/25/21 No tetracycline Adverse Reaction Intermediate gi 08/25/21 No Physical Exam Physical Exam Constitutional: Well developed, well nourished, no acute distress, non-toxic appearance. HENT: Normocephalic, atraumatic, bilateral external ears normal, oropharynx moist, no oral exudates, nose normal. Eyes: PERRLA, EOMI, conjunctiva normal, no discharge. Neck: Normal range of motion, no tenderness, supple, no stridor. Cardiovascular: Heart rate regular, sinus rhythm, no murmurs rubs or gallops Lungs & Thorax: Bilateral breath sounds clear to auscultation Abdomen: Bowel sounds normal, soft, no tenderness, no masses, no pulsatile masses. Nonsurgical abdomen, no peritoneal signs Skin: Warm, dry, no erythema, no rash. Back: No tenderness, no CVA tenderness. Extremities: No tenderness, no cyanosis, no clubbing, ROM intact, no edema. Neurologic: Alert and oriented X 3, grossly normal motor & sensory function, no focal deficits noted. Psychologic: Anxious affect and mood Current Patient Data Vital Signs Vital Signs Date Time Temp Pulse Resp B/P (MAP) Pulse Ox O2 Delivery O2 Flow Rate FiO2 08/25/21 10:06 81 22 138/109 (119) 99 Room Air EKG EKG EKG ordered and interpreted by myself at 1023 hrs. as sinus rhythm at 57 bpm, unremarkable intervals, no axis deviation, no STEMI Radiology/Procedures Radiology/Procedures [] Heart Score C/O Chest Pain: No HEART Score for Chest Pain: HEART Score for Chest Pain Response (Comments) Value History Slighlty/Non-Suspicious 0 ECG Normal 0 Age >45 - < 65 1 Risk Factors 1 or 2 Risk Factors 1 Troponin < Normal Limit 0 Total 2 Risk Factors: Risk Factors: DM, Current or recent (<one month) smoker, HTN, HLP, family history of CAD, obesity. Risk Scores: Risk Factors: DM, Current or recent (<one month) smoker, HTN, HLP, family history of CAD, obesity. Course & Med Decision Making Course & Med Decision Making ABCs unremarkable HPI physical exam and comprehensive ER work-up nonconcerning Patient complaining of various complaints, all likely anxiety and etiology. Reported tension type headache and nausea improved with IV fluids, Compazine, Benadryl. Patient's generalized epigastric pain improved with Protonix. I reviewed entirety of patient's presenting issues. Patient safe to resume all home medications. She has been off her anxiety medications which are contributory to presenting visit today. Also advised her to start Protonix twice daily that was prescribed 48 hours ago Disclose no indication for further diagnostic work-up nor need for hospitalization at present, all questions and concerns addressed prior to ER departure Dragfadumo Disclaimer Dragon Disclaimer This electronic medical record was generated, in whole or in part, using a voice recognition dictation system. Departure Departure: Impression: Primary Impression: Nausea & vomiting Additional Impressions: Headache Anxiety Referrals: PCP,UNKNOWN (PCP) Additional Instructions: You were seen for nausea, vomiting, headache and other symptoms. These resolved with provided ER intervention. Your work-up was grossly nonconcerning for any emergent or surgical issues. As discussed, you should utilize recently prescribed omeprazole as scheduled to completion with instructions to follow-up with GI and PCP in outpatient setting this upcoming week for repeat evaluation. You should return to the ED if you develop abdominal pain, fever > 100.3, black/bloody stools, black/bloody vomiting, cannot keep water down, or any other new or concerning symptoms. Problem Qualifiers KELSY ZAMUDIO DO Aug 25, 2021 10:40
[2021-08-25 11:04] LABS: BASO # 0.1 x10^3/uL (0.0-0.2); BASO % 1 % (0-3); EOS # 0.1 x10^3/uL (0.0-0.7); EOS % 1 % (0-3); HEMATOCRIT 41.7 % (36.0-47.0); HEMOGLOBIN 14.2 g/dL (12.0-15.5); LYMPH # 1.9 x10^3/uL (1.0-4.8); LYMPH % 26 % (24-48); MEAN CORPUSCULAR HEMOGLOBIN 32 pg (25-35); MEAN CORPUSCULAR HGB CONC 34 g/dL (31-37); MEAN CORPUSCULAR VOLUME 94 fL (79-100); MONO # 0.4 x10^3/uL (0.0-1.1); MONO % 5 % (0-9); NEUT % 68 % (31-73); PLATELET COUNT 219 x10^3/uL (140-400); RED BLOOD COUNT 4.42 x10^6/uL (3.50-5.40); RED CELL DISTRIBUTION WIDTH 13.8 % (11.5-14.5); WHITE BLOOD COUNT 7.3 x10^3/uL (4.0-11.0)
[2021-08-25 11:13] LABS: CALCIUM 9.4 mg/dL (8.5-10.1); CREATININE 0.8 mg/dL (0.6-1.0); GFR 73.7
[2021-08-25 11:20] LABS: ALBUMIN/GLOBULIN RATIO 1.2 (1.0-1.7); TOTAL BILIRUBIN 0.8 mg/dL (0.2-1.0); TOTAL PROTEIN 7.4 g/dL (6.4-8.2)
== END 2021-08-25 12:01 | disposition home or self-care (01) ==
LOC: ER 09:55
DX: F41.9 Anxiety disorder, unspecified (principal); R11.2 Nausea with vomiting, unspecified; R51.9 Headache, unspecified; J44.9 Chronic obstructive pulmonary disease, unspecified; F17.210 Nicotine dependence, cigarettes, uncomplicated; Z88.1 Allergy status to other antibiotic agents; Z88.0 Allergy status to penicillin; Z88.6 Allergy status to analgesic agent
CPT/HCPCS: 36415; 80053; 84484; 85025; 93005; 96361; 96374; 96375; 99284; C9113; J0780; J1200; J7030

== ENCOUNTER 2021-10-17 08:55 | Emergency (ER) | payer OTHER ==
[~2021-10-17] VITALS: Ht 175.3 cm; Wt 84.0 kg
[2021-10-17 09:01] VITALS: BP 131/70
--- NOTE | 2021-10-17 09:02 | PHYS DOC ---
Past History Past Medical History: Anxiety, COPD, Depression, HIV, Other Additional Past Medical Histor: PTSD, neuropathy Past Surgical History: Hysterectomy, Other Additional Past Surgical Histo: per pt- plates and screws to right leg; right foot Smoking: Cigarettes, Greater than 1 pack/day Alcohol Use: None Drug Use: None General Adult EDM: Chief Complaint: CHEST PAIN HPI: HPI: Patient is a 56-year-old female here with multiple complaints. She reports that she thinks that she has a sunburn after going to a tanning [place] several days ago. She also reports having a headache since then. She denies fall, head injury, syncope. She denies thunderclap headache. She denies visual disturbance, photophobia, visual aura. She denies neck pain or stiffness. She also reports right sided chest pain, which is worse with movement, particularly rolling over in bed this pain has been present for over 24 hours. She denies pleuritic pain, cough, dyspnea. She reports mild nausea, no vomiting. She reports mild epigastric abdominal discomfort. She denies lower abdominal pain. She denies constipation or diarrhea. She denies any urinary symptoms. She den ies fevers or chills. She denies syncope or near syncope. She admits that she has some significant anxiety issues, and she feels that all the symptoms are making her anxiety worse. She reports that she was told not to go to the tanning [place] by her primary care physician, because of the possibility of sensitivity with all of her prescription medications. She reports that she is planning on going to [place] with one of her family members and wanted to get it hand before she goes, so she is upset about not being able to take it anymore. Review of Systems: Review of Systems: Constitutional: Denies fever or chills Eyes: Denies change in visual acuity, denies photophobia, floaters or aura, d enies vision loss. HENT: Denies nasal congestion or sore throat Respiratory: Denies cough or shortness of breath Cardiovascular: Right-sided chest pain worse with movement. No peripheral edema, no palpitations, no syncope. GI: Epigastric abdominal pain, nausea, no vomiting, no bowel habit changes : Denies urinary symptoms Musculoskeletal: Denies back pain or joint pain Integument: "Sunburn" of the breast and upper abdomen and chest area. Neurologic: Reports mild headache. No head injury, syncope, numbness, tingling, focal motor weakness. Endocrine: Denies polyuria or polydipsia Lymphatic: Denies swollen glands Psychiatric: Chronic anxiety. Allergies: Allergies: Allergies Coded Allergies Type Severity Reaction Last Updated Verified amoxicillin Allergy Intermediate Rash 08/25/21 Yes Penicillins Allergy Unknown 08/25/21 Yes NSAIDS (Non-Steroidal Anti-Inflamma Adverse Reaction Intermediate Nausea and Vomiting 08/25/21 Yes aspirin Adverse Reaction Intermediate gi 08/25/21 No tetracycline Adverse Reaction Intermediate gi 08/25/21 No Physical Exam: PE: Constitutional: Well developed, well nourished, no acute distress, non-toxic appearance. She is anxious. Not ill-appearing. HENT: Normocephalic, atraumatic, oropharynx is patent and clear. Mucous members are moist. No evidence of facial or scalp or oral trauma. TMs are clear bilaterally. Nares are patent and clear without rhinorrhea or epistaxis Eyes: PERRL, EOMI, conjunctiva normal, no discharge. No nystagmus. No scleral icterus. No periorbital edema, erythema or contusion Neck: Normal range of motion, no tenderness, supple, no stridor. No midline tenderness or step-offs. Trachea is midline, no meningismus. Cardiovascular:Heart rate regular rhythm, +2 radial and +2 posterior tibial pulses bilaterally Lungs & Thorax: Lungs are clear to auscultation bilaterally without rales, rhonchi or wheezes. Equal chest rise. No crepitus or subcutaneous emphysema. Palpation of the right lower chest reproduces her chest pain. No chest wall deformity or evidence of trauma is noted. Abdomen: Abdomen is obese, soft, nondistended, nontender to palpation. No palpable masses organomegaly. No CVA tenderness. No evidence of abdominal or flank trauma. No palpable pulsatile mass. Skin: Warm, dry, no open wounds. There is subtle erythema under both breasts. No vesicles, pustules, papules. No sharply demarcated lesions or rash noted Back: No tenderness, no CVA tenderness. All range of motion, no step-offs. Extremities: No tenderness, no cyanosis, no clubbing, ROM intact, no edema. No calf tenderness. Neurologic: Alert and oriented X 3, normal motor function, normal sensory function, no focal deficits noted. [] Psychologic: Anxious, cooperative. EKG: EKG: EKG is interpreted at 0916 Rhythm is sinus Rate is 61 bpm [place] is normal No STEMI No acute ischemia Radiology/Procedures: Radiology/Procedures: IMAGING REPORT Signed PATIENT: MURRAY REYES ACCOUNT: [id number] : 1965 LOCATION: ER AGE: 56 SEX: F EXAM STATUS: REG ER ORD. PHYSICIAN: MALINA YOUNG DO REASON: chest pain PROCEDURE: PORTABLE CHEST 1V XR CHEST 1V History: Chest pain Comparison: 07/24/2021. Technique: AP radiograph of the chest. Findings: The lungs are adequately and symmetrically inflated. No airspace consolidation, pleural effusion or pneumothorax. The cardiomediastinal silhouette and pulmonary vasculature are within normal limits. No acute osseous abnormality. Soft tissues are unremarkable. Impression: 1. No acute cardiopulmonary process. Electronically signed by: Kingston Ramachandran MD (10/17/2021 9:33 AM) [id number] DICTATED AND SIGNED BY: KINGSTON RAMACHANDRAN MD DATE: 10/17/21931 CC: MALINA YOUNG DO; PCP,UNKNOWN ~ IMAGING REPORT Signed PATIENT: MURRAY REYES ACCOUNT: [id number] : 1965 LOCATION: ER AGE: 56 SEX: F EXAM STATUS: REG ER ORD. PHYSICIAN: MALINA YOUNG DO REASON: headache PROCEDURE: CT HEAD WO CONTRAST CT HEAD WITHOUT CONTRAST 10/17/2021 9:36 AM Indication: Headache Comparison: None Procedure: Multidetector CT imaging of the head was performed without the administration of contrast. Findings: There is no evidence of acute intracranial hemorrhage. There is no evidence of acute territorial infarction. Please note that CT is limited for evaluation of acute ischemia. No mass effect or midline shift is identified . The ventricles and basilar cisterns have an appropriate appearance. No abnormal extra-axial fluid collections are seen. No acute osseous changes are identified. Impression: No evidence of acute intracranial abnormality CT DOSING PQRS STATEMENT: One or more of the following individualized dose reduction techniques were utilized for this examination: 1. Automated exposure control 2. Adjustment of the mA and/or kV according to patient size 3. Use of iterative reconstruction technique Electronically signed by: Fuentes Henley MD (10/17/2021 9:43 AM) [id number] DICTATED AND SIGNED BY: FUENTES HENLEY MD DATE: 10/17/21 0941 CC: MALINA YOUNG DO; PCP,UNKNOWN ~ Heart Score: C/O Chest Pain: Yes HEART Score for Chest Pain: HEART Score for Chest Pain Response (Comments) Value History Slighlty/Non-Suspicious 0 ECG Normal 0 Age >45 - < 65 1 Risk Factors 1 or 2 Risk Factors 1 Total 2 Risk Factors: Risk Factors: DM, Current or recent (<one month) smoker, HTN, HLP, family history of CAD, obesity. Risk Scores: Score 0 - 3: 2.5% MACE over next 6 weeks - Discharge Home Score 4 - 6: 20.3% MACE over next 6 weeks - Admit for Clinical Observation Score 7 - 10: 72.7% MACE over next 6 weeks - Early Invasive Strategies Course & Med Decision Making: Course & Med Decision Making Pertinent Labs and Imaging studies reviewed. (See chart for details) The patient is given IV fluids and p.o. Tylenol here. She reports feeling much better. I discussed the findings, differential diagnosis and plan of care with her. Her ED work-up is unremarkable, no evidence of acute life-threatening process noted on imaging studies or laboratory exams. I recommend she stop tanning, because photosensitivity may occur with her medications, but she appears to have at least a mild sunburn, and I explained the dangers of UV exposure. I recommend she contact her PCP for further discussion and care. Return precautions are given. She verbalizes understanding. Keyur Disclaimer: Keyur Disclaimer: This electronic medical record was generated, in whole or in part, using a voice recognition dictation system. Departure Departure: Impression: Primary Impression: Atypical chest pain Additional Impressions: Headache Qualified Codes: R51.9 - Headache, unspecified Anxiety Disposition: 01 HOME / SELF CARE / HOMELESS Condition: STABLE Referrals: PCP,UNKNOWN (PCP) Patient Instructions: Chest Pain (Nonspecific), General Headache Without Cause Additional Instructions: Return to the ER for acute changes in pain, uncontrolled vomiting, dehydration, focal weakness, temperature 100.4 or higher or other concerns. Stay hydrated, stay out of the sun, avoid tanning celest[place], you should use SPF when you are outdoors or exposed to UV light. Follow-up with your primary care physician. Scripts Ondansetron (ONDANSETRON ODT) 4 Mg Tab.rapdis 1 TAB PO PRN Q6-8HRS for nausea and vomiting, #20 TAB Prov: MALINA YOUNG DO 10/17/21 MALINA YOUNG DO Oct 17, 2021 09:02
[2021-10-17] MEDS ORDERED: ACETAMINOPHEN 500 MG TABLET PO ONE (09:30)
[2021-10-17] MEDS ORDERED: IV NORMAL SALINE 1,000ML 1,000 ML IV ONE (09:30)
--- NOTE | 2021-10-17 09:35 | RAD ---
XR CHEST 1V History: Chest pain Comparison: 07/24/2021. Technique: AP radiograph of the chest. Findings: The lungs are adequately and symmetrically inflated. No airspace consolidation, pleural effusion or p neumothorax. The cardiomediastinal silhouette and pulmonary vasculature are within normal limits. No acute osseous abnormality. Soft tissues are unremarkable. Impression: 1. No acute cardiopulmonary process. Electronically signed by: Kingston Ortiz MD (10/17/2021 9:33 AM) [id number]
--- NOTE | 2021-10-17 09:45 | RAD ---
CT HEAD WITHOUT CONTRAST 10/17/2021 9:36 AM Indication: Headache Comparison: None Procedure: Multidetector CT imaging of the head was performed without the administration of contrast. Findings: There is no evidence of acute intracranial hemorrhage. There is no evidence of acute territ orial infarction. Please note that CT is limited for evaluation of acute ischemia. No mass effect or midline shift is identified . The ventricles and basilar cisterns have an appropriate appearance. No abnormal extra-axial fluid collections are seen. No acute osseous changes are identified. Impression: No evidence of acute intracranial abnormality CT DOSING PQRS STATEMENT: One or more of the following individualized dose reduction techniques were utilized for this examinat ion: 1. Automated exposure control 2. Adjustment of the mA and/or kV according to patient size 3. Use of iterative reconstruction technique Electronically signed by: Fuentes Baird MD (10/17/2021 9:43 AM) [id number]
[2021-10-17 10:29] LABS: BASO % 1 % (0-3); EOS % 1 % (0-3); HEMATOCRIT 39.9 % (36.0-47.0); HEMOGLOBIN 13.4 g/dL (12.0-15.5); LYMPH # 1.3 x10^3/uL (1.0-4.8); LYMPH % 28 % (24-48); MEAN CORPUSCULAR HEMOGLOBIN 32 pg (25-35); MEAN CORPUSCULAR HGB CONC 34 g/dL (31-37); MEAN CORPUSCULAR VOLUME 96 fL (79-100); MONO # 0.2 x10^3/uL (0.0-1.1); MONO % 5 % (0-9); NEUT # 3.1 x10^3uL (1.8-7.7); NEUT % 66 % (31-73); PLATELET COUNT 220 x10^3/uL (140-400); RED BLOOD COUNT 4.16 x10^6/uL (3.50-5.40); RED CELL DISTRIBUTION WIDTH 13.6 % (11.5-14.5); WHITE BLOOD COUNT 4.7 x10^3/uL (4.0-11.0)
[2021-10-17 10:40] LABS: CALCIUM 8.9 mg/dL (8.5-10.1); CREATININE 0.9 mg/dL (0.6-1.0); GFR 64.3; POTASSIUM 4.1 mmol/L (3.5-5.1)
[2021-10-17 10:43] LABS: BARBITURATES NEG (NEG); BENZODIAZEPINES NEG (NEG); CANNABINOIDS POS (NEG); COCAINE NEG (NEG); METHADONE NEG (NEG); OPIATES NEG (NEG); PHENCYCLIDINE NEG (NEG)
[2021-10-17 10:47] LABS: AMPHETAMINE/METHAMPHETAMINE NEG (NEG)
[2021-10-17 10:48] LABS: CLARITY,URINE CLEAR; COLOR,URINE YELLOW; GLUCOSE,URINE NEG (NEG); NITRITE,URINE NEG (NEG); RBC,URINE OCC /HPF (0-2); UROBILINOGEN,URINE 0.2 mg/dL (0.2 mg/dL)
[2021-10-17 10:49] LABS: BACTERIA,URINE 0 /HPF (0-FEW); SQUAMOUS EPITHELIAL CELL,UR FEW /LPF
[2021-10-17 10:49] LABS: ALBUMIN 3.4 g/dL (3.4-5.0); MAGNESIUM 2.1 mg/dL (1.8-2.4); TOTAL BILIRUBIN 0.5 mg/dL (0.2-1.0); TOTAL PROTEIN 6.9 g/dL (6.4-8.2)
[2021-10-17] MEDS ORDERED: ONDA4TAB12 PO (12:19)
--- NOTE | 2021-10-17 13:06 | EKG ---
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
== END 2021-10-17 12:20 | disposition home or self-care (01) ==
LOC: ER 08:55
DX: F41.9 Anxiety disorder, unspecified (principal); R07.89 Other chest pain; R51.9 Headache, unspecified; J44.9 Chronic obstructive pulmonary disease, unspecified; F32.9 Major depressive disorder, single episode, unspecified; F17.210 Nicotine dependence, cigarettes, uncomplicated; Z88.0 Allergy status to penicillin; Z88.1 Allergy status to other antibiotic agents; Z88.6 Allergy status to analgesic agent
CPT/HCPCS: 36415; 70450; 71045; 80053; 80307; 81001; 83690; 83735; 84484; 85025; 93005; 96360; 96361; 99285; J7030